=== PATIENT | male | born 1930 | race Caucasian/White ===

== ENCOUNTER 2020-04-04 12:30 | Emergency (ER) | payer OTHER ==
[2020-04-04] MEDS ORDERED: Sodium Chloride 0.9% 10 ML Syringe FLUSH PRN (12:46)
--- NOTE | 2020-04-04 13:17 | CT ---
Head CT Technique: Multiple axial sections through the brain were obtained. Intravenous contrast was not utilized. Comparison: No prior intracranial imaging is available. Findings: Ventricles along with basal cisterns and sulci over the convexities are moderately prominent. Diminished density is noted within the periventricular white matter most likely representing small vessel ischemic demyelination change. No other abnormal parenchymal densities are seen. No evidence of intracranial hemorrhage. No midline shift or mass effect is seen. Mild mucosal thickening is scattered within the ethmoid sinuses. Large portion of the left frontal sinus is opacified. Visualized mastoid sinuses show nothing acute. No acute calvarial abnormality is appreciated. Impression: 1. Paranasal sinus findings as noted above most likely representing chronic sinusitis. 2. Senescent change as noted above. 3. No acute intracranial abnormality is appreciated. Diagnostic code #3 Study was dictated in MDT
--- NOTE | 2020-04-04 14:26 | EDM.PDOC ---
ED HPI GENERAL MEDICAL PROBLEM - General Chief Complaint: Neuro Symptoms/Deficits Stated Complaint: R ARM WEAKNESS/ R BLURRED VISION Time Seen by Provider: 04/04/20 12:38 Source of Information: Reports: Patient, RN Notes Reviewed - History of Present Illness INITIAL COMMENTS - FREE TEXT/NARRATIVE: 89 yr old male referred here from [facility] for eval of possible R hand and arm weakness. He states he first noticed this about 6 month ago. He states he has stated it before to a son of his but his daughter had not heard of this problem until today. He states his R foot will occasionally catch on a rug. He has had no other difficulty walking or with daily life. He has lived alone for about the past 17 yrs after his had to go to a NH. He states vision R eye is " a little blury" but that also started "about last September, 6 months ago". Last known well 6 months ago. No hx of Htn, CAD, diabetes, CVA or TIA. He does not smoke. No recent fall or injury. 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 [No Known Home Meds] 04/04/20 [History] Past Medical History Genitourinary History: Reports: Prostate Disorder Musculoskeletal History: Reports: Other (See Below) Other Musculoskeletal History: surgery for sciatic issues - Past Surgical History GI Surgical History: Reports: Appendectomy Social & Family History - Tobacco Use Smoking Status *Q: Former Smoker Used Tobacco, but Quit: Yes Month/Year Tobacco Last Used: 50 - Caffeine Use Caffeine Use: Reports: Coffee, Soda, Tea - Recreational Drug Use Recreational Drug Use: No ED ROS GENERAL - Review of Systems Review Of Systems: See Below Constitutional: Denies: Fever, Chills, Diaphoresis HEENT: Denies: Ear Pain, Eye Discharge, Eye Pain, Sinus Problem, Throat Pain Respiratory: Denies: Shortness of Breath Cardiovascular: Denies: Chest Pain GI/Abdominal: Denies: Abdominal Pain, Nausea, Vomiting Musculoskeletal: Reports: Neck Pain (mild R chronic), Back Pain (Mild R upper back chronic). Denies: Shoulder Pain, Arm Pain Neurological: Reports: Numbness (mild numbness R forehead also present for a "long time"), Weakness (very mild weakness R hand and arm, possible weakness RLE) ED EXAM, NEURO - Physical Exam Exam: See Below General Appearance: Alert, No Apparent Distress Eye Exam: Bilateral Eye: Other (R pupil very mildly larger than L pupil, hx of prior cataract surgery) Nose: Normal Inspection Throat/Mouth: Normal Inspection Head Exam: Atraumatic. No: Facial Swelling Neck: Supple Respiratory/Chest: No Respiratory Distress, Lungs Clear, Normal Breath Sounds Cardiovascular: Regular Rate, Rhythm GI/Abdominal: Soft, Non-Tender Neurological: Alert, No Motor/Sensory Deficits, Oriented x 3, Other (normal finger to nose bilat, ambulatory without difficulty, no evidence for foot drop, or dragging of either foot) Back Exam: No: CVA Tenderness (L), CVA Tenderness (R) Extremities: Normal Inspection, Normal Range of Motion Skin Exam: Warm, Dry, Normal Color, No Rash EKG INTERPRETATION EKG Date: 04/04/20 Rhythm: Other (NSR, 1 PVC) [place]: Normal P-Wave: Present Course - Vital Signs Last Recorded V/S: Last Vital Signs Temp 97.3 F 04/04/20 12:40 Pulse 89 04/04/20 12:40 Resp 23 H 04/04/20 12:40 BP 174/81 H 04/04/20 12:40 Pulse Ox 99 04/04/20 12:40 - Orders/Labs/Meds Orders: Active Orders 24 hr Category Date Time Status EKG 12 Lead [EKG Documentation Completion] [RC] STAT Care 04/04/20 12:46 Active Peripheral IV Care [RC] . DIRECTED Care 04/04/20 12:47 Active INR,PT,PROTHROMBIN TIME [COAG] Stat Lab 04/04/20 12:48 Received Sodium Chloride 0.9% [Saline Flush] Med 04/04/20 12:46 Active 10 ml FLUSH ASDIRECTED PRN Peripheral IV Insertion Adult [OM.PC] Stat Oth 04/04/20 12:47 Ordered Medication Orders Sodium Chloride (Saline Flush) 10 ml FLUSH ASDIRECTED PRN PRN Reason: Keep Vein Open Labs: Laboratory Tests 04/04/20 04/04/20 04/04/20 Range/Units 12:42 12:48 12:48 WBC 8.12 (4.23-9.07) K/mm3 RBC 5.26 (4.63-6.08) M/mm3 Hgb 15.7 (13.7-17.5) gm/dl Hct 48.9 (40.1-51.0) % MCV 93.0 H (79.0-92.2) fl MCH 29.8 (25.7-32.2) pg MCHC 32.1 L (32.2-35.5) g/dl RDW Std Deviation 49.9 H (35.1-43.9) fL Plt Count 165 (163-337) K/mm3 MPV 10.7 (9.4-12.3) fl Neut % (Auto) 55.8 (34.0-67.9) % Lymph % (Auto) 28.9 (21.8-53.1) % [place] % (Auto) 9.7 (5.3-12.2) % Eos % (Auto) 4.6 (0.8-7.0) Baso % (Auto) 0.5 (0.1-1.2) % Neut # (Auto) 4.53 (1.78-5.38) K/mm3 Lymph # (Auto) 2.35 (1.32-3.57) K/mm3 [place] # (Auto) 0.79 (0.30-0.82) K/mm3 Eos # (Auto) 0.37 (0.04-0.54) K/mm3 Baso # (Auto) 0.04 (0.01-0.08) K/mm3 Sodium 142 (136-145) mEq/L Potassium 4.0 (3.5-5.1) mEq/L Chloride 105 (98-107) mEq/L Carbon Dioxide 27 (21-32) mEq/L Anion Gap 14.0 (5-15) BUN 15 (7-18) mg/dL Creatinine 1.8 H (0.7-1.3) mg/dL Est Cr Clr Drug Dosing TNP Estimated GFR (MDRD) 36 (>60) mL/min BUN/Creatinine Ratio 8.3 L (14-18) Glucose 155 H (83-115) mg/dL POC Glucose 125 H (83-110) mg/dL Calcium 8.9 (8.5-10.1) mg/dL Total Bilirubin 1.0 (0.2-1.0) mg/dL AST 21 (15-37) U/L ALT 25 (16-63) U/L Alkaline Phosphatase 75 (46-116) U/L Total Protein 7.2 (6.4-8.2) g/dl Albumin 3.7 (3.4-5.0) g/dl Globulin 3.5 gm/dL Albumin/Globulin Ratio 1.1 (1-2) Meds: Medications Generic Name Dose Route Start Last Admin Trade Name Manfred PRN Reason Stop Dose Admin Sodium Chloride 10 ml 04/04/20 12:46 Saline Flush FLUSH ASDIRECTED PRN Keep Vein Open - Re-Assessments/Exams Free Text/Narrative Re-Assessment/Exam: 04/04/20 14:58. Head CT no acute changes, labs are OK, creat 1.8, no prior values available for comparison. I see no indication for further workup at this time. His neuro exam is normal. He is ambulatory without difficulty. His last know well by history is last September. I am going to start him on baby a spirin 81 mg every other day. Departure - Departure Time of Disposition: 14:22 Disposition: Home, Self-Care 01 Condition: Fair Clinical Impression: Muscle weakness - Discharge Information Referrals: Frieda Hester MD [Primary Care Provider] - Forms: ED Department Discharge Additional Instructions: Continue acetaminophen up to 2 or 3 times daily if needed for discomfort. Restart aspirin 81 mg every other day or about 3 times a week. Follow up clinic as needed. Get your anual Physical at [facility] in April as planned. See your eye Dr if vision worsening in any way or if you have not had an eye exam in the past year. Return to ED as needed if symptoms worsening in any way. Sepsis Event Note (ED) - Evaluation Sepsis Screening Result: No Definite Risk - Focused Exam Vital Signs: Vital Signs Temp Pulse Resp BP Pulse Ox 04/04/20 12:40 97.3 F 89 23 H 174/81 H 99 - My Orders Last 24 Hours: My Active Orders 04/04/20 12:46 EKG 12 Lead [EKG Documentation Completion] [RC] STAT Sodium Chloride 0.9% [Saline Flush] 10 ml FLUSH ASDIRECTED PRN 04/04/20 12:47 Peripheral IV Care [RC] . DIRECTED Peripheral IV Insertion Adult [OM.PC] Stat 04/04/20 12:48 INR,PT,PROTHROMBIN TIME [COAG] Stat - Assessment/Plan Last 24 Hours: My Active Orders 04/04/20 12:46 EKG 12 Lead [EKG Documentation Completion] [RC] STAT Sodium Chloride 0.9% [Saline Flush] 10 ml FLUSH ASDIRECTED PRN 04/04/20 12:47 Peripheral IV Care [RC] . DIRECTED Peripheral IV Insertion Adult [OM.PC] Stat 04/04/20 12:48 INR,PT,PROTHROMBIN TIME [COAG] Stat
== END 2020-04-04 14:30 | disposition home or self-care (01) ==
LOC: JD.ED 12:30
DX: M62.81 Muscle weakness (generalized) (principal); Z87.891 Personal history of nicotine dependence
CPT/HCPCS: 36415; 70450; 70450-26; 80053; 82962; 85025; 85610; 93005; 93010; 99283; 99285-25

== ENCOUNTER 2021-05-10 17:04 | Inpatient (IN) | payer OTHER, MEDICARE ==
--- NOTE | 2021-05-10 17:38 | EDM.PDOC ---
ED HPI GENERAL MEDICAL PROBLEM - General Chief Complaint: Respiratory Problem Stated Complaint: [facility] Time Seen by Provider: 05/10/21 17:37 Source of Information: Reports: Patient History Limitations: Reports: No Limitations - History of Present Illness INITIAL COMMENTS - FREE TEXT/NARRATIVE: 89-year-old male presents to the ED per [facility] from his own home. He states that he has been sick for 9 days. Started with loss of voice and hoarseness. Mild sore throat. Nasal congestion. Then developed fever, chills, headache, generalized myalgia. Increasing productive cough over the last 3 days. Very weak. No appetite. Did have some diarrhea for a couple of days better today. Has not eaten today. Eaten very little in the last 3 days. States he has not been taking his medication either. He has not had COVID-19 vaccine. Patient does have a productive sounding cough. O2 sats are 96% room air. Onset: Sudden Onset Date: 05/01/21 (He estimates he has been ill for the last 9 days.) Duration: Day(s):, Getting Worse Location: Reports: Chest (Harsh paroxysmal productive cough of yellow sputum.), Generalized (Neurolysed weakness. Complete loss of appetite.), Other (Loss of appetite. Generalized severe weakness) Quality: Reports: Ache (Neurolysed body aches) Severity: Moderate Improves with: Reports: None Worsens with: Reports: Other (Very weak and dizzy upon standing.) Context: Reports: Other (Illness with fever chills x9 days). Denies: Activity, Exercise, Lifting, Sick Contact, Trauma Associated Symptoms: Reports: Cough, cough w sputum, Diaphoresis (Productive cough yellow sputum. No hemoptysis), Fever/Chills, Headaches, Loss of Appetite, Malaise, Nausea/Vomiting, Shortness of Breath, Other (Nausea with no vomiting mild diarrhea none none today). 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 [No Known Home Meds] 04/04/20 [History] Past Medical History Genitourinary History: Reports: Prostate Disorder Musculoskeletal History: Reports: Other (See Below) Other Musculoskeletal History: surgery for sciatic issues - Past Surgical History GI Surgical History: Reports: Appendectomy Social & Family History - Caffeine Use Caffeine Use: Reports: Coffee, Soda, Tea - Living Situation & Occupation Living situation: Reports: Occupation: Retired ED ROS GENERAL - Review of Systems Review Of Systems: See Below Constitutional: Reports: Fever, Chills, Malaise, Weakness, Fatigue, Decreased Appetite, Weight Loss HEENT: Reports: Glasses Respiratory: Reports: Shortness of Breath, Wheezing, Cough, Sputum. Denies: Pleuritic Chest Pain, Hemoptysis (Yellow sputum reported) Cardiovascular: Reports: Chest Pain (Central chest pain from coughing so much), Dyspnea on Exertion, Lightheadedness (With standing). Denies: Blood Pressure Problem, Claudication, Edema, Orthopnea Endocrine: Reports: Fatigue GI/Abdominal: Reports: Diarrhea (Diarrhea for 3 days. 2-3 bowel once a day none today), Nausea. Denies: Vomiting : Reports: Other (Urine is dark delvin in color. He thinks he is only gone once in the last 24 hours) Musculoskeletal: Reports: Neck Pain, Shoulder Pain (Chronic neck pain), Back Pain (Chronic low back pain), Joint Pain ( bilateral shoulder pain knees and hips at times) Skin: Reports: No Symptoms Neurological: Reports: Dizziness, Headache (Occasionally when standing.), Difficulty Walking (Severe generalized weakness. Due to weakness and shortness of breath), Weakness. Denies: Confusion, Numbness, Pre-Existing Deficit, Tingling ( With initial onset of illness not bad the last 3 days), Trouble Speaking Psychiatric: Reports: No Symptoms Hematologic/Lymphatic: Reports: No Symptoms Immunologic: Reports: No Symptoms ED EXAM, GENERAL - Physical Exam Exam: See Below Exam Limited By: Other (Mildly hard of hearing. Poor historian.) General Appearance: Moderate Distress (Appears ill.), Other ( Is very warm to palpation. Temperature is 37.2 but he feels warmer than this. Heart rate was 88 in sinus. Respiratory of 22 with O2 sats of 96 to 97% room air. BP 126/50.) Eye Exam: Bilateral Eye: Normal Inspection (No blepharal pallor or scleral icterus.), PERRL Ears: Other (Left ear was occluded with cerumen.) Throat/Mouth: Normal Inspection, Other (Tongue is moderately dry and coated) Head: Atraumatic, Normocephalic Neck: Normal Inspection, Supple, Limited Range of Motion. No: Lymphadenopathy (L), Lymphadenopathy (R) Respiratory/Chest: Respiratory Distress (Tachypnea at rest.), Decreased Breath Sounds (Creased air into the lower 25% lung griffin bilaterally), Rhonchi (Chi throughout the light right lung field particular right posterior lung.), Wheezing (Occasional expiratory wheeze both lower lobes). No: Lungs Clear, Normal Breath Sounds Cardiovascular: Regular Rate, Rhythm, No Gallop, No Murmur, No Rub. No: Normal Peripheral Pulses Peripheral Pulses: 1+: Posterior Tibial (L), Posterior Tibial (R), Dorsalis Pedis (L), Dorsalis Pedis (R), 2+: Carotid (L), Carotid (R) GI/Abdominal: Normal Bowel Sounds, Soft, Non-Tender, No Organomegaly, No Mass, Pelvis Stable Back Exam: Normal Inspection, Decreased Range of Motion (Patient has difficulty sitting up without help due to weakness and some pain in his lower back.). No: CVA Tenderness (L), CVA Tenderness (R) Extremities: Non-Tender, Pedal Edema (Trace edema at the ankles.), Other (Osteoarthritic changes both knees. Very limited internal/external rotation of either hip.). No: Normal Range of Motion Neurological: Alert, Oriented, CN II-XII Intact, Normal Cognition Psychiatric: Flat Affect, Other (He will answer me but he will not answer the nursing staff.) Skin Exam: Warm, Dry, Intact, Normal Color, No Rash #1 Interpretation EKG Date: 05/10/21 Time: 18:12 Rhythm: NSR Rate (Beats/Min): 84 Jackson: Normal P-Wave: Enlarged (Left atrial hypertrophy) QRS: Other (Q waves V1 and V2 old anteroseptal myocardial infarction. Decreased voltage limb leads) ST-T: Other (Diffuse early repolarization pattern with no signs of ischemia) QT: Normal EKG Interpretation Comments: Abnormal ECG Course - Vital Signs Last Recorded V/S: Last Vital Signs Temp 37.2 C 05/10/21 18:10 Pulse 88 05/10/21 17:10 Resp 22 H 05/10/21 17:10 BP 126/50 L 05/10/21 17:10 Pulse Ox 98 05/10/21 17:10 - Orders/Labs/Meds Orders: Active Orders 24 hr Category Date Time Status Admission Status [Patient Status] [ADT] Routine ADT 05/10/21 19:57 Ordered BLOOD CULTURE [MREF] Stat Lab 05/10/21 18:14 Received BLOOD CULTURE [MREF] Stat Lab 05/10/21 18:29 Received PROCALCITONIN [REF] Stat Lab 05/10/21 18:14 Received URINALYSIS W/MICROSCOPIC [UA W/MICROSCOPIC] [URIN] Stat Lab 05/10/21 19:35 Results Dextrose 5%-0.9% NaCl [Dextrose 5%-Normal Saline] 1,000 Med 05/10/21 19:30 Active ml IV ASDIRECTED Blood Culture x2 Reflex Set [OM.PC] Stat Oth 05/10/21 17:56 Ordered Medication Orders Dextrose/Sodium Chloride (Dextrose 5%-Normal Saline) 1,000 mls @ 150 mls/hr IV ASDIRECTED CARLOS A Labs: Laboratory Tests 05/10/21 05/10/21 05/10/21 Range/Units 17:15 18:14 18:14 WBC 3.63 L (4.23-9.07) K/mm3 RBC 4.87 (4.63-6.08) M/mm3 Hgb 14.6 (13.7-17.5) gm/dl Hct 43.5 (40.1-51.0) % MCV 89.3 D (79.0-92.2) fl MCH 30.0 (25.7-32.2) pg MCHC 33.6 (32.2-35.5) g/dl RDW Std Deviation 49.0 H (35.1-43.9) fL Plt Count 131 L (163-337) K/mm3 MPV 10.8 (9.4-12.3) fl Neutrophils % (Manual) 77 H (40-60) % Band Neutrophils % 0 (0-10) % Lymphocytes % (Manual) 17 L (20-40) % Atypical Lymphs % 0 % Monocytes % (Manual) 6 (2-10) % Eosinophils % (Manual) 0 L (0.8-7.0) % Basophils % (Manual) 0 L (0.2-1.2) Toxic Granulation Few Platelet Estimate Decreased Plt Morphology Comment See note RBC Morph Comment Normal ESR (0-15) mm/hr PT 10.8 (9.7-12.0) SECONDS INR 1.01 APTT 31.3 (21.7-31.4) SECONDS D-Dimer, Quantitative (0.19-0.50) mg/L Sodium (136-145) mEq/L Potassium (3.5-5.1) mEq/L Chloride (98-107) mEq/L Carbon Dioxide (21-32) mEq/L Anion Gap (5-15) BUN (7-18) mg/dL Creatinine (0.7-1.3) mg/dL Est Cr Clr Drug Dosing mL/min Estimated GFR (MDRD) (>60) mL/min BUN/Creatinine Ratio (14-18) Glucose (70-99) mg/dL Calcium (8.5-10.1) mg/dL Magnesium (1.8-2.4) mg/dL Total Bilirubin (0.2-1.0) mg/dL AST (15-37) U/L ALT (16-63) U/L Alkaline Phosphatase (46-116) U/L Troponin I (0.00-0.056) ng/mL C-Reactive Protein (<1.0) mg/dL NT-Pro-B Natriuret Pep (0-450) pg/mL Total Protein (6.4-8.2) g/dl Albumin (3.4-5.0) g/dl Globulin gm/dL Albumin/Globulin Ratio (1-2) Urine Color (Yellow) Urine Appearance (Clear) Urine pH (5.0-8.0) Ur Specific Sikes (1.005-1.030) Urine Protein (Negative) Urine Glucose (UA) (Negative) Urine Ketones (Negative) Urine Occult Blood (Negative) Urine Nitrite (Negative) Urine Bilirubin (Negative) Urine Urobilinogen (0.2-1.0) Ur Leukocyte Esterase (Negative) SARS-CoV-2 RNA (REMA) Positive H (NEGATIVE) 05/10/21 05/10/21 05/10/21 Range/Units 18:14 18:14 18:14 WBC (4.23-9.07) K/mm3 RBC (4.63-6.08) M/mm3 Hgb (13.7-17.5) gm/dl Hct (40.1-51.0) % MCV (79.0-92.2) fl MCH (25.7-32.2) pg MCHC (32.2-35.5) g/dl RDW Std Deviation (35.1-43.9) fL Plt Count (163-337) K/mm3 MPV (9.4-12.3) fl Neutrophils % (Manual) (40-60) % Band Neutrophils % (0-10) % Lymphocytes % (Manual) (20-40) % Atypical Lymphs % % Monocytes % (Manual) (2-10) % Eosinophils % (Manual) (0.8-7.0) % Basophils % (Manual) (0.2-1.2) Toxic Granulation Platelet Estimate Plt Morphology Comment RBC Morph Comment ESR 34 H (0-15) mm/hr PT (9.7-12.0) SECONDS INR APTT (21.7-31.4) SECONDS D-Dimer, Quantitative (0.19-0.50) mg/L Sodium 137 (136-145) mEq/L Potassium 4.3 (3.5-5.1) mEq/L Chloride 102 (98-107) mEq/L Carbon Dioxide 27 (21-32) mEq/L Anion Gap 12.3 (5-15) BUN 23 H (7-18) mg/dL Creatinine 1.6 H (0.7-1.3) mg/dL Est Cr Clr Drug Dosing 31.30 mL/min Estimated GFR (MDRD) 41 (>60) mL/min BUN/Creatinine Ratio 14.4 (14-18) Glucose 131 H (70-99) mg/dL Calcium 7.6 L (8.5-10.1) mg/dL Magnesium 2.4 (1.8-2.4) mg/dL Total Bilirubin 0.9 (0.2-1.0) mg/dL AST 96 H (15-37) U/L ALT 72 H (16-63) U/L Alkaline Phosphatase 108 (46-116) U/L Troponin I 0.028 (0.00-0.056) ng/mL C-Reactive Protein 5.5 H* (<1.0) mg/dL NT-Pro-B Natriuret Pep 408 (0-450) pg/mL Total Protein 6.7 (6.4-8.2) g/dl Albumin 2.8 L (3.4-5.0) g/dl Globulin 3.9 gm/dL Albumin/Globulin Ratio 0.7 L (1-2) Urine Color (Yellow) Urine Appearance (Clear) Urine pH (5.0-8.0) Ur Specific Sikes (1.005-1.030) Urine Protein (Negative) Urine Glucose (UA) (Negative) Urine Ketones (Negative) Urine Occult Blood (Negative) Urine Nitrite (Negative) Urine Bilirubin (Negative) Urine Urobilinogen (0.2-1.0) Ur Leukocyte Esterase (Negative) SARS-CoV-2 RNA (REMA) (NEGATIVE) 05/10/21 05/10/21 Range/Units 18:14 19:35 WBC (4.23-9.07) K/mm3 RBC (4.63-6.08) M/mm3 Hgb (13.7-17.5) gm/dl Hct (40.1-51.0) % MCV (79.0-92.2) fl MCH (25.7-32.2) pg MCHC (32.2-35.5) g/dl RDW Std Deviation (35.1-43.9) fL Plt Count (163-337) K/mm3 MPV (9.4-12.3) fl Neutrophils % (Manual) (40-60) % Band Neutrophils % (0-10) % Lymphocytes % (Manual) (20-40) % Atypical Lymphs % % Monocytes % (Manual) (2-10) % Eosinophils % (Manual) (0.8-7.0) % Basophils % (Manual) (0.2-1.2) Toxic Granulation Platelet Estimate Plt Morphology Comment RBC Morph Comment ESR (0-15) mm/hr PT (9.7-12.0) SECONDS INR APTT (21.7-31.4) SECONDS D-Dimer, Quantitative 1.62 H (0.19-0.50) mg/L Sodium (136-145) mEq/L Potassium (3.5-5.1) mEq/L Chloride (98-107) mEq/L Carbon Dioxide (21-32) mEq/L Anion Gap (5-15) BUN (7-18) mg/dL Creatinine (0.7-1.3) mg/dL Est Cr Clr Drug Dosing mL/min Estimated GFR (MDRD) (>60) mL/min BUN/Creatinine Ratio (14-18) Glucose (70-99) mg/dL Calcium (8.5-10.1) mg/dL Magnesium (1.8-2.4) mg/dL Total Bilirubin (0.2-1.0) mg/dL AST (15-37) U/L ALT (16-63) U/L Alkaline Phosphatase (46-116) U/L Troponin I (0.00-0.056) ng/mL C-Reactive Protein (<1.0) mg/dL NT-Pro-B Natriuret Pep (0-450) pg/mL Total Protein (6.4-8.2) g/dl Albumin (3.4-5.0) g/dl Globulin gm/dL Albumin/Globulin Ratio (1-2) Urine Color Yellow (Yellow) Urine Appearance Slt cloudy H (Clear) Urine pH 6.0 (5.0-8.0) Ur Specific Sikes 1.025 (1.005-1.030) Urine Protein 2+ H (Negative) Urine Glucose (UA) Trace H (Negative) Urine Ketones Negative (Negative) Urine Occult Blood 1+ H (Negative) Urine Nitrite Negative (Negative) Urine Bilirubin Negative (Negative) Urine Urobilinogen 0.2 (0.2-1.0) Ur Leukocyte Esterase Negative (Negative) SARS-CoV-2 RNA (REMA) (NEGATIVE) Meds: Medications Generic Name Dose Route Start Last Admin Trade Name Freq PRN Reason Stop Dose Admin Dextrose/Sodium Chloride 1,000 mls @ 150 mls/hr 05/10/21 19:30 Dextrose 5%-Normal Saline IV ASDIRECTED CARLOS A Discontinued Medications Generic Name Dose Route Start Last Admin Trade Name Freq PRN Reason Stop Dose Admin Acetaminophen 650 mg 05/10/21 17:57 05/10/21 18:10 Acetaminophen 325 Mg Tab PO 05/10/21 17:58 650 mg ONETIME ONE Administration Dextrose/Sodium Chloride 1,000 mls @ 500 mls/hr 05/10/21 18:00 05/10/21 18:10 Dextrose 5%-Normal Saline IV 500 mls/hr ASDIRECTED CARLOS A Administration - Radiology Interpretation Free Text/Narrative:: 89-year-old male presents to the ED from his own home where he resides alone. He is a . He presents with a 9-day history of illness. States he started with a hoarse sore throat and nasal congestion. Then it progressed to generalized fever body aches headache with decreased ability to eat and drink. Had 3 days of mild diarrhea. Better today. No appetite with inability to eat at all the last 2 days. Paroxysmal productive cough of yellow sputum. No hemoptysis. Patient is states he is so weak he can hardly walk to the bathroom today. He believes he is only voided once in the last 12 hours. Urine is dark delvin in color. Examination reveals him to be febrile. He does have a very harsh productive sounding cough. Rhonchi throughout the right lung base both anterior and posterior lung. Few crackles at base of left lung. Benign abdomen. Concern for pneumonia versus Covid pneumonia. He will have a complete septic work-up including blood cultures x2. IV will be D5 normal saline at 500 mils per hour. At present he is oxygenating satisfactorily on room air. He will be given Tylenol 650 mg p.o. for fever relief. - Re-Assessments/Exams Free Text/Narrative Re-Assessment/Exam: 05/10/21 18:20 chest x-ray done portably reveals a marked infiltrate in the right lower lobe of the lung almost consolidated pneumonia. There is faint infiltrate left lower lobe as well. Moderate cardiomegaly with tortuous thoracic aorta. Slightly widened upper mediastinum. No pneumothorax no obvious pleural effusion. 05/10/21 18:21 Lab called over and indicates the patient is COVID-19 positive. 05/10/21 19:13 White count is on the low side of normal at 3.63. Differential shows 77% neutrophils no bands cells. Hemoglobin is 14.6 with hematocrit of 43.5. Platelet count is low at 131,000. PT is 10.8 with an INR of 1.01. PTT is 31.3. Sodium 137 with potassium of 4.3. Chloride is 102 with a bicarb of 27. Anion gap is 12.3. BUN is slightly elevated at 23. Creatinine elevated 1.6. GFR is 41. I stage IIIb renal insufficiency glucose is slightly elevated 131. Calcium low at 7.6 from not being able to eat. Magnesium 2.4. Bilirubin is 0.9 AST elevated at 96 and ALT of 72. Alkaline phosphatase is 108. Troponin I 0.028. C-reactive protein 5.5 total protein 6.7. Albumin fraction is 2.8 with a globulin fraction of 3.9 COVID-19 screen is positive. Urinalysis reveals mild proteinuria but no signs of infection 05/10/21 19:40: I have spoken with on-call hospitalist and he will see the patient in the emergency department. I spoke to the patient and identified problems identified in his lab work and chest x-ray with COVID-19 pneumonia right lower lung. His O2 sats remained 96% room air. He feels improved after receiving IV fluids. Also fever relief. Patient will be admitted to the [facility] surgery floor on telemetry. He was somewhat ambivalent about whether or not he wanted for his CODE STATUS. Decision made at this time he will remain code level 1. Departure - Departure Time of Disposition: 20:45 Disposition: Admitted As Inpatient 68 Condition: Serious Clinical Impression: Pneumonia due to COVID-19 virus, Weakness, Loss of appetite Leukopenia Qualifiers: Leukopenia type: neutropenia Neutropenia type: due to infection Qualified Code(s): D70.3 - Neutropenia due to infection Benign prostatic hyperplasia Qualifiers: Lower urinary tract symptom presence: symptoms present Lower urinary tract symptom detail: incomplete bladder emptying Qualified Code(s): N40.1 - Benign prostatic hyperplasia with lower urinary tract symptoms; R39.14 - Feeling of incomplete bladder emptying - Discharge Information *PRESCRIPTION DRUG MONITORING PROGRAM REVIEWED*: Not Applicable *COPY OF PRESCRIPTION DRUG MONITORING REPORT IN PATIENT ANEL: Not Applicable Referrals: PCP,Not In Area [Primary Care Provider] - Forms: ED Department Discharge Sepsis Event Note (ED) - Evaluation Sepsis Screening Result: No Definite Risk - Focused Exam Vital Signs: Vital Signs Temp Temp Pulse Resp BP Pulse Ox 05/10/21 18:10 37.2 C 05/10/21 17:10 37.2 C 88 22 H 126/50 L 98 - My Orders Last 24 Hours: My Active Orders 05/10/21 17:56 Blood Culture x2 Reflex Set [OM.PC] Stat 05/10/21 18:14 BLOOD CULTURE [MREF] Stat PROCALCITONIN [REF] Stat 05/10/21 18:29 BLOOD CULTURE [MREF] Stat 05/10/21 19:30 Dextrose 5%-0.9% NaCl [Dextrose 5%-Normal Saline] 1,000 ml IV ASDIRECTED 05/10/21 19:35 URINALYSIS W/MICROSCOPIC [UA W/MICROSCOPIC] [URIN] Stat 05/10/21 19:57 Admission Status [Patient Status] [ADT] Routine - Assessment/Plan Last 24 Hours: My Active Orders 05/10/21 17:56 Blood Culture x2 Reflex Set [OM.PC] Stat 05/10/21 18:14 BLOOD CULTURE [MREF] Stat PROCALCITONIN [REF] Stat 05/10/21 18:29 BLOOD CULTURE [MREF] Stat 05/10/21 19:30 Dextrose 5%-0.9% NaCl [Dextrose 5%-Normal Saline] 1,000 ml IV ASDIRECTED 05/10/21 19:35 URINALYSIS W/MICROSCOPIC [UA W/MICROSCOPIC] [URIN] Stat 05/10/21 19:57 Admission Status [Patient Status] [ADT] Routine
[2021-05-10] MEDS ORDERED: Acetaminophen 325 MG Tab PO ONE (17:57)
[2021-05-10] MEDS ORDERED: Dextrose 5%-0.9% NaCl 1,000 ML IV SCH ×2 (18:00→19:30)
--- NOTE | 2021-05-10 19:12 | CR ---
Chest: Portable view of the chest was obtained. Comparison: No prior chest imaging is available. Early consolidation is seen within the right lung base as well as within the left lung base. Heart size and mediastinum are within normal limits for portable technique. Slight degenerative change is scattered within the spine. Impression: 1. Findings suspicious for multifocal pneumonia. Please rule out COVID disease. Diagnostic code #3
[2021-05-10] MEDS ORDERED: Ondansetron 4 MG/2 ML SDV IV PRN (19:57)
[2021-05-10] MEDS ORDERED: Ondansetron 4 MG Tab.DIS PO PRN (19:57)
[2021-05-10] MEDS ORDERED: Sodium Chloride 0.9% 10 ML Syringe FLUSH PRN (19:57)
[2021-05-10] MEDS ORDERED: Docusate Sodium 100 MG Cap PO PRN (19:57)
[2021-05-10] MEDS ORDERED: REMDESIVIR 200 MG in Sodium Chloride 0.9% 250 ML IV ONE (20:02)
[2021-05-10] MEDS ORDERED: Acetaminophen 325 MG Tab PO PRN (20:02)
--- NOTE | 2021-05-10 20:10 | PCM.HP.2 ---
H&P History of Present Illness - General Date of Service: 05/10/21 Admit Problem/Dx: Admission Diagnosis/Problem Admission Diagnosis/Problem Pneumonia due to infectious organism Source of Information: Patient, Provider - History of Present Illness Initial Comments - Free Text/Narative: Patient is an 89-year-old [employer] who presents to the [facility] emergency department with a chief complaint of generally not feeling well for approximately 9 days. Most notable symptoms have been generalized body and joint aches. He has had a cough for the better part of 2 weeks with sputum production that has been green in color. He has occasionally felt hot with a some chills. No rigors have been appreciated. He has not noted any chest pain, chest pressure, pleurisy or shortness of breath. Denies any nausea vomiting or diarrhea. No abdominal pain. No difficulties with voiding. No recent skin changes. No neurologic symptoms. Has retained sense of taste and smell. No headaches. Patient presents with an acute febrile temperature. He has not appeared toxic to ER staff. Rapid COVID-19 testing was positive. Chest x-ray notable for bibasilar infiltrates. Overall physical examination, general appearance and laboratory studies are relatively modest and benign. Due to the patient's advanced age and radiographic bilateral lower lobe pneumonitis with infiltrate, the patient was referred to the internal medicine service. Of note, the patient has not been vaccinated. The patient has likely not been hypoxic up to this point. A 14 point review of systems was reviewed with the patient entirely and only pertinent for the above information. CODE STATUS: Reviewed with the patient and he wishes to be DNR/DNI. - Related Data Allergies/Adverse Reactions: Allergies Allergy/AdvReac Type Severity Reaction Status Date / Time No Known Allergies Allergy Verified 05/10/21 17:27 Home Medications: Home Meds . [No Known Home Meds] 04/04/20 [History] Past Medical History Genitourinary History: Reports: Prostate Disorder Musculoskeletal History: Reports: Other (See Below) Other Musculoskeletal History: surgery for sciatic issues - Past Surgical History GI Surgical History: Reports: Appendectomy Social & Family History - Tobacco Use Tobacco Use Status *Q: Never Tobacco User Second Hand Smoke Exposure: No - Caffeine Use Caffeine Use: Reports: None - Recreational Drug Use Recreational Drug Use: No - Living Situation & Occupation Living situation: Reports: Occupation: Retired H&P Review of Systems - Review of Systems: Review Of Systems: Comprehensive ROS is negative, except as noted in HPI. Exam - Exam Exam: See Below - Vital Signs Vital Signs: Last Vital Signs Temp 99.0 F 05/10/21 18:10 Pulse 88 05/10/21 17:10 Resp 22 H 05/10/21 17:10 BP 126/50 L 05/10/21 17:10 Pulse Ox 98 05/10/21 17:10 Weight: 240 lb - Exam Quality Assessment: No: Supplemental Oxygen Physical Exam Comments:: General: Awake and alert, in no apparent distress. Nontoxic-appearing. Warm to the touch. HEENT: Normocephalic, atraumatic. Extra ocular muscles intact. Pupils equal and reactive to light. Nares are patent. Oropharynx clear without erythema or exudate. Tongue is midline. Neck: Supple without lymphadenopathy. No goiter. Trachea midline. Heart: Regular rate and rhythm. S1 and S2 heard without murmur or extrasystoles. Lungs: Coughing during exam without sputum production. Clear to auscultation bilaterally in the upper griffin. Bibasilar Rales. No wheezing or rhonchi. Abdomen: Soft, nontender, nondistended. Positive bowel sounds. No CVA tenderness. No suprapubic tenderness. Extremities: Warm and perfused. No clubbing, cyanosis, or edema. Integument: No obvious rash or jaundice. No lymphadenopathy. Neurologic: Cranial nerves II through XII grossly intact. No obvious gross motor or sensory deficits. Musculoskeletal: No obvious range of motion deficits, joint deformities or effusions. Psychiatric: Normal mood and affect. - Patient Data Lab Results Last 24 hrs: Laboratory Results - last 24 hr 05/10/21 05/10/21 05/10/21 Range/Units 17:15 18:14 18:14 WBC 3.63 L (4.23-9.07) K/mm3 RBC 4.87 (4.63-6.08) M/mm3 Hgb 14.6 (13.7-17.5) gm/dl Hct 43.5 (40.1-51.0) % MCV 89.3 D (79.0-92.2) fl MCH 30.0 (25.7-32.2) pg MCHC 33.6 (32.2-35.5) g/dl RDW Std Deviation 49.0 H (35.1-43.9) fL Plt Count 131 L (163-337) K/mm3 MPV 10.8 (9.4-12.3) fl Neutrophils % (Manual) 77 H (40-60) % Band Neutrophils % 0 (0-10) % Lymphocytes % (Manual) 17 L (20-40) % Atypical Lymphs % 0 % Monocytes % (Manual) 6 (2-10) % Eosinophils % (Manual) 0 L (0.8-7.0) % Basophils % (Manual) 0 L (0.2-1.2) Toxic Granulation Few Platelet Estimate Decreased Plt Morphology Comment See note RBC Morph Comment Normal ESR (0-15) mm/hr PT 10.8 (9.7-12.0) SECONDS INR 1.01 APTT 31.3 (21.7-31.4) SECONDS D-Dimer, Quantitative (0.19-0.50) mg/L Sodium (136-145) mEq/L Potassium (3.5-5.1) mEq/L Chloride (98-107) mEq/L Carbon Dioxide (21-32) mEq/L Anion Gap (5-15) BUN (7-18) mg/dL Creatinine (0.7-1.3) mg/dL Est Cr Clr Drug Dosing mL/min Estimated GFR (MDRD) (>60) mL/min BUN/Creatinine Ratio (14-18) Glucose (70-99) mg/dL Calcium (8.5-10.1) mg/dL Magnesium (1.8-2.4) mg/dL Total Bilirubin (0.2-1.0) mg/dL AST (15-37) U/L ALT (16-63) U/L Alkaline Phosphatase (46-116) U/L Troponin I (0.00-0.056) ng/mL C-Reactive Protein (<1.0) mg/dL NT-Pro-B Natriuret Pep (0-450) pg/mL Total Protein (6.4-8.2) g/dl Albumin (3.4-5.0) g/dl Globulin gm/dL Albumin/Globulin Ratio (1-2) Urine Color (Yellow) Urine Appearance (Clear) Urine pH (5.0-8.0) Ur Specific [place] (1.005-1.030) Urine Protein (Negative) Urine Glucose (UA) (Negative) Urine Ketones (Negative) Urine Occult Blood (Negative) Urine Nitrite (Negative) Urine Bilirubin (Negative) Urine Urobilinogen (0.2-1.0) Ur Leukocyte Esterase (Negative) SARS-CoV-2 RNA (REMA) Positive H (NEGATIVE) 05/10/21 05/10/21 05/10/21 Range/Units 18:14 18:14 18:14 WBC (4.23-9.07) K/mm3 RBC (4.63-6.08) M/mm3 Hgb (13.7-17.5) gm/dl Hct (40.1-51.0) % MCV (79.0-92.2) fl MCH (25.7-32.2) pg MCHC (32.2-35.5) g/dl RDW Std Deviation (35.1-43.9) fL Plt Count (163-337) K/mm3 MPV (9.4-12.3) fl Neutrophils % (Manual) (40-60) % Band Neutrophils % (0-10) % Lymphocytes % (Manual) (20-40) % Atypical Lymphs % % Monocytes % (Manual) (2-10) % Eosinophils % (Manual) (0.8-7.0) % Basophils % (Manual) (0.2-1.2) Toxic Granulation Platelet Estimate Plt Morphology Comment RBC Morph Comment ESR 34 H (0-15) mm/hr PT (9.7-12.0) SECONDS INR APTT (21.7-31.4) SECONDS D-Dimer, Quantitative (0.19-0.50) mg/L Sodium 137 (136-145) mEq/L Potassium 4.3 (3.5-5.1) mEq/L Chloride 102 (98-107) mEq/L Carbon Dioxide 27 (21-32) mEq/L Anion Gap 12.3 (5-15) BUN 23 H (7-18) mg/dL Creatinine 1.6 H (0.7-1.3) mg/dL Est Cr Clr Drug Dosing 31.30 mL/min Estimated GFR (MDRD) 41 (>60) mL/min BUN/Creatinine Ratio 14.4 (14-18) Glucose 131 H (70-99) mg/dL Calcium 7.6 L (8.5-10.1) mg/dL Magnesium 2.4 (1.8-2.4) mg/dL Total Bilirubin 0.9 (0.2-1.0) mg/dL AST 96 H (15-37) U/L ALT 72 H (16-63) U/L Alkaline Phosphatase 108 (46-116) U/L Troponin I 0.028 (0.00-0.056) ng/mL C-Reactive Protein 5.5 H* (<1.0) mg/dL NT-Pro-B Natriuret Pep 408 (0-450) pg/mL Total Protein 6.7 (6.4-8.2) g/dl Albumin 2.8 L (3.4-5.0) g/dl Globulin 3.9 gm/dL Albumin/Globulin Ratio 0.7 L (1-2) Urine Color (Yellow) Urine Appearance (Clear) Urine pH (5.0-8.0) Ur Specific [place] (1.005-1.030) Urine Protein (Negative) Urine Glucose (UA) (Negative) Urine Ketones (Negative) Urine Occult Blood (Negative) Urine Nitrite (Negative) Urine Bilirubin (Negative) Urine Urobilinogen (0.2-1.0) Ur Leukocyte Esterase (Negative) SARS-CoV-2 RNA (REMA) (NEGATIVE) 05/10/21 05/10/21 Range/Units 18:14 19:35 WBC (4.23-9.07) K/mm3 RBC (4.63-6.08) M/mm3 Hgb (13.7-17.5) gm/dl Hct (40.1-51.0) % MCV (79.0-92.2) fl MCH (25.7-32.2) pg MCHC (32.2-35.5) g/dl RDW Std Deviation (35.1-43.9) fL Plt Count (163-337) K/mm3 MPV (9.4-12.3) fl Neutrophils % (Manual) (40-60) % Band Neutrophils % (0-10) % Lymphocytes % (Manual) (20-40) % Atypical Lymphs % % Monocytes % (Manual) (2-10) % Eosinophils % (Manual) (0.8-7.0) % Basophils % (Manual) (0.2-1.2) Toxic Granulation Platelet Estimate Plt Morphology Comment RBC Morph Comment ESR (0-15) mm/hr PT (9.7-12.0) SECONDS INR APTT (21.7-31.4) SECONDS D-Dimer, Quantitative 1.62 H (0.19-0.50) mg/L Sodium (136-145) mEq/L Potassium (3.5-5.1) mEq/L Chloride (98-107) mEq/L Carbon Dioxide (21-32) mEq/L Anion Gap (5-15) BUN (7-18) mg/dL Creatinine (0.7-1.3) mg/dL Est Cr Clr Drug Dosing mL/min Estimated GFR (MDRD) (>60) mL/min BUN/Creatinine Ratio (14-18) Glucose (70-99) mg/dL Calcium (8.5-10.1) mg/dL Magnesium (1.8-2.4) mg/dL Total Bilirubin (0.2-1.0) mg/dL AST (15-37) U/L ALT (16-63) U/L Alkaline Phosphatase (46-116) U/L Troponin I (0.00-0.056) ng/mL C-Reactive Protein (<1.0) mg/dL NT-Pro-B Natriuret Pep (0-450) pg/mL Total Protein (6.4-8.2) g/dl Albumin (3.4-5.0) g/dl Globulin gm/dL Albumin/Globulin Ratio (1-2) Urine Color Yellow (Yellow) Urine Appearance Slt cloudy H (Clear) Urine pH 6.0 (5.0-8.0) Ur Specific [place] 1.025 (1.005-1.030) Urine Protein 2+ H (Negative) Urine Glucose (UA) Trace H (Negative) Urine Ketones Negative (Negative) Urine Occult Blood 1+ H (Negative) Urine Nitrite Negative (Negative) Urine Bilirubin Negative (Negative) Urine Urobilinogen 0.2 (0.2-1.0) Ur Leukocyte Esterase Negative (Negative) SARS-CoV-2 RNA (REMA) (NEGATIVE) Result Diagrams: 05/10/21 18:14 05/10/21 18:14 Imaging Impressions Last 24 hrs: Chest x-ray personally reviewed. Bibasilar infiltrates. Sepsis Event Note - Evaluation Sepsis Screening Result: No Definite Risk - Focused Exam Vital Signs: Vital Signs Temp Temp Pulse Resp BP Pulse Ox 05/10/21 18:10 99.0 F 05/10/21 17:10 99.0 F 88 22 H 126/50 L 98 Problem List Initiated/Reviewed/Updated: Yes Orders Last 24hrs: Active Orders 24 hr Category Date Time Status Admission Status [Patient Status] [ADT] Routine ADT 05/10/21 19:57 Active Patient Status [ADT] Routine ADT 05/10/21 19:57 Ordered Nurse Communication: Isolation [RC] ASDIRECTED Care 05/10/21 20:02 Ordered Oxygen Therapy [RC] PRN Care 05/10/21 19:57 Ordered Positioning, Patient [RC] ASDIRECTED Care 05/10/21 20:02 Ordered Pulse Oximetry [RC] CONTINUOUS Care 05/10/21 19:59 Ordered RT Incentive Spirometry [RC] ASDIRECTED Care 05/10/21 20:02 Ordered Up With Assistance [RC] ASDIRECTED Care 05/10/21 19:57 Ordered VTE/DVT Education [RC] PER UNIT ROUTINE Care 05/10/21 19:57 Ordered Vital Signs [RC] Q4H Care 05/10/21 19:57 Ordered Respiratory Care Assess and Treatment [CONS] Routine Cons 05/10/21 19:57 Ordered Regular Diet [DIET] Diet 05/10/21 Breakfast Ordered BLOOD CULTURE [MREF] Stat Lab 05/10/21 18:14 Received BLOOD CULTURE [MREF] Stat Lab 05/10/21 18:29 Received C-REACTIVE PROTEIN [CHEM] Routine Lab 05/11/21 06:00 Ordered CBC WITH AUTO DIFF [HEME] Routine Lab 05/10/21 19:57 Ordered COMPREHENSIVE METABOLIC PN,CMP [CHEM] Routine Lab 05/11/21 06:00 Ordered LACTATE DEHYDROGENASE,LDH [CHEM] Routine Lab 05/10/21 20:02 Ordered PROCALCITONIN [REF] Stat Lab 05/10/21 18:14 Received URINALYSIS W/MICROSCOPIC [UA W/MICROSCOPIC] [URIN] Stat Lab 05/10/21 19:35 Results Acetaminophen [TylenoL] Med 05/10/21 20:02 Ordered 650 mg PO Q4H PRN Ascorbic Acid [Vitamin C] Med 05/10/21 21:00 Ordered 500 mg PO BID Dextrose 5%-0.9% NaCl [Dextrose 5%-Normal Saline] 1,000 Med 05/10/21 19:30 Active ml IV ASDIRECTED Docusate Sodium [Colace] Med 05/10/21 19:57 Ordered 100 mg PO BID PRN Heparin Sodium Med 05/10/21 20:00 Ordered 5,000 units SUBCUT Q8H Ondansetron [Zofran ODT] Med 05/10/21 19:57 Ordered 4 mg PO Q4H PRN Ondansetron [Zofran] Med 05/10/21 19:57 Ordered 4 mg IV Q4H PRN Remdesivir 100 mg Med 05/11/21 20:15 Ordered Sodium Chloride 0.9% [Normal Saline] 100 ml IV Q24H Sodium Chloride 0.9% [Saline Flush] Med 05/10/21 19:57 Ordered 10 ml FLUSH ASDIRECTED PRN Zinc Sulfate [Zincate] Med 05/10/21 20:15 Ordered 220 mg PO DAILY dexAMETHasone Med 05/10/21 20:15 Ordered 6 mg PO DAILY Blood Culture x2 Reflex Set [OM.PC] Stat Ot 05/10/21 17:56 Ordered Isolation [COMM] Stat Ot 05/10/21 20:02 Ordered RT Acapella [RESPCARE] Routine Oth 05/10/21 20:02 Ordered Saline Lock Insert [OM.PC] Routine Oth 05/10/21 19:57 Ordered Resuscitation Status Routine Resus Stat 05/10/21 19:57 Ordered Medication Orders Acetaminophen (Acetaminophen 325 Mg Tab) 650 mg PO Q4H PRN PRN Reason: Fever Greater Than 101 Ascorbic Acid (Ascorbic Acid 500 Mg Tab) 500 mg PO BID CARLOS A Dexamethasone (Dexamethasone 4 Mg Tab) 6 mg PO DAILY [facility] Stop: 05/19/21 09:01 Docusate Sodium (Docusate Sodium 100 Mg Cap) 100 mg PO BID PRN PRN Reason: Constipation Heparin Sodium (Porcine) (Heparin Sodium 5,000 Units/Ml Vial) 5,000 units SUBCUT Q8H CARLOS A Dextrose/Sodium Chloride (Dextrose 5%-Normal Saline) 1,000 mls @ 150 mls/hr IV ASDIRECTED CARLOS A Remdesivir 100 mg/ Sodium (Chloride) 100 mls @ 100 mls/hr IV Q24H CARLOS A Stop: 05/14/21 21:14 Ondansetron HCl (Ondansetron 4 Mg Tab.Dis) 4 mg PO Q4H PRN PRN Reason: nausea, able to take PO Ondansetron HCl (Ondansetron 4 Mg/2 Ml Sdv) 4 mg IV Q4H PRN PRN Reason: Nausea/Vomiting Sodium Chloride (Sodium Chloride 0.9% 10 Ml Syringe) 10 ml FLUSH ASDIRECTED PRN PRN Reason: Keep Vein Open Zinc Sulfate (Zinc Sulfate 220 Mg Cap) 220 mg PO DAILY CARLOS A Assessment/Plan Comment:: 89-year-old male who presents to the [facility] emergency department with generalized flulike symptoms and found to be coronavirus 19+ with bibasilar infiltrates. 1. Acute COVID-19 with bilateral pneumonitis/infiltrates. Admit to the hospitalist service. Continue steroids with dexamethasone for now. Does not require high-dose. Initiate remdesivir protocol. Patient does not appear toxic and is not hypoxic. Initiate supplemental oxygen if needed. Continue Acapella and incentive spirometry. Proning position has been encouraged. Trending inflammatory markers. Holding off on convalescent plasma and Tocilizumab considering patient's current status. Respiratory therapy consult. Duo nebs as needed. Supplemental zinc and vitamin C. Further symptomatic control with antiemetics and antipyretics as necessary. CODE STATUS: DNR/DNI. Hypercoagulable prophylaxis with heparin.
[2021-05-10] MEDS ORDERED: Dexamethasone 4 MG Tab PO SCH (20:15)
[2021-05-10] MEDS: Heparin Sodium 5,000 Units/ML Vial SUBCUT SCH (21:07)
[2021-05-10] MEDS: Ascorbic Acid 500 MG Tab PO SCH (21:08)
[2021-05-10] MEDS: Zinc Sulfate 220 MG Cap PO SCH (21:09)
[2021-05-11] MEDS: Heparin Sodium 5,000 Units/ML Vial SUBCUT SCH ×3 (03:32→19:52)
[2021-05-11] MEDS: Zinc Sulfate 220 MG Cap PO SCH (08:00)
[2021-05-11] MEDS: Ascorbic Acid 500 MG Tab PO SCH ×3 (08:00→22:26)
--- NOTE | 2021-05-11 08:30 | PCM.PN ---
<Kendall Duckworth - Last Filed: 05/11/21 11:06> - General Info Date of Service: 05/11/21 Admission Dx/Problem (Free Text): Admission Diagnosis/Problem Admission Diagnosis/Problem Pneumonia due to infectious organism Functional Status: Reports: Pain Controlled, Tolerating Diet, Ambulating, Urinating, Incentive Spirometry, Other (Acapella). Denies: New Symptoms - Review of Systems General: Reports: No Symptoms, Weakness, Fatigue, Malaise. Denies: Fever, Chills HEENT: Reports: No Symptoms. Denies: Headaches, Sore Throat Pulmonary: Reports: Cough, Sputum, Wheezing. Denies: Shortness of Breath, Pleuritic Chest Pain Cardiovascular: Reports: No Symptoms. Denies: Chest Pain, Palpitations, Dyspnea on Exertion, Edema, Lightheadedness Gastrointestinal: Reports: No Symptoms. Denies: Abdominal Pain, Constipation, Diarrhea, Nausea, Vomiting Genitourinary: Reports: No Symptoms. Denies: Pain Musculoskeletal: Reports: No Symptoms Skin: Reports: No Symptoms. Denies: Cyanosis Neurological: Reports: Weakness. Denies: Confusion, Pre-Existing Deficit, Difficulty Walking, Gait Disturbance Psychiatric: Reports: No Symptoms - Patient Data Vitals - Most Recent: Last Vital Signs Temp 98.1 F 05/11/21 07:22 Pulse 75 05/11/21 07:22 Resp 16 05/11/21 07:22 BP 139/47 L 05/11/21 07:22 Pulse Ox 97 05/11/21 07:22 Weight - Most Recent: 221 lb 8 oz I&O - Last 24 Hours: Intake & Output 05/10/21 05/11/21 05/11/21 22:59 06:59 14:59 Intake Total 844 Balance 844 Lab Results Last 24 Hours: Laboratory Results - last 24 hr 05/10/21 05/10/21 05/10/21 Range/Units 17:15 18:14 18:14 WBC 3.63 L (4.23-9.07) K/mm3 RBC 4.87 (4.63-6.08) M/mm3 Hgb 14.6 (13.7-17.5) gm/dl Hct 43.5 (40.1-51.0) % MCV 89.3 D (79.0-92.2) fl MCH 30.0 (25.7-32.2) pg MCHC 33.6 (32.2-35.5) g/dl RDW Std Deviation 49.0 H (35.1-43.9) fL Plt Count 131 L (163-337) K/mm3 MPV 10.8 (9.4-12.3) fl Neut % (Auto) (34.0-67.9) % Lymph % (Auto) (21.8-53.1) % [place] % (Auto) (5.3-12.2) % Eos % (Auto) (0.8-7.0) Baso % (Auto) (0.1-1.2) % Neut # (Auto) (1.78-5.38) K/mm3 Lymph # (Auto) (1.32-3.57) K/mm3 [place] # (Auto) (0.30-0.82) K/mm3 Eos # (Auto) (0.04-0.54) K/mm3 Baso # (Auto) (0.01-0.08) K/mm3 Neutrophils % (Manual) 77 H (40-60) % Band Neutrophils % 0 (0-10) % Lymphocytes % (Manual) 17 L (20-40) % Atypical Lymphs % 0 % Monocytes % (Manual) 6 (2-10) % Eosinophils % (Manual) 0 L (0.8-7.0) % Basophils % (Manual) 0 L (0.2-1.2) Toxic Granulation Few Platelet Estimate Decreased Plt Morphology Comment See note RBC Morph Comment Normal ESR (0-15) mm/hr PT 10.8 (9.7-12.0) SECONDS INR 1.01 APTT 31.3 (21.7-31.4) SECONDS D-Dimer, Quantitative (0.19-0.50) mg/L Sodium (136-145) mEq/L Potassium (3.5-5.1) mEq/L Chloride (98-107) mEq/L Carbon Dioxide (21-32) mEq/L Anion Gap (5-15) BUN (7-18) mg/dL Creatinine (0.7-1.3) mg/dL Est Cr Clr Drug Dosing mL/min Estimated GFR (MDRD) (>60) mL/min BUN/Creatinine Ratio (14-18) Glucose (70-99) mg/dL Calcium (8.5-10.1) mg/dL Magnesium (1.8-2.4) mg/dL Total Bilirubin (0.2-1.0) mg/dL AST (15-37) U/L ALT (16-63) U/L Alkaline Phosphatase (46-116) U/L Lactate Dehydrogenase (85-227) U/L Troponin I (0.00-0.056) ng/mL C-Reactive Protein (<1.0) mg/dL NT-Pro-B Natriuret Pep (0-450) pg/mL Total Protein (6.4-8.2) g/dl Albumin (3.4-5.0) g/dl Globulin gm/dL Albumin/Globulin Ratio (1-2) Urine Color (Yellow) Urine Appearance (Clear) Urine pH (5.0-8.0) Ur Specific [place] (1.005-1.030) Urine Protein (Negative) Urine Glucose (UA) (Negative) Urine Ketones (Negative) Urine Occult Blood (Negative) Urine Nitrite (Negative) Urine Bilirubin (Negative) Urine Urobilinogen (0.2-1.0) Ur Leukocyte Esterase (Negative) Urine RBC (0-5) /hpf Urine WBC (0-5) /hpf Ur Epithelial Cells (0-5) /hpf Urine Bacteria (FEW) /hpf Urine Mucus (FEW) /hpf SARS-CoV-2 RNA (REMA) Positive H (NEGATIVE) 05/10/21 05/10/21 05/10/21 Range/Units 18:14 18:14 18:14 WBC (4.23-9.07) K/mm3 RBC (4.63-6.08) M/mm3 Hgb (13.7-17.5) gm/dl Hct (40.1-51.0) % MCV (79.0-92.2) fl MCH (25.7-32.2) pg MCHC (32.2-35.5) g/dl RDW Std Deviation (35.1-43.9) fL Plt Count (163-337) K/mm3 MPV (9.4-12.3) fl Neut % (Auto) (34.0-67.9) % Lymph % (Auto) (21.8-53.1) % [place] % (Auto) (5.3-12.2) % Eos % (Auto) (0.8-7.0) Baso % (Auto) (0.1-1.2) % Neut # (Auto) (1.78-5.38) K/mm3 Lymph # (Auto) (1.32-3.57) K/mm3 [place] # (Auto) (0.30-0.82) K/mm3 Eos # (Auto) (0.04-0.54) K/mm3 Baso # (Auto) (0.01-0.08) K/mm3 Neutrophils % (Manual) (40-60) % Band Neutrophils % (0-10) % Lymphocytes % (Manual) (20-40) % Atypical Lymphs % % Monocytes % (Manual) (2-10) % Eosinophils % (Manual) (0.8-7.0) % Basophils % (Manual) (0.2-1.2) Toxic Granulation Platelet Estimate Plt Morphology Comment RBC Morph Comment ESR 34 H (0-15) mm/hr PT (9.7-12.0) SECONDS INR APTT (21.7-31.4) SECONDS D-Dimer, Quantitative (0.19-0.50) mg/L Sodium 137 (136-145) mEq/L Potassium 4.3 (3.5-5.1) mEq/L Chloride 102 (98-107) mEq/L Carbon Dioxide 27 (21-32) mEq/L Anion Gap 12.3 (5-15) BUN 23 H (7-18) mg/dL Creatinine 1.6 H (0.7-1.3) mg/dL Est Cr Clr Drug Dosing 31.30 mL/min Estimated GFR (MDRD) 41 (>60) mL/min BUN/Creatinine Ratio 14.4 (14-18) Glucose 131 H (70-99) mg/dL Calcium 7.6 L (8.5-10.1) mg/dL Magnesium 2.4 (1.8-2.4) mg/dL Total Bilirubin 0.9 (0.2-1.0) mg/dL AST 96 H (15-37) U/L ALT 72 H (16-63) U/L Alkaline Phosphatase 108 (46-116) U/L Lactate Dehydrogenase (85-227) U/L Troponin I 0.028 (0.00-0.056) ng/mL C-Reactive Protein 5.5 H* (<1.0) mg/dL NT-Pro-B Natriuret Pep 408 (0-450) pg/mL Total Protein 6.7 (6.4-8.2) g/dl Albumin 2.8 L (3.4-5.0) g/dl Globulin 3.9 gm/dL Albumin/Globulin Ratio 0.7 L (1-2) Urine Color (Yellow) Urine Appearance (Clear) Urine pH (5.0-8.0) Ur Specific [place] (1.005-1.030) Urine Protein (Negative) Urine Glucose (UA) (Negative) Urine Ketones (Negative) Urine Occult Blood (Negative) Urine Nitrite (Negative) Urine Bilirubin (Negative) Urine Urobilinogen (0.2-1.0) Ur Leukocyte Esterase (Negative) Urine RBC (0-5) /hpf Urine WBC (0-5) /hpf Ur Epithelial Cells (0-5) /hpf Urine Bacteria (FEW) /hpf Urine Mucus (FEW) /hpf SARS-CoV-2 RNA (REMA) (NEGATIVE) 05/10/21 05/10/21 05/10/21 Range/Units 18:14 18:14 19:35 WBC (4.23-9.07) K/mm3 RBC (4.63-6.08) M/mm3 Hgb (13.7-17.5) gm/dl Hct (40.1-51.0) % MCV (79.0-92.2) fl MCH (25.7-32.2) pg MCHC (32.2-35.5) g/dl RDW Std Deviation (35.1-43.9) fL Plt Count (163-337) K/mm3 MPV (9.4-12.3) fl Neut % (Auto) (34.0-67.9) % Lymph % (Auto) (21.8-53.1) % [place] % (Auto) (5.3-12.2) % Eos % (Auto) (0.8-7.0) Baso % (Auto) (0.1-1.2) % Neut # (Auto) (1.78-5.38) K/mm3 Lymph # (Auto) (1.32-3.57) K/mm3 [place] # (Auto) (0.30-0.82) K/mm3 Eos # (Auto) (0.04-0.54) K/mm3 Baso # (Auto) (0.01-0.08) K/mm3 Neutrophils % (Manual) (40-60) % Band Neutrophils % (0-10) % Lymphocytes % (Manual) (20-40) % Atypical Lymphs % % Monocytes % (Manual) (2-10) % Eosinophils % (Manual) (0.8-7.0) % Basophils % (Manual) (0.2-1.2) Toxic Granulation Platelet Estimate Plt Morphology Comment RBC Morph Comment ESR (0-15) mm/hr PT (9.7-12.0) SECONDS INR APTT (21.7-31.4) SECONDS D-Dimer, Quantitative 1.62 H (0.19-0.50) mg/L Sodium (136-145) mEq/L Potassium (3.5-5.1) mEq/L Chloride (98-107) mEq/L Carbon Dioxide (21-32) mEq/L Anion Gap (5-15) BUN (7-18) mg/dL Creatinine (0.7-1.3) mg/dL Est Cr Clr Drug Dosing mL/min Estimated GFR (MDRD) (>60) mL/min BUN/Creatinine Ratio (14-18) Glucose (70-99) mg/dL Calcium (8.5-10.1) mg/dL Magnesium (1.8-2.4) mg/dL Total Bilirubin (0.2-1.0) mg/dL AST (15-37) U/L ALT (16-63) U/L Alkaline Phosphatase (46-116) U/L Lactate Dehydrogenase 475 H (85-227) U/L Troponin I (0.00-0.056) ng/mL C-Reactive Protein (<1.0) mg/dL NT-Pro-B Natriuret Pep (0-450) pg/mL Total Protein (6.4-8.2) g/dl Albumin (3.4-5.0) g/dl Globulin gm/dL Albumin/Globulin Ratio (1-2) Urine Color Yellow (Yellow) Urine Appearance Slt cloudy H (Clear) Urine pH 6.0 (5.0-8.0) Ur Specific [place] 1.025 (1.005-1.030) Urine Protein 2+ H (Negative) Urine Glucose (UA) Trace H (Negative) Urine Ketones Negative (Negative) Urine Occult Blood 1+ H (Negative) Urine Nitrite Negative (Negative) Urine Bilirubin Negative (Negative) Urine Urobilinogen 0.2 (0.2-1.0) Ur Leukocyte Esterase Negative (Negative) Urine RBC Not seen (0-5) /hpf Urine WBC 0-5 (0-5) /hpf Ur Epithelial Cells 0-5 (0-5) /hpf Urine Bacteria Moderate H (FEW) /hpf Urine Mucus Not seen (FEW) /hpf SARS-CoV-2 RNA (REMA) (NEGATIVE) 05/10/21 05/11/21 Range/Units 20:53 06:17 WBC 3.33 L (4.23-9.07) K/mm3 RBC 4.53 L (4.63-6.08) M/mm3 Hgb 13.6 L (13.7-17.5) gm/dl Hct 40.6 (40.1-51.0) % MCV 89.6 (79.0-92.2) fl MCH 30.0 (25.7-32.2) pg MCHC 33.5 (32.2-35.5) g/dl RDW Std Deviation 48.5 H (35.1-43.9) fL Plt Count 116 L (163-337) K/mm3 MPV 10.7 (9.4-12.3) fl Neut % (Auto) 70.9 H (34.0-67.9) % Lymph % (Auto) 21.0 L (21.8-53.1) % [place] % (Auto) 6.6 (5.3-12.2) % Eos % (Auto) 0 L (0.8-7.0) Baso % (Auto) 0.3 (0.1-1.2) % Neut # (Auto) 2.36 (1.78-5.38) K/mm3 Lymph # (Auto) 0.70 L (1.32-3.57) K/mm3 [place] # (Auto) 0.22 L (0.30-0.82) K/mm3 Eos # (Auto) 0.00 L (0.04-0.54) K/mm3 Baso # (Auto) 0.01 (0.01-0.08) K/mm3 Neutrophils % (Manual) (40-60) % Band Neutrophils % (0-10) % Lymphocytes % (Manual) (20-40) % Atypical Lymphs % % Monocytes % (Manual) (2-10) % Eosinophils % (Manual) (0.8-7.0) % Basophils % (Manual) (0.2-1.2) Toxic Granulation Platelet Estimate Plt Morphology Comment RBC Morph Comment ESR (0-15) mm/hr PT (9.7-12.0) SECONDS INR APTT (21.7-31.4) SECONDS D-Dimer, Quantitative (0.19-0.50) mg/L Sodium 139 (136-145) mEq/L Potassium 4.9 (3.5-5.1) mEq/L Chloride 105 (98-107) mEq/L Carbon Dioxide 24 (21-32) mEq/L Anion Gap 14.9 (5-15) BUN 18 (7-18) mg/dL Creatinine 1.4 H (0.7-1.3) mg/dL Est Cr Clr Drug Dosing 35.77 mL/min Estimated GFR (MDRD) 48 (>60) mL/min BUN/Creatinine Ratio 12.9 L (14-18) Glucose 273 H (70-99) mg/dL Calcium 7.3 L (8.5-10.1) mg/dL Magnesium (1.8-2.4) mg/dL Total Bilirubin 0.8 (0.2-1.0) mg/dL AST 95 H (15-37) U/L ALT 74 H (16-63) U/L Alkaline Phosphatase 116 (46-116) U/L Lactate Dehydrogenase (85-227) U/L Troponin I (0.00-0.056) ng/mL C-Reactive Protein 6.3 H* (<1.0) mg/dL NT-Pro-B Natriuret Pep (0-450) pg/mL Total Protein 6.1 L (6.4-8.2) g/dl Albumin 2.4 L (3.4-5.0) g/dl Globulin 3.7 gm/dL Albumin/Globulin Ratio 0.7 L (1-2) Urine Color (Yellow) Urine Appearance (Clear) Urine pH (5.0-8.0) Ur Specific [place] (1.005-1.030) Urine Protein (Negative) Urine Glucose (UA) (Negative) Urine Ketones (Negative) Urine Occult Blood (Negative) Urine Nitrite (Negative) Urine Bilirubin (Negative) Urine Urobilinogen (0.2-1.0) Ur Leukocyte Esterase (Negative) Urine RBC (0-5) /hpf Urine WBC (0-5) /hpf Ur Epithelial Cells (0-5) /hpf Urine Bacteria (FEW) /hpf Urine Mucus (FEW) /hpf SARS-CoV-2 RNA (REMA) (NEGATIVE) Med Orders - Current: Current Medications Acetaminophen (Acetaminophen 325 Mg Tab) 650 mg PO Q4H PRN PRN Reason: Fever Greater Than 101 Ascorbic Acid (Ascorbic Acid 500 Mg Tab) 500 mg PO BID ON LICENSE OF [facility] Last Admin: 05/11/21 08:00 Dose: 500 mg Documented by: Dexamethasone (Dexamethasone 4 Mg Tab) 6 mg PO DAILY@1999 ON LICENSE OF [facility] Stop: 05/19/21 20:01 Docusate Sodium (Docusate Sodium 100 Mg Cap) 100 mg PO BID PRN PRN Reason: Constipation Last Admin: 05/10/21 21:08 Dose: 100 mg Documented by: Heparin Sodium (Porcine) (Heparin Sodium 5,000 Units/Ml Vial) 5,000 units SUBCUT Q8H ON LICENSE OF [facility] Last Admin: 05/11/21 03:32 Dose: 5,000 units Documented by: Remdesivir 100 mg/ Sodium (Chloride) 100 mls @ 100 mls/hr IV Q24H ON LICENSE OF [facility] Stop: 05/14/21 20:59 Ondansetron HCl (Ondansetron 4 Mg Tab.Dis) 4 mg PO Q4H PRN PRN Reason: nausea, able to take PO Ondansetron HCl (Ondansetron 4 Mg/2 Ml Sdv) 4 mg IV Q4H PRN PRN Reason: Nausea/Vomiting Sodium Chloride (Sodium Chloride 0.9% 10 Ml Syringe) 10 ml FLUSH ASDIRECTED PRN PRN Reason: Keep Vein Open Zinc Sulfate (Zinc Sulfate 220 Mg Cap) 220 mg PO DAILY ON LICENSE OF [facility] Last Admin: 05/11/21 08:00 Dose: 220 mg Documented by: Discontinued Medications Acetaminophen (Acetaminophen 325 Mg Tab) 650 mg PO ONETIME ONE Stop: 05/10/21 17:58 Last Admin: 05/10/21 18:10 Dose: 650 mg Documented by: Dexamethasone (Dexamethasone 4 Mg Tab) 6 mg PO DAILY ON LICENSE OF [facility] Stop: 05/19/21 09:01 Last Admin: 05/10/21 21:10 Dose: 6 mg Documented by: Dextrose/Sodium Chloride (Dextrose 5%-Normal Saline) 1,000 mls @ 500 mls/hr IV ASDIRECTED CARLOS A Last Admin: 05/10/21 18:10 Dose: 500 mls/hr Documented by: Dextrose/Sodium Chloride (Dextrose 5%-Normal Saline) 1,000 mls @ 150 mls/hr IV ASDIRECTED CARLOS A Last Infusion: 05/11/21 05:40 Dose: 0 mls/hr Documented by: Remdesivir 200 mg/ Sodium (Chloride) 250 mls @ 250 mls/hr IV ONETIME ONE Stop: 05/10/21 20:03 Last Admin: 05/10/21 22:18 Dose: 250 mls/hr Documented by: - Exam Quality Assessment: DVT Prophylaxis. No: Supplemental Oxygen, Urine Catheter General: Alert, Oriented, Cooperative, No Acute Distress HEENT: Pupils Equal, Pupils Reactive, Mucous Membr. Moist/Junction Neck: Supple, Trachea Midline Lungs: Normal Respiratory Effort, Decreased Breath Sounds, Rales, Wheezing. No: Crackles, Rhonchi Cardiovascular: Regular Rate, Regular Rhythm GI/Abdominal Exam: Normal Bowel Sounds, Soft, Non-Tender, No Distention (Male) Exam: Deferred Back Exam: Normal Inspection, Full Range of Motion Extremities: Normal Inspection, Normal Range of Motion, Non-Tender, No Pedal Edema, Normal Capillary Refill Peripheral Pulses: 2+: Radial (L), Radial (R), Dorsalis Pedis (L), Dorsalis Pedis (R) Skin: Warm, Dry, Intact Neurological: No New Focal Deficit Psy/Mental Status: Alert, Normal Affect, Normal Mood - Patient Data Lab Results Last 24 hrs: Laboratory Results - last 24 hr 05/10/21 05/10/21 05/10/21 Range/Units 17:15 18:14 18:14 WBC 3.63 L (4.23-9.07) K/mm3 RBC 4.87 (4.63-6.08) M/mm3 Hgb 14.6 (13.7-17.5) gm/dl Hct 43.5 (40.1-51.0) % MCV 89.3 D (79.0-92.2) fl MCH 30.0 (25.7-32.2) pg MCHC 33.6 (32.2-35.5) g/dl RDW Std Deviation 49.0 H (35.1-43.9) fL Plt Count 131 L (163-337) K/mm3 MPV 10.8 (9.4-12.3) fl Neut % (Auto) (34.0-67.9) % Lymph % (Auto) (21.8-53.1) % [place] % (Auto) (5.3-12.2) % Eos % (Auto) (0.8-7.0) Baso % (Auto) (0.1-1.2) % Neut # (Auto) (1.78-5.38) K/mm3 Lymph # (Auto) (1.32-3.57) K/mm3 [place] # (Auto) (0.30-0.82) K/mm3 Eos # (Auto) (0.04-0.54) K/mm3 Baso # (Auto) (0.01-0.08) K/mm3 Neutrophils % (Manual) 77 H (40-60) % Band Neutrophils % 0 (0-10) % Lymphocytes % (Manual) 17 L (20-40) % Atypical Lymphs % 0 % Monocytes % (Manual) 6 (2-10) % Eosinophils % (Manual) 0 L (0.8-7.0) % Basophils % (Manual) 0 L (0.2-1.2) Toxic Granulation Few Platelet Estimate Decreased Plt Morphology Comment See note RBC Morph Comment Normal ESR (0-15) mm/hr PT 10.8 (9.7-12.0) SECONDS INR 1.01 APTT 31.3 (21.7-31.4) SECONDS D-Dimer, Quantitative (0.19-0.50) mg/L Sodium (136-145) mEq/L Potassium (3.5-5.1) mEq/L Chloride (98-107) mEq/L Carbon Dioxide (21-32) mEq/L Anion Gap (5-15) BUN (7-18) mg/dL Creatinine (0.7-1.3) mg/dL Est Cr Clr Drug Dosing mL/min Estimated GFR (MDRD) (>60) mL/min BUN/Creatinine Ratio (14-18) Glucose (70-99) mg/dL Calcium (8.5-10.1) mg/dL Magnesium (1.8-2.4) mg/dL Total Bilirubin (0.2-1.0) mg/dL AST (15-37) U/L ALT (16-63) U/L Alkaline Phosphatase (46-116) U/L Lactate Dehydrogenase (85-227) U/L Troponin I (0.00-0.056) ng/mL C-Reactive Protein (<1.0) mg/dL NT-Pro-B Natriuret Pep (0-450) pg/mL Total Protein (6.4-8.2) g/dl Albumin (3.4-5.0) g/dl Globulin gm/dL Albumin/Globulin Ratio (1-2) Urine Color (Yellow) Urine Appearance (Clear) Urine pH (5.0-8.0) Ur Specific [place] (1.005-1.030) Urine Protein (Negative) Urine Glucose (UA) (Negative) Urine Ketones (Negative) Urine Occult Blood (Negative) Urine Nitrite (Negative) Urine Bilirubin (Negative) Urine Urobilinogen (0.2-1.0) Ur Leukocyte Esterase (Negative) Urine RBC (0-5) /hpf Urine WBC (0-5) /hpf Ur Epithelial Cells (0-5) /hpf Urine Bacteria (FEW) /hpf Urine Mucus (FEW) /hpf SARS-CoV-2 RNA (REMA) Positive H (NEGATIVE) 05/10/21 05/10/21 05/10/21 Range/Units 18:14 18:14 18:14 WBC (4.23-9.07) K/mm3 RBC (4.63-6.08) M/mm3 Hgb (13.7-17.5) gm/dl Hct (40.1-51.0) % MCV (79.0-92.2) fl MCH (25.7-32.2) pg MCHC (32.2-35.5) g/dl RDW Std Deviation (35.1-43.9) fL Plt Count (163-337) K/mm3 MPV (9.4-12.3) fl Neut % (Auto) (34.0-67.9) % Lymph % (Auto) (21.8-53.1) % [place] % (Auto) (5.3-12.2) % Eos % (Auto) (0.8-7.0) Baso % (Auto) (0.1-1.2) % Neut # (Auto) (1.78-5.38) K/mm3 Lymph # (Auto) (1.32-3.57) K/mm3 [place] # (Auto) (0.30-0.82) K/mm3 Eos # (Auto) (0.04-0.54) K/mm3 Baso # (Auto) (0.01-0.08) K/mm3 Neutrophils % (Manual) (40-60) % Band Neutrophils % (0-10) % Lymphocytes % (Manual) (20-40) % Atypical Lymphs % % Monocytes % (Manual) (2-10) % Eosinophils % (Manual) (0.8-7.0) % Basophils % (Manual) (0.2-1.2) Toxic Granulation Platelet Estimate Plt Morphology Comment RBC Morph Comment ESR 34 H (0-15) mm/hr PT (9.7-12.0) SECONDS INR APTT (21.7-31.4) SECONDS D-Dimer, Quantitative (0.19-0.50) mg/L Sodium 137 (136-145) mEq/L Potassium 4.3 (3.5-5.1) mEq/L Chloride 102 (98-107) mEq/L Carbon Dioxide 27 (21-32) mEq/L Anion Gap 12.3 (5-15) BUN 23 H (7-18) mg/dL Creatinine 1.6 H (0.7-1.3) mg/dL Est Cr Clr Drug Dosing 31.30 mL/min Estimated GFR (MDRD) 41 (>60) mL/min BUN/Creatinine Ratio 14.4 (14-18) Glucose 131 H (70-99) mg/dL Calcium 7.6 L (8.5-10.1) mg/dL Magnesium 2.4 (1.8-2.4) mg/dL Total Bilirubin 0.9 (0.2-1.0) mg/dL AST 96 H (15-37) U/L ALT 72 H (16-63) U/L Alkaline Phosphatase 108 (46-116) U/L Lactate Dehydrogenase (85-227) U/L Troponin I 0.028 (0.00-0.056) ng/mL C-Reactive Protein 5.5 H* (<1.0) mg/dL NT-Pro-B Natriuret Pep 408 (0-450) pg/mL Total Protein 6.7 (6.4-8.2) g/dl Albumin 2.8 L (3.4-5.0) g/dl Globulin 3.9 gm/dL Albumin/Globulin Ratio 0.7 L (1-2) Urine Color (Yellow) Urine Appearance (Clear) Urine pH (5.0-8.0) Ur Specific [place] (1.005-1.030) Urine Protein (Negative) Urine Glucose (UA) (Negative) Urine Ketones (Negative) Urine Occult Blood (Negative) Urine Nitrite (Negative) Urine Bilirubin (Negative) Urine Urobilinogen (0.2-1.0) Ur Leukocyte Esterase (Negative) Urine RBC (0-5) /hpf Urine WBC (0-5) /hpf Ur Epithelial Cells (0-5) /hpf Urine Bacteria (FEW) /hpf Urine Mucus (FEW) /hpf SARS-CoV-2 RNA (REMA) (NEGATIVE) 05/10/21 05/10/21 05/10/21 Range/Units 18:14 18:14 19:35 WBC (4.23-9.07) K/mm3 RBC (4.63-6.08) M/mm3 Hgb (13.7-17.5) gm/dl Hct (40.1-51.0) % MCV (79.0-92.2) fl MCH (25.7-32.2) pg MCHC (32.2-35.5) g/dl RDW Std Deviation (35.1-43.9) fL Plt Count (163-337) K/mm3 MPV (9.4-12.3) fl Neut % (Auto) (34.0-67.9) % Lymph % (Auto) (21.8-53.1) % [place] % (Auto) (5.3-12.2) % Eos % (Auto) (0.8-7.0) Baso % (Auto) (0.1-1.2) % Neut # (Auto) (1.78-5.38) K/mm3 Lymph # (Auto) (1.32-3.57) K/mm3 [place] # (Auto) (0.30-0.82) K/mm3 Eos # (Auto) (0.04-0.54) K/mm3 Baso # (Auto) (0.01-0.08) K/mm3 Neutrophils % (Manual) (40-60) % Band Neutrophils % (0-10) % Lymphocytes % (Manual) (20-40) % Atypical Lymphs % % Monocytes % (Manual) (2-10) % Eosinophils % (Manual) (0.8-7.0) % Basophils % (Manual) (0.2-1.2) Toxic Granulation Platelet Estimate Plt Morphology Comment RBC Morph Comment ESR (0-15) mm/hr PT (9.7-12.0) SECONDS INR APTT (21.7-31.4) SECONDS D-Dimer, Quantitative 1.62 H (0.19-0.50) mg/L Sodium (136-145) mEq/L Potassium (3.5-5.1) mEq/L Chloride (98-107) mEq/L Carbon Dioxide (21-32) mEq/L Anion Gap (5-15) BUN (7-18) mg/dL Creatinine (0.7-1.3) mg/dL Est Cr Clr Drug Dosing mL/min Estimated GFR (MDRD) (>60) mL/min BUN/Creatinine Ratio (14-18) Glucose (70-99) mg/dL Calcium (8.5-10.1) mg/dL Magnesium (1.8-2.4) mg/dL Total Bilirubin (0.2-1.0) mg/dL AST (15-37) U/L ALT (16-63) U/L Alkaline Phosphatase (46-116) U/L Lactate Dehydrogenase 475 H (85-227) U/L Troponin I (0.00-0.056) ng/mL C-Reactive Protein (<1.0) mg/dL NT-Pro-B Natriuret Pep (0-450) pg/mL Total Protein (6.4-8.2) g/dl Albumin (3.4-5.0) g/dl Globulin gm/dL Albumin/Globulin Ratio (1-2) Urine Color Yellow (Yellow) Urine Appearance Slt cloudy H (Clear) Urine pH 6.0 (5.0-8.0) Ur Specific [place] 1.025 (1.005-1.030) Urine Protein 2+ H (Negative) Urine Glucose (UA) Trace H (Negative) Urine Ketones Negative (Negative) Urine Occult Blood 1+ H (Negative) Urine Nitrite Negative (Negative) Urine Bilirubin Negative (Negative) Urine Urobilinogen 0.2 (0.2-1.0) Ur Leukocyte Esterase Negative (Negative) Urine RBC Not seen (0-5) /hpf Urine WBC 0-5 (0-5) /hpf Ur Epithelial Cells 0-5 (0-5) /hpf Urine Bacteria Moderate H (FEW) /hpf Urine Mucus Not seen (FEW) /hpf SARS-CoV-2 RNA (REMA) (NEGATIVE) 05/10/21 05/11/21 Range/Units 20:53 06:17 WBC 3.33 L (4.23-9.07) K/mm3 RBC 4.53 L (4.63-6.08) M/mm3 Hgb 13.6 L (13.7-17.5) gm/dl Hct 40.6 (40.1-51.0) % MCV 89.6 (79.0-92.2) fl MCH 30.0 (25.7-32.2) pg MCHC 33.5 (32.2-35.5) g/dl RDW Std Deviation 48.5 H (35.1-43.9) fL Plt Count 116 L (163-337) K/mm3 MPV 10.7 (9.4-12.3) fl Neut % (Auto) 70.9 H (34.0-67.9) % Lymph % (Auto) 21.0 L (21.8-53.1) % [place] % (Auto) 6.6 (5.3-12.2) % Eos % (Auto) 0 L (0.8-7.0) Baso % (Auto) 0.3 (0.1-1.2) % Neut # (Auto) 2.36 (1.78-5.38) K/mm3 Lymph # (Auto) 0.70 L (1.32-3.57) K/mm3 [place] # (Auto) 0.22 L (0.30-0.82) K/mm3 Eos # (Auto) 0.00 L (0.04-0.54) K/mm3 Baso # (Auto) 0.01 (0.01-0.08) K/mm3 Neutrophils % (Manual) (40-60) % Band Neutrophils % (0-10) % Lymphocytes % (Manual) (20-40) % Atypical Lymphs % % Monocytes % (Manual) (2-10) % Eosinophils % (Manual) (0.8-7.0) % Basophils % (Manual) (0.2-1.2) Toxic Granulation Platelet Estimate Plt Morphology Comment RBC Morph Comment ESR (0-15) mm/hr PT (9.7-12.0) SECONDS INR APTT (21.7-31.4) SECONDS D-Dimer, Quantitative (0.19-0.50) mg/L Sodium 139 (136-145) mEq/L Potassium 4.9 (3.5-5.1) mEq/L Chloride 105 (98-107) mEq/L Carbon Dioxide 24 (21-32) mEq/L Anion Gap 14.9 (5-15) BUN 18 (7-18) mg/dL Creatinine 1.4 H (0.7-1.3) mg/dL Est Cr Clr Drug Dosing 35.77 mL/min Estimated GFR (MDRD) 48 (>60) mL/min BUN/Creatinine Ratio 12.9 L (14-18) Glucose 273 H (70-99) mg/dL Calcium 7.3 L (8.5-10.1) mg/dL Magnesium (1.8-2.4) mg/dL Total Bilirubin 0.8 (0.2-1.0) mg/dL AST 95 H (15-37) U/L ALT 74 H (16-63) U/L Alkaline Phosphatase 116 (46-116) U/L Lactate Dehydrogenase (85-227) U/L Troponin I (0.00-0.056) ng/mL C-Reactive Protein 6.3 H* (<1.0) mg/dL NT-Pro-B Natriuret Pep (0-450) pg/mL Total Protein 6.1 L (6.4-8.2) g/dl Albumin 2.4 L (3.4-5.0) g/dl Globulin 3.7 gm/dL Albumin/Globulin Ratio 0.7 L (1-2) Urine Color (Yellow) Urine Appearance (Clear) Urine pH (5.0-8.0) Ur Specific [place] (1.005-1.030) Urine Protein (Negative) Urine Glucose (UA) (Negative) Urine Ketones (Negative) Urine Occult Blood (Negative) Urine Nitrite (Negative) Urine Bilirubin (Negative) Urine Urobilinogen (0.2-1.0) Ur Leukocyte Esterase (Negative) Urine RBC (0-5) /hpf Urine WBC (0-5) /hpf Ur Epithelial Cells (0-5) /hpf Urine Bacteria (FEW) /hpf Urine Mucus (FEW) /hpf SARS-CoV-2 RNA (REMA) (NEGATIVE) Result Diagrams: 05/10/21 20:53 05/11/21 06:17 Sepsis Event Note - Evaluation Sepsis Screening Result: Possible Sepsis Risk - Focused Exam Vital Signs: Vital Signs Temp Pulse Pulse Resp BP Pulse Ox Pulse Ox 05/11/21 07:22 98.1 F 75 16 139/47 L 97 05/11/21 03:59 75 95 05/11/21 03:47 98.2 F 22 H 137/48 L 05/11/21 01:28 98.4 F 82 20 119/44 L 05/10/21 21:32 96 05/10/21 21:18 98 05/10/21 20:44 99.0 F 76 24 H 141/109 H 96 - Problem List & Annotations (1) Pneumonia due to COVID-19 virus SNOMED Code(s): 821534554338348956 Code(s): U07.1 - COVID-19; J12.82 - PNEUMONIA DUE TO CORONAVIRUS DISEASE 2019 Status: Acute Priority: High Current Visit: Yes (2) Weakness SNOMED Code(s): 60471963 Code(s): R53.1 - WEAKNESS Status: Acute Priority: High Current Visit: Yes (3) Benign prostatic hyperplasia SNOMED Code(s): 161443948 Code(s): N40.0 - BENIGN PROSTATIC HYPERPLASIA WITHOUT LOWER URINRY TRACT SYMP Status: Chronic Priority: Low Current Visit: No Qualifiers: Lower urinary tract symptom presence: symptoms absent Qualified Code(s): N40.0 - Benign prostatic hyperplasia without lower urinary tract symptoms (4) Leukopenia SNOMED Code(s): 69490694, 906834420 Code(s): D72.819 - DECREASED WHITE BLOOD CELL COUNT, UNSPECIFIED Status: Acute Priority: Medium Current Visit: Yes Qualifiers: Leukopenia type: neutropenia Neutropenia type: due to infection Qualified Code(s): D70.3 - Neutropenia due to infection (5) Loss of appetite SNOMED Code(s): 93782015 Code(s): R63.0 - ANOREXIA Status: Acute Priority: High Current Visit: Yes (6) Elevated d-dimer SNOMED Code(s): 328422628 Code(s): R79.89 - OTHER SPECIFIED ABNORMAL FINDINGS OF BLOOD CHEMISTRY St at[facility]: Acute Priority: Medium Current Visit: Yes (7) Hyperglycemia SNOMED Code(s): 97583039 Code(s): R73.9 - HYPERGLYCEMIA, UNSPECIFIED Status: Acute Priority: Medium Current Visit: Yes - Problem List Review Problem List Initiated/Reviewed/Updated: Yes - Assessment Assessment:: 05/11/2021 This is an 89-year-old male admitted to our hospital with COVID-19 pneumonia, weakness, and loss of appetite. He does have a history of BPH. He lives alone in [place]. He has not been hypoxic but is complaining of a productive cough. He does have I-S and Acapella. He was started on remdesivir and dexamethasone. He is also receiving zinc and vitamin C supplementation. Nursing reports the patient has been somewhat weak so we will order PT and OT. There are concerns with his appetite and if he has been able to receive appropriate meals a dietitian is consulted. RT is also consulted. Labs today show a sodium of 139. Potassium 4.9. Chloride 105. Carbon dioxide 24. Anion gap 14.9. BUN is 18. Creatinine 1.6. GFR 48. In reviewing prior labs does appear to be around his baseline. Glucose has been elevated at 273. Calcium 7.3. Total bilirubin 0.8. AST is 95, ALT 74, alkaline phosphatase 116. CRP is 6.3. Protein 6.1. Albumin 2.4. Given his elevated sugars, which were noted on prior visits, will check an A1c. We will recheck a D-dimer tomorrow along with CBC, CMP, CRP, and magnesium. He is on heparin for DVT prophylaxis. Continue current treatment plan. Unknown length of stay due to treatment for Covid pneumonia. - Plan Plan:: Pneumonia due to COVID-19 virus Weakness Leukopenia Loss of appetite Elevated d-dimer * Dexamethasone day 11/01 * Remdesivier day 11/01 * O2 as needed to keep saturations 88-95% * PRN Albuterol inhaler * PRN duonebs * IS/Acapella * Prone whenever able * RT consultation * CM/SW consultation * PT/OT * Delivery Coordinator consultation * Consider CTA if patient becomes hypoxic or D-Dimer changes * Daily labs * Supplement Vitamin C and Zinc * PRN antipyretics * PRN antiemetics * Airborne/Contact isolation * Blood cultures pending * Procalcitonin pending * PRN Robitussin DM for cough Hyperglycemia * Monitor blood sugars * Check A1C * Initiate insulin therapy if indicated Benign prostatic hyperplasia * No acute concerns * Monitor CODE STATUS: DNR/DNI PCP: None DVT prophylaxis: Heparin Social: Resides alone at his home in [place] Disposition: Patient admitted inpatient for management of his COVID-19 pneumonia. Length of stay likely 4 to 5 days pending improvement. <Wan Marquez Jr - Last Filed: 05/11/21 14:44> - Patient Data Vitals - Most Recent: Last Vital Signs Temp 97.9 F 05/11/21 11:14 Pulse 87 05/11/21 11:14 Resp 20 05/11/21 11:14 BP 142/60 H 05/11/21 11:14 Pulse Ox 95 05/11/21 11:14 I&O - Last 24 Hours: Intake & Output 05/10/21 05/11/21 05/11/21 22:59 06:59 14:59 Intake Total 844 90 Balance 844 90 Lab Results Last 24 Hours: Laboratory Results - last 24 hr 05/10/21 05/10/21 05/10/21 Range/Units 17:15 18:14 18:14 WBC 3.63 L (4.23-9.07) K/mm3 RBC 4.87 (4.63-6.08) M/mm3 Hgb 14.6 (13.7-17.5) gm/dl Hct 43.5 (40.1-51.0) % MCV 89.3 D (79.0-92.2) fl MCH 30.0 (25.7-32.2) pg MCHC 33.6 (32.2-35.5) g/dl RDW Std Deviation 49.0 H (35.1-43.9) fL Plt Count 131 L (163-337) K/mm3 MPV 10.8 (9.4-12.3) fl Neut % (Auto) (34.0-67.9) % Lymph % (Auto) (21.8-53.1) % [place] % (Auto) (5.3-12.2) % Eos % (Auto) (0.8-7.0) Baso % (Auto) (0.1-1.2) % Neut # (Auto) (1.78-5.38) K/mm3 Lymph # (Auto) (1.32-3.57) K/mm3 [place] # (Auto) (0.30-0.82) K/mm3 Eos # (Auto) (0.04-0.54) K/mm3 Baso # (Auto) (0.01-0.08) K/mm3 Neutrophils % (Manual) 77 H (40-60) % Band Neutrophils % 0 (0-10) % Lymphocytes % (Manual) 17 L (20-40) % Atypical Lymphs % 0 % Monocytes % (Manual) 6 (2-10) % Eosinophils % (Manual) 0 L (0.8-7.0) % Basophils % (Manual) 0 L (0.2-1.2) Toxic Granulation Few Platelet Estimate Decreased Plt Morphology Comment See note RBC Morph Comment Normal ESR (0-15) mm/hr PT 10.8 (9.7-12.0) SECONDS INR 1.01 APTT 31.3 (21.7-31.4) SECONDS D-Dimer, Quantitative (0.19-0.50) mg/L Sodium (136-145) mEq/L Potassium (3.5-5.1) mEq/L Chloride (98-107) mEq/L Carbon Dioxide (21-32) mEq/L Anion Gap (5-15) BUN (7-18) mg/dL Creatinine (0.7-1.3) mg/dL Est Cr Clr Drug Dosing mL/min Estimated GFR (MDRD) (>60) mL/min BUN/Creatinine Ratio (14-18) Glucose (70-99) mg/dL Hemoglobin A1c ( - 5.6) % Calcium (8.5-10.1) mg/dL Magnesium (1.8-2.4) mg/dL Total Bilirubin (0.2-1.0) mg/dL AST (15-37) U/L ALT (16-63) U/L Alkaline Phosphatase (46-116) U/L Lactate Dehydrogenase (85-227) U/L Troponin I (0.00-0.056) ng/mL C-Reactive Protein (<1.0) mg/dL NT-Pro-B Natriuret Pep (0-450) pg/mL Total Protein (6.4-8.2) g/dl Albumin (3.4-5.0) g/dl Globulin gm/dL Albumin/Globulin Ratio (1-2) Procalcitonin ng/mL Urine Color (Yellow) Urine Appearance (Clear) Urine pH (5.0-8.0) Ur Specific [place] (1.005-1.030) Urine Protein (Negative) Urine Glucose (UA) (Negative) Urine Ketones (Negative) Urine Occult Blood (Negative) Urine Nitrite (Negative) Urine Bilirubin (Negative) Urine Urobilinogen (0.2-1.0) Ur Leukocyte Esterase (Negative) Urine RBC (0-5) /hpf Urine WBC (0-5) /hpf Ur Epithelial Cells (0-5) /hpf Urine Bacteria (FEW) /hpf Urine Mucus (FEW) /hpf SARS-CoV-2 RNA (REMA) Positive H (NEGATIVE) 05/10/21 05/10/21 05/10/21 Range/Units 18:14 18:14 18:14 WBC (4.23-9.07) K/mm3 RBC (4.63-6.08) M/mm3 Hgb (13.7-17.5) gm/dl Hct (40.1-51.0) % MCV (79.0-92.2) fl MCH (25.7-32.2) pg MCHC (32.2-35.5) g/dl RDW Std Deviation (35.1-43.9) fL Plt Count (163-337) K/mm3 MPV (9.4-12.3) fl Neut % (Auto) (34.0-67.9) % Lymph % (Auto) (21.8-53.1) % [place] % (Auto) (5.3-12.2) % Eos % (Auto) (0.8-7.0) Baso % (Auto) (0.1-1.2) % Neut # (Auto) (1.78-5.38) K/mm3 Lymph # (Auto) (1.32-3.57) K/mm3 [place] # (Auto) (0.30-0.82) K/mm3 Eos # (Auto) (0.04-0.54) K/mm3 Baso # (Auto) (0.01-0.08) K/mm3 Neutrophils % (Manual) (40-60) % Band Neutrophils % (0-10) % Lymphocytes % (Manual) (20-40) % Atypical Lymphs % % Monocytes % (Manual) (2-10) % Eosinophils % (Manual) (0.8-7.0) % Basophils % (Manual) (0.2-1.2) Toxic Granulation Platelet Estimate Plt Morphology Comment RBC Morph Comment ESR 34 H (0-15) mm/hr PT (9.7-12.0) SECONDS INR APTT (21.7-31.4) SECONDS D-Dimer, Quantitative (0.19-0.50) mg/L Sodium 137 (136-145) mEq/L Potassium 4.3 (3.5-5.1) mEq/L Chloride 102 (98-107) mEq/L Carbon Dioxide 27 (21-32) mEq/L Anion Gap 12.3 (5-15) BUN 23 H (7-18) mg/dL Creatinine 1.6 H (0.7-1.3) mg/dL Est Cr Clr Drug Dosing 31.30 mL/min Estimated GFR (MDRD) 41 (>60) mL/min BUN/Creatinine Ratio 14.4 (14-18) Glucose 131 H (70-99) mg/dL Hemoglobin A1c ( - 5.6) % Calcium 7.6 L (8.5-10.1) mg/dL Magnesium 2.4 (1.8-2.4) mg/dL Total Bilirubin 0.9 (0.2-1.0) mg/dL AST 96 H (15-37) U/L ALT 72 H (16-63) U/L Alkaline Phosphatase 108 (46-116) U/L Lactate Dehydrogenase (85-227) U/L Troponin I 0.028 (0.00-0.056) ng/mL C-Reactive Protein 5.5 H* (<1.0) mg/dL NT-Pro-B Natriuret Pep 408 (0-450) pg/mL Total Protein 6.7 (6.4-8.2) g/dl Albumin 2.8 L (3.4-5.0) g/dl Globulin 3.9 gm/dL Albumin/Globulin Ratio 0.7 L (1-2) Procalcitonin ng/mL Urine Color (Yellow) Urine Appearance (Clear) Urine pH (5.0-8.0) Ur Specific [place] (1.005-1.030) Urine Protein (Negative) Urine Glucose (UA) (Negative) Urine Ketones (Negative) Urine Occult Blood (Negative) Urine Nitrite (Negative) Urine Bilirubin (Negative) Urine Urobilinogen (0.2-1.0) Ur Leukocyte Esterase (Negative) Urine RBC (0-5) /hpf Urine WBC (0-5) /hpf Ur Epithelial Cells (0-5) /hpf Urine Bacteria (FEW) /hpf Urine Mucus (FEW) /hpf SARS-CoV-2 RNA (REMA) (NEGATIVE) 05/10/21 05/10/21 05/10/21 Range/Units 18:14 18:14 18:14 WBC (4.23-9.07) K/mm3 RBC (4.63-6.08) M/mm3 Hgb (13.7-17.5) gm/dl Hct (40.1-51.0) % MCV (79.0-92.2) fl MCH (25.7-32.2) pg MCHC (32.2-35.5) g/dl RDW Std Deviation (35.1-43.9) fL Plt Count (163-337) K/mm3 MPV (9.4-12.3) fl Neut % (Auto) (34.0-67.9) % Lymph % (Auto) (21.8-53.1) % [place] % (Auto) (5.3-12.2) % Eos % (Auto) (0.8-7.0) Baso % (Auto) (0.1-1.2) % Neut # (Auto) (1.78-5.38) K/mm3 Lymph # (Auto) (1.32-3.57) K/mm3 [place] # (Auto) (0.30-0.82) K/mm3 Eos # (Auto) (0.04-0.54) K/mm3 Baso # (Auto) (0.01-0.08) K/mm3 Neutrophils % (Manual) (40-60) % Band Neutrophils % (0-10) % Lymphocytes % (Manual) (20-40) % Atypical Lymphs % % Monocytes % (Manual) (2-10) % Eosinophils % (Manual) (0.8-7.0) % Basophils % (Manual) (0.2-1.2) Toxic Granulation Platelet Estimate Plt Morphology Comment RBC Morph Comment ESR (0-15) mm/hr PT (9.7-12.0) SECONDS INR APTT (21.7-31.4) SECONDS D-Dimer, Quantitative 1.62 H (0.19-0.50) mg/L Sodium (136-145) mEq/L Potassium (3.5-5.1) mEq/L Chloride (98-107) mEq/L Carbon Dioxide (21-32) mEq/L Anion Gap (5-15) BUN (7-18) mg/dL Creatinine (0.7-1.3) mg/dL Est Cr Clr Drug Dosing mL/min Estimated GFR (MDRD) (>60) mL/min BUN/Creatinine Ratio (14-18) Glucose (70-99) mg/dL Hemoglobin A1c ( - 5.6) % Calcium (8.5-10.1) mg/dL Magnesium (1.8-2.4) mg/dL Total Bilirubin (0.2-1.0) mg/dL AST (15-37) U/L ALT (16-63) U/L Alkaline Phosphatase (46-116) U/L Lactate Dehydrogenase 475 H (85-227) U/L Troponin I (0.00-0.056) ng/mL C-Reactive Protein (<1.0) mg/dL NT-Pro-B Natriuret Pep (0-450) pg/mL Total Protein (6.4-8.2) g/dl Albumin (3.4-5.0) g/dl Globulin gm/dL Albumin/Globulin Ratio (1-2) Procalcitonin 0.22 H ng/mL Urine Color (Yellow) Urine Appearance (Clear) Urine pH (5.0-8.0) Ur Specific [place] (1.005-1.030) Urine Protein (Negative) Urine Glucose (UA) (Negative) Urine Ketones (Negative) Urine Occult Blood (Negative) Urine Nitrite (Negative) Urine Bilirubin (Negative) Urine Urobilinogen (0.2-1.0) Ur Leukocyte Esterase (Negative) Urine RBC (0-5) /hpf Urine WBC (0-5) /hpf Ur Epithelial Cells (0-5) /hpf Urine Bacteria (FEW) /hpf Urine Mucus (FEW) /hpf SARS-CoV-2 RNA (REMA) (NEGATIVE) 05/10/21 05/10/21 05/11/21 Range/Units 19:35 20:53 06:17 WBC 3.33 L (4.23-9.07) K/mm3 RBC 4.53 L (4.63-6.08) M/mm3 Hgb 13.6 L (13.7-17.5) gm/dl Hct 40.6 (40.1-51.0) % MCV 89.6 (79.0-92.2) fl MCH 30.0 (25.7-32.2) pg MCHC 33.5 (32.2-35.5) g/dl RDW Std Deviation 48.5 H (35.1-43.9) fL Plt Count 116 L (163-337) K/mm3 MPV 10.7 (9.4-12.3) fl Neut % (Auto) 70.9 H (34.0-67.9) % Lymph % (Auto) 21.0 L (21.8-53.1) % [place] % (Auto) 6.6 (5.3-12.2) % Eos % (Auto) 0 L (0.8-7.0) Baso % (Auto) 0.3 (0.1-1.2) % Neut # (Auto) 2.36 (1.78-5.38) K/mm3 Lymph # (Auto) 0.70 L (1.32-3.57) K/mm3 [place] # (Auto) 0.22 L (0.30-0.82) K/mm3 Eos # (Auto) 0.00 L (0.04-0.54) K/mm3 Baso # (Auto) 0.01 (0.01-0.08) K/mm3 Neutrophils % (Manual) (40-60) % Band Neutrophils % (0-10) % Lymphocytes % (Manual) (20-40) % Atypical Lymphs % % Monocytes % (Manual) (2-10) % Eosinophils % (Manual) (0.8-7.0) % Basophils % (Manual) (0.2-1.2) Toxic Granulation Platelet Estimate Plt Morphology Comment RBC Morph Comment ESR (0-15) mm/hr PT (9.7-12.0) SECONDS INR APTT (21.7-31.4) SECONDS D-Dimer, Quantitative (0.19-0.50) mg/L Sodium 139 (136-145) mEq/L Potassium 4.9 (3.5-5.1) mEq/L Chloride 105 (98-107) mEq/L Carbon Dioxide 24 (21-32) mEq/L Anion Gap 14.9 (5-15) BUN 18 (7-18) mg/dL Creatinine 1.4 H (0.7-1.3) mg/dL Est Cr Clr Drug Dosing 35.77 mL/min Estimated GFR (MDRD) 48 (>60) mL/min BUN/Creatinine Ratio 12.9 L (14-18) Glucose 273 H (70-99) mg/dL Hemoglobin A1c ( - 5.6) % Calcium 7.3 L (8.5-10.1) mg/dL Magnesium (1.8-2.4) mg/dL Total Bilirubin 0.8 (0.2-1.0) mg/dL AST 95 H (15-37) U/L ALT 74 H (16-63) U/L Alkaline Phosphatase 116 (46-116) U/L Lactate Dehydrogenase (85-227) U/L Troponin I (0.00-0.056) ng/mL C-Reactive Protein 6.3 H* (<1.0) mg/dL NT-Pro-B Natriuret Pep (0-450) pg/mL Total Protein 6.1 L (6.4-8.2) g/dl Albumin 2.4 L (3.4-5.0) g/dl Globulin 3.7 gm/dL Albumin/Globulin Ratio 0.7 L (1-2) Procalcitonin ng/mL Urine Color Yellow (Yellow) Urine Appearance Slt cloudy H (Clear) Urine pH 6.0 (5.0-8.0) Ur Specific [place] 1.025 (1.005-1.030) Urine Protein 2+ H (Negative) Urine Glucose (UA) Trace H (Negative) Urine Ketones Negative (Negative) Urine Occult Blood 1+ H (Negative) Urine Nitrite Negative (Negative) Urine Bilirubin Negative (Negative) Urine Urobilinogen 0.2 (0.2-1.0) Ur Leukocyte Esterase Negative (Negative) Urine RBC Not seen (0-5) /hpf Urine WBC 0-5 (0-5) /hpf Ur Epithelial Cells 0-5 (0-5) /hpf Urine Bacteria Moderate H (FEW) /hpf Urine Mucus Not seen (FEW) /hpf SARS-CoV-2 RNA (REMA) (NEGATIVE) 05/11/21 Range/Units 06:17 WBC (4.23-9.07) K/mm3 RBC (4.63-6.08) M/mm3 Hgb (13.7-17.5) gm/dl Hct (40.1-51.0) % MCV (79.0-92.2) fl MCH (25.7-32.2) pg MCHC (32.2-35.5) g/dl RDW Std Deviation (35.1-43.9) fL Plt Count (163-337) K/mm3 MPV (9.4-12.3) fl Neut % (Auto) (34.0-67.9) % Lymph % (Auto) (21.8-53.1) % [place] % (Auto) (5.3-12.2) % Eos % (Auto) (0.8-7.0) Baso % (Auto) (0.1-1.2) % Neut # (Auto) (1.78-5.38) K/mm3 Lymph # (Auto) (1.32-3.57) K/mm3 [place] # (Auto) (0.30-0.82) K/mm3 Eos # (Auto) (0.04-0.54) K/mm3 Baso # (Auto) (0.01-0.08) K/mm3 Neutrophils % (Manual) (40-60) % Band Neutrophils % (0-10) % Lymphocytes % (Manual) (20-40) % Atypical Lymphs % % Monocytes % (Manual) (2-10) % Eosinophils % (Manual) (0.8-7.0) % Basophils % (Manual) (0.2-1.2) Toxic Granulation Platelet Estimate Plt Morphology Comment RBC Morph Comment ESR (0-15) mm/hr PT (9.7-12.0) SECONDS INR APTT (21.7-31.4) SECONDS D-Dimer, Quantitative (0.19-0.50) mg/L Sodium (136-145) mEq/L Potassium (3.5-5.1) mEq/L Chloride (98-107) mEq/L Carbon Dioxide (21-32) mEq/L Anion Gap (5-15) BUN (7-18) mg/dL Creatinine (0.7-1.3) mg/dL Est Cr Clr Drug Dosing mL/min Estimated GFR (MDRD) (>60) mL/min BUN/Creatinine Ratio (14-18) Glucose (70-99) mg/dL Hemoglobin A1c 6.8 H ( - 5.6) % Calcium (8.5-10.1) mg/dL Magnesium (1.8-2.4) mg/dL Total Bilirubin (0.2-1.0) mg/dL AST (15-37) U/L ALT (16-63) U/L Alkaline Phosphatase (46-116) U/L Lactate Dehydrogenase (85-227) U/L Troponin I (0.00-0.056) ng/mL C-Reactive Protein (<1.0) mg/dL NT-Pro-B Natriuret Pep (0-450) pg/mL Total Protein (6.4-8.2) g/dl Albumin (3.4-5.0) g/dl Globulin gm/dL Albumin/Globulin Ratio (1-2) Procalcitonin ng/mL Urine Color (Yellow) Urine Appearance (Clear) Urine pH (5.0-8.0) Ur Specific [place] (1.005-1.030) Urine Protein (Negative) Urine Glucose (UA) (Negative) Urine Ketones (Negative) Urine Occult Blood (Negative) Urine Nitrite (Negative) Urine Bilirubin (Negative) Urine Urobilinogen (0.2-1.0) Ur Leukocyte Esterase (Negative) Urine RBC (0-5) /hpf Urine WBC (0-5) /hpf Ur Epithelial Cells (0-5) /hpf Urine Bacteria (FEW) /hpf Urine Mucus (FEW) /hpf SARS-CoV-2 RNA (REMA) (NEGATIVE) Med Orders - Current: Current Medications Acetaminophen (Acetaminophen 325 Mg Tab) 650 mg PO Q4H PRN PRN Reason: Fever Greater Than 101 Albuterol (Albuterol 6.7 Gm Inhaler) 0 gm INH Q2H PRN PRN Reason: SOB/Wheezing Albuterol/Ipratropium (Albuterol/Ipratropium 3.0-0.5 Mg/3 Ml Neb Soln) 3 ml NEB QIDRT PRN PRN Reason: wheezing/SOB/cough Ascorbic Acid (Ascorbic Acid 500 Mg Tab) 500 mg PO BID ON LICENSE OF [facility] Last Admin: 05/11/21 08:00 Dose: 500 mg Documented by: Dexamethasone (Dexamethasone 4 Mg Tab) 6 mg PO DAILY@1999 ON LICENSE OF [facility] Stop: 05/19/21 20:01 Docusate Sodium (Docusate Sodium 100 Mg Cap) 100 mg PO BID PRN PRN Reason: Constipation Last Admin: 05/10/21 21:08 Dose: 100 mg Documented by: Guaifenesin/Phenylephrine HCl (Guaifenesin/Dextromethorphan 100-10 Mg/5 Ml Soln 5 Ml Cup) 10 ml PO Q4H PRN PRN Reason: Cough Last Admin: 05/11/21 12:13 Dose: 10 ml Documented by: Heparin Sodium (Porcine) (Heparin Sodium 5,000 Units/Ml Vial) 5,000 units SUBCUT Q8H ON LICENSE OF [facility] Last Admin: 05/11/21 11:44 Dose: 5,000 units Documented by: Remdesivir 100 mg/ Sodium (Chloride) 100 mls @ 100 mls/hr IV Q24H ON LICENSE OF [facility] Stop: 05/14/21 20:59 Insulin Human Lispro (Insulin Lispro 100 Unit/Ml 10 Ml Vial) 0 unit SUBCUT QIDACANDBED ON LICENSE OF [facility]; Protocol Ondansetron HCl (Ondansetron 4 Mg Tab.Dis) 4 mg PO Q4H PRN PRN Reason: nausea, able to take PO Ondansetron HCl (Ondansetron 4 Mg/2 Ml Sdv) 4 mg IV Q4H PRN PRN Reason: Nausea/Vomiting Sodium Chloride (Sodium Chloride 0.9% 10 Ml Syringe) 10 ml FLUSH ASDIRECTED PRN PRN Reason: Keep Vein Open Zinc Sulfate (Zinc Sulfate 220 Mg Cap) 220 mg PO DAILY ON LICENSE OF [facility] Last Admin: 05/11/21 08:00 Dose: 220 mg Documented by: Discontinued Medications Acetaminophen (Acetaminophen 325 Mg Tab) 650 mg PO ONETIME ONE Stop: 05/10/21 17:58 Last Admin: 05/10/21 18:10 Dose: 650 mg Documented by: Dexamethasone (Dexamethasone 4 Mg Tab) 6 mg PO DAILY CARLOS A Stop: 05/19/21 09:01 Last Admin: 05/10/21 21:10 Dose: 6 mg Documented by: Dextrose/Sodium Chloride (Dextrose 5%-Normal Saline) 1,000 mls @ 500 mls/hr IV ASDIRECTED CARLOS A Last Admin: 05/10/21 18:10 Dose: 500 mls/hr Documented by: Dextrose/Sodium Chloride (Dextrose 5%-Normal Saline) 1,000 mls @ 150 mls/hr IV ASDIRECTED CARLOS A Last Infusion: 05/11/21 05:40 Dose: 0 mls/hr Documented by: Remdesivir 200 mg/ Sodium (Chloride) 250 mls @ 250 mls/hr IV ONETIME ONE Stop: 05/10/21 20:03 Last Admin: 05/10/21 22:18 Dose: 250 mls/hr Documented by: - Patient Data Lab Results Last 24 hrs: Laboratory Results - last 24 hr 05/10/21 05/10/21 05/10/21 Range/Units 17:15 18:14 18:14 WBC 3.63 L (4.23-9.07) K/mm3 RBC 4.87 (4.63-6.08) M/mm3 Hgb 14.6 (13.7-17.5) gm/dl Hct 43.5 (40.1-51.0) % MCV 89.3 D (79.0-92.2) fl MCH 30.0 (25.7-32.2) pg MCHC 33.6 (32.2-35.5) g/dl RDW Std Deviation 49.0 H (35.1-43.9) fL Plt Count 131 L (163-337) K/mm3 MPV 10.8 (9.4-12.3) fl Neut % (Auto) (34.0-67.9) % Lymph % (Auto) (21.8-53.1) % [place] % (Auto) (5.3-12.2) % Eos % (Auto) (0.8-7.0) Baso % (Auto) (0.1-1.2) % Neut # (Auto) (1.78-5.38) K/mm3 Lymph # (Auto) (1.32-3.57) K/mm3 [place] # (Auto) (0.30-0.82) K/mm3 Eos # (Auto) (0.04-0.54) K/mm3 Baso # (Auto) (0.01-0.08) K/mm3 Neutrophils % (Manual) 77 H (40-60) % Band Neutrophils % 0 (0-10) % Lymphocytes % (Manual) 17 L (20-40) % Atypical Lymphs % 0 % Monocytes % (Manual) 6 (2-10) % Eosinophils % (Manual) 0 L (0.8-7.0) % Basophils % (Manual) 0 L (0.2-1.2) Toxic Granulation Few Platelet Estimate Decreased Plt Morphology Comment See note RBC Morph Comment Normal ESR (0-15) mm/hr PT 10.8 (9.7-12.0) SECONDS INR 1.01 APTT 31.3 (21.7-31.4) SECONDS D-Dimer, Quantitative (0.19-0.50) mg/L Sodium (136-145) mEq/L Potassium (3.5-5.1) mEq/L Chloride (98-107) mEq/L Carbon Dioxide (21-32) mEq/L Anion Gap (5-15) BUN (7-18) mg/dL Creatinine (0.7-1.3) mg/dL Est Cr Clr Drug Dosing mL/min Estimated GFR (MDRD) (>60) mL/min BUN/Creatinine Ratio (14-18) Glucose (70-99) mg/dL Hemoglobin A1c ( - 5.6) % Calcium (8.5-10.1) mg/dL Magnesium (1.8-2.4) mg/dL Total Bilirubin (0.2-1.0) mg/dL AST (15-37) U/L ALT (16-63) U/L Alkaline Phosphatase (46-116) U/L Lactate Dehydrogenase (85-227) U/L Troponin I (0.00-0.056) ng/mL C-Reactive Protein (<1.0) mg/dL NT-Pro-B Natriuret Pep (0-450) pg/mL Total Protein (6.4-8.2) g/dl Albumin (3.4-5.0) g/dl Globulin gm/dL Albumin/Globulin Ratio (1-2) Procalcitonin ng/mL Urine Color (Yellow) Urine Appearance (Clear) Urine pH (5.0-8.0) Ur Specific [place] (1.005-1.030) Urine Protein (Negative) Urine Glucose (UA) (Negative) Urine Ketones (Negative) Urine Occult Blood (Negative) Urine Nitrite (Negative) Urine Bilirubin (Negative) Urine Urobilinogen (0.2-1.0) Ur Leukocyte Esterase (Negative) Urine RBC (0-5) /hpf Urine WBC (0-5) /hpf Ur Epithelial Cells (0-5) /hpf Urine Bacteria (FEW) /hpf Urine Mucus (FEW) /hpf SARS-CoV-2 RNA (REMA) Positive H (NEGATIVE) 05/10/21 05/10/21 05/10/21 Range/Units 18:14 18:14 18:14 WBC (4.23-9.07) K/mm3 RBC (4.63-6.08) M/mm3 Hgb (13.7-17.5) gm/dl Hct (40.1-51.0) % MCV (79.0-92.2) fl MCH (25.7-32.2) pg MCHC (32.2-35.5) g/dl RDW Std Deviation (35.1-43.9) fL Plt Count (163-337) K/mm3 MPV (9.4-12.3) fl Neut % (Auto) (34.0-67.9) % Lymph % (Auto) (21.8-53.1) % [place] % (Auto) (5.3-12.2) % Eos % (Auto) (0.8-7.0) Baso % (Auto) (0.1-1.2) % Neut # (Auto) (1.78-5.38) K/mm3 Lymph # (Auto) (1.32-3.57) K/mm3 [place] # (Auto) (0.30-0.82) K/mm3 Eos # (Auto) (0.04-0.54) K/mm3 Baso # (Auto) (0.01-0.08) K/mm3 Neutrophils % (Manual) (40-60) % Band Neutrophils % (0-10) % Lymphocytes % (Manual) (20-40) % Atypical Lymphs % % Monocytes % (Manual) (2-10) % Eosinophils % (Manual) (0.8-7.0) % Basophils % (Manual) (0.2-1.2) Toxic Granulation Platelet Estimate Plt Morphology Comment RBC Morph Comment ESR 34 H (0-15) mm/hr PT (9.7-12.0) SECONDS INR APTT (21.7-31.4) SECONDS D-Dimer, Quantitative (0.19-0.50) mg/L Sodium 137 (136-145) mEq/L Potassium 4.3 (3.5-5.1) mEq/L Chloride 102 (98-107) mEq/L Carbon Dioxide 27 (21-32) mEq/L Anion Gap 12.3 (5-15) BUN 23 H (7-18) mg/dL Creatinine 1.6 H (0.7-1.3) mg/dL Est Cr Clr Drug Dosing 31.30 mL/min Estimated GFR (MDRD) 41 (>60) mL/min BUN/Creatinine Ratio 14.4 (14-18) Glucose 131 H (70-99) mg/dL Hemoglobin A1c ( - 5.6) % Calcium 7.6 L (8.5-10.1) mg/dL Magnesium 2.4 (1.8-2.4) mg/dL Total Bilirubin 0.9 (0.2-1.0) mg/dL AST 96 H (15-37) U/L ALT 72 H (16-63) U/L Alkaline Phosphatase 108 (46-116) U/L Lactate Dehydrogenase (85-227) U/L Troponin I 0.028 (0.00-0.056) ng/mL C-Reactive Protein 5.5 H* (<1.0) mg/dL NT-Pro-B Natriuret Pep 408 (0-450) pg/mL Total Protein 6.7 (6.4-8.2) g/dl Albumin 2.8 L (3.4-5.0) g/dl Globulin 3.9 gm/dL Albumin/Globulin Ratio 0.7 L (1-2) Procalcitonin ng/mL Urine Color (Yellow) Urine Appearance (Clear) Urine pH (5.0-8.0) Ur Specific [place] (1.005-1.030) Urine Protein (Negative) Urine Glucose (UA) (Negative) Urine Ketones (Negative) Urine Occult Blood (Negative) Urine Nitrite (Negative) Urine Bilirubin (Negative) Urine Urobilinogen (0.2-1.0) Ur Leukocyte Esterase (Negative) Urine RBC (0-5) /hpf Urine WBC (0-5) /hpf Ur Epithelial Cells (0-5) /hpf Urine Bacteria (FEW) /hpf Urine Mucus (FEW) /hpf SARS-CoV-2 RNA (REMA) (NEGATIVE) 05/10/21 05/10/21 05/10/21 Range/Units 18:14 18:14 18:14 WBC (4.23-9.07) K/mm3 RBC (4.63-6.08) M/mm3 Hgb (13.7-17.5) gm/dl Hct (40.1-51.0) % MCV (79.0-92.2) fl MCH (25.7-32.2) pg MCHC (32.2-35.5) g/dl RDW Std Deviation (35.1-43.9) fL Plt Count (163-337) K/mm3 MPV (9.4-12.3) fl Neut % (Auto) (34.0-67.9) % Lymph % (Auto) (21.8-53.1) % [place] % (Auto) (5.3-12.2) % Eos % (Auto) (0.8-7.0) Baso % (Auto) (0.1-1.2) % Neut # (Auto) (1.78-5.38) K/mm3 Lymph # (Auto) (1.32-3.57) K/mm3 [place] # (Auto) (0.30-0.82) K/mm3 Eos # (Auto) (0.04-0.54) K/mm3 Baso # (Auto) (0.01-0.08) K/mm3 Neutrophils % (Manual) (40-60) % Band Neutrophils % (0-10) % Lymphocytes % (Manual) (20-40) % Atypical Lymphs % % Monocytes % (Manual) (2-10) % Eosinophils % (Manual) (0.8-7.0) % Basophils % (Manual) (0.2-1.2) Toxic Granulation Platelet Estimate Plt Morphology Comment RBC Morph Comment ESR (0-15) mm/hr PT (9.7-12.0) SECONDS INR APTT (21.7-31.4) SECONDS D-Dimer, Quantitative 1.62 H (0.19-0.50) mg/L Sodium (136-145) mEq/L Potassium (3.5-5.1) mEq/L Chloride (98-107) mEq/L Carbon Dioxide (21-32) mEq/L Anion Gap (5-15) BUN (7-18) mg/dL Creatinine (0.7-1.3) mg/dL Est Cr Clr Drug Dosing mL/min Estimated GFR (MDRD) (>60) mL/min BUN/Creatinine Ratio (14-18) Glucose (70-99) mg/dL Hemoglobin A1c ( - 5.6) % Calcium (8.5-10.1) mg/dL Magnesium (1.8-2.4) mg/dL Total Bilirubin (0.2-1.0) mg/dL AST (15-37) U/L ALT (16-63) U/L Alkaline Phosphatase (46-116) U/L Lactate Dehydrogenase 475 H (85-227) U/L Troponin I (0.00-0.056) ng/mL C-Reactive Protein (<1.0) mg/dL NT-Pro-B Natriuret Pep (0-450) pg/mL Total Protein (6.4-8.2) g/dl Albumin (3.4-5.0) g/dl Globulin gm/dL Albumin/Globulin Ratio (1-2) Procalcitonin 0.22 H ng/mL Urine Color (Yellow) Urine Appearance (Clear) Urine pH (5.0-8.0) Ur Specific [place] (1.005-1.030) Urine Protein (Negative) Urine Glucose (UA) (Negative) Urine Ketones (Negative) Urine Occult Blood (Negative) Urine Nitrite (Negative) Urine Bilirubin (Negative) Urine Urobilinogen (0.2-1.0) Ur Leukocyte Esterase (Negative) Urine RBC (0-5) /hpf Urine WBC (0-5) /hpf Ur Epithelial Cells (0-5) /hpf Urine Bacteria (FEW) /hpf Urine Mucus (FEW) /hpf SARS-CoV-2 RNA (REMA) (NEGATIVE) 05/10/21 05/10/21 05/11/21 Range/Units 19:35 20:53 06:17 WBC 3.33 L (4.23-9.07) K/mm3 RBC 4.53 L (4.63-6.08) M/mm3 Hgb 13.6 L (13.7-17.5) gm/dl Hct 40.6 (40.1-51.0) % MCV 89.6 (79.0-92.2) fl MCH 30.0 (25.7-32.2) pg MCHC 33.5 (32.2-35.5) g/dl RDW Std Deviation 48.5 H (35.1-43.9) fL Plt Count 116 L (163-337) K/mm3 MPV 10.7 (9.4-12.3) fl Neut % (Auto) 70.9 H (34.0-67.9) % Lymph % (Auto) 21.0 L (21.8-53.1) % [place] % (Auto) 6.6 (5.3-12.2) % Eos % (Auto) 0 L (0.8-7.0) Baso % (Auto) 0.3 (0.1-1.2) % Neut # (Auto) 2.36 (1.78-5.38) K/mm3 Lymph # (Auto) 0.70 L (1.32-3.57) K/mm3 [place] # (Auto) 0.22 L (0.30-0.82) K/mm3 Eos # (Auto) 0.00 L (0.04-0.54) K/mm3 Baso # (Auto) 0.01 (0.01-0.08) K/mm3 Neutrophils % (Manual) (40-60) % Band Neutrophils % (0-10) % Lymphocytes % (Manual) (20-40) % Atypical Lymphs % % Monocytes % (Manual) (2-10) % Eosinophils % (Manual) (0.8-7.0) % Basophils % (Manual) (0.2-1.2) Toxic Granulation Platelet Estimate Plt Morphology Comment RBC Morph Comment ESR (0-15) mm/hr PT (9.7-12.0) SECONDS INR APTT (21.7-31.4) SECONDS D-Dimer, Quantitative (0.19-0.50) mg/L Sodium 139 (136-145) mEq/L Potassium 4.9 (3.5-5.1) mEq/L Chloride 105 (98-107) mEq/L Carbon Dioxide 24 (21-32) mEq/L Anion Gap 14.9 (5-15) BUN 18 (7-18) mg/dL Creatinine 1.4 H (0.7-1.3) mg/dL Est Cr Clr Drug Dosing 35.77 mL/min Estimated GFR (MDRD) 48 (>60) mL/min BUN/Creatinine Ratio 12.9 L (14-18) Glucose 273 H (70-99) mg/dL Hemoglobin A1c ( - 5.6) % Calcium 7.3 L (8.5-10.1) mg/dL Magnesium (1.8-2.4) mg/dL Total Bilirubin 0.8 (0.2-1.0) mg/dL AST 95 H (15-37) U/L ALT 74 H (16-63) U/L Alkaline Phosphatase 116 (46-116) U/L Lactate Dehydrogenase (85-227) U/L Troponin I (0.00-0.056) ng/mL C-Reactive Protein 6.3 H* (<1.0) mg/dL NT-Pro-B Natriuret Pep (0-450) pg/mL Total Protein 6.1 L (6.4-8.2) g/dl Albumin 2.4 L (3.4-5.0) g/dl Globulin 3.7 gm/dL Albumin/Globulin Ratio 0.7 L (1-2) Procalcitonin ng/mL Urine Color Yellow (Yellow) Urine Appearance Slt cloudy H (Clear) Urine pH 6.0 (5.0-8.0) Ur Specific [place] 1.025 (1.005-1.030) Urine Protein 2+ H (Negative) Urine Glucose (UA) Trace H (Negative) Urine Ketones Negative (Negative) Urine Occult Blood 1+ H (Negative) Urine Nitrite Negative (Negative) Urine Bilirubin Negative (Negative) Urine Urobilinogen 0.2 (0.2-1.0) Ur Leukocyte Esterase Negative (Negative) Urine RBC Not seen (0-5) /hpf Urine WBC 0-5 (0-5) /hpf Ur Epithelial Cells 0-5 (0-5) /hpf Urine Bacteria Moderate H (FEW) /hpf Urine Mucus Not seen (FEW) /hpf SARS-CoV-2 RNA (REMA) (NEGATIVE) 05/11/21 Range/Units 06:17 WBC (4.23-9.07) K/mm3 RBC (4.63-6.08) M/mm3 Hgb (13.7-17.5) gm/dl Hct (40.1-51.0) % MCV (79.0-92.2) fl MCH (25.7-32.2) pg MCHC (32.2-35.5) g/dl RDW Std Deviation (35.1-43.9) fL Plt Count (163-337) K/mm3 MPV (9.4-12.3) fl Neut % (Auto) (34.0-67.9) % Lymph % (Auto) (21.8-53.1) % [place] % (Auto) (5.3-12.2) % Eos % (Auto) (0.8-7.0) Baso % (Auto) (0.1-1.2) % Neut # (Auto) (1.78-5.38) K/mm3 Lymph # (Auto) (1.32-3.57) K/mm3 [place] # (Auto) (0.30-0.82) K/mm3 Eos # (Auto) (0.04-0.54) K/mm3 Baso # (Auto) (0.01-0.08) K/mm3 Neutrophils % (Manual) (40-60) % Band Neutrophils % (0-10) % Lymphocytes % (Manual) (20-40) % Atypical Lymphs % % Monocytes % (Manual) (2-10) % Eosinophils % (Manual) (0.8-7.0) % Basophils % (Manual) (0.2-1.2) Toxic Granulation Platelet Estimate Plt Morphology Comment RBC Morph Comment ESR (0-15) mm/hr PT (9.7-12.0) SECONDS INR APTT (21.7-31.4) SECONDS D-Dimer, Quantitative (0.19-0.50) mg/L Sodium (136-145) mEq/L Potassium (3.5-5.1) mEq/L Chloride (98-107) mEq/L Carbon Dioxide (21-32) mEq/L Anion Gap (5-15) BUN (7-18) mg/dL Creatinine (0.7-1.3) mg/dL Est Cr Clr Drug Dosing mL/min Estimated GFR (MDRD) (>60) mL/min BUN/Creatinine Ratio (14-18) Glucose (70-99) mg/dL Hemoglobin A1c 6.8 H ( - 5.6) % Calcium (8.5-10.1) mg/dL Magnesium (1.8-2.4) mg/dL Total Bilirubin (0.2-1.0) mg/dL AST (15-37) U/L ALT (16-63) U/L Alkaline Phosphatase (46-116) U/L Lactate Dehydrogenase (85-227) U/L Troponin I (0.00-0.056) ng/mL C-Reactive Protein (<1.0) mg/dL NT-Pro-B Natriuret Pep (0-450) pg/mL Total Protein (6.4-8.2) g/dl Albumin (3.4-5.0) g/dl Globulin gm/dL Albumin/Globulin Ratio (1-2) Procalcitonin ng/mL Urine Color (Yellow) Urine Appearance (Clear) Urine pH (5.0-8.0) Ur Specific [place] (1.005-1.030) Urine Protein (Negative) Urine Glucose (UA) (Negative) Urine Ketones (Negative) Urine Occult Blood (Negative) Urine Nitrite (Negative) Urine Bilirubin (Negative) Urine Urobilinogen (0.2-1.0) Ur Leukocyte Esterase (Negative) Urine RBC (0-5) /hpf Urine WBC (0-5) /hpf Ur Epithelial Cells (0-5) /hpf Urine Bacteria (FEW) /hpf Urine Mucus (FEW) /hpf SARS-CoV-2 RNA (REMA) (NEGATIVE) Result Diagrams: 05/10/21 20:53 05/11/21 06:17 Sepsis Event Note - Focused Exam Vital Signs: Vital Signs Temp Pulse Pulse Resp BP Pulse Ox 05/11/21 11:14 97.9 F 87 20 142/60 H 95 05/11/21 07:22 98.1 F 75 16 139/47 L 97 05/11/21 03:59 75 95 05/11/21 03:47 98.2 F 22 H 137/48 L - My Orders Last 24 Hours: My Active Orders 05/10/21 19:57 Oxygen Therapy [RC] PRN Up With Assistance [RC] ASDIRECTED VTE/DVT Education [RC] DAILY Vital Signs [RC] Q4HR Respiratory Care Assess and Treatment [CONS] Routine Docusate Sodium [Colace] 100 mg PO BID PRN Ondansetron [Zofran ODT] 4 mg PO Q4H PRN Ondansetron [Zofran] 4 mg IV Q4H PRN Sodium Chloride 0.9% [Saline Flush] 10 ml FLUSH ASDIRECTED PRN Saline Lock Insert [OM.PC] Routine Resuscitation Status Routine 05/10/21 19:59 Pulse Oximetry [RC] CONTINUOUS 05/10/21 20:00 Heparin Sodium 5,000 units SUBCUT Q8H 05/10/21 20:02 Positioning, Patient [RC] ASDIRECTED RT Incentive Spirometry [RC] ASDIRECTED Acetaminophen [TylenoL] 650 mg PO Q4H PRN Isolation [COMM] Stat RT Acapella [RESPCARE] Routine 05/10/21 20:15 Zinc Sulfate [Zincate] 220 mg PO DAILY 05/10/21 21:00 Ascorbic Acid [Vitamin C] 500 mg PO BID 05/11/21 Lunch Regular Diet [DIET] 05/11/21 20:00 Remdesivir 100 mg Sodium Chloride 0.9% [Normal Saline] 100 ml IV Q24H dexAMETHasone 6 mg PO DAILY@1999 - Plan Plan:: Case discussed in full. Agree with evaluation, assessment and plan.
[2021-05-11] MEDS ORDERED: Albuterol 6.7 GM Inhaler INH PRN (10:24)
[2021-05-11] MEDS ORDERED: Albuterol/Ipratropium 3.0-0.5 MG/3 ML Neb Soln NEB PRN (10:58)
[2021-05-11 11:54] LABS: HEMOGLOBIN A1C 6.8 %
[2021-05-11] MEDS: guaiFENesin/Dextromethorphan 100-10 MG/5 ML Soln 5 ML Cup PO PRN ×2 (12:13→19:52)
[2021-05-11] MEDS: Insulin Lispro 100 UNIT/ML 10 ML Vial SUBCUT SCH ×2 (17:46→22:25)
[2021-05-11] MEDS: Dexamethasone 4 MG Tab PO SCH (19:52)
[2021-05-11] MEDS: REMDESIVIR 100 MG in Sodium Chloride 0.9% 100 ML IV SCH (19:52)
[2021-05-12] MEDS: Heparin Sodium 5,000 Units/ML Vial SUBCUT SCH ×3 (04:25→20:37)
[2021-05-12] MEDS: guaiFENesin/Dextromethorphan 100-10 MG/5 ML Soln 5 ML Cup PO PRN (04:45)
--- NOTE | 2021-05-12 07:04 | PCM.PN ---
- General Info Date of Service: 05/12/21 Admission Dx/Problem (Free Text): Admission Diagnosis/Problem Admission Diagnosis/Problem Pneumonia due to infectious organism Subjective Update: The patient is an 89-year-old gentleman who had been admitted to [facility] for COVID-19 pneumonia on May 10, 2021. The patient has been tolerating his diet but he says that it tastes poor. The patient also has pain that has been controlled. The patient has been on room air. He has no other complaints today. Functional Status: Reports: Pain Controlled, Tolerating Diet - Review of Systems General: Reports: No Symptoms HEENT: Reports: No Symptoms Pulmonary: Reports: No Symptoms Cardiovascular: Reports: No Symptoms Gastrointestinal: Reports: No Symptoms Genitourinary: Reports: No Symptoms Musculoskeletal: Reports: No Symptoms Skin: Reports: No Symptoms Neurological: Reports: No Symptoms Psychiatric: Reports: No Symptoms - Patient Data Vitals - Most Recent: Last Vital Signs Temp 36.8 C 05/12/21 02:57 Pulse 89 05/12/21 03:00 Resp 14 05/12/21 02:57 BP 141/68 H 05/12/21 02:57 Pulse Ox 94 L 05/12/21 06:50 Weight - Most Recent: 101.831 kg I&O - Last 24 Hours: Intake & Output 05/11/21 05/12/21 05/12/21 22:59 06:59 14:59 Intake Total 1040 400 Output Total 450 Balance 1040 -50 Lab Results Last 24 Hours: Laboratory Results - last 24 hr 05/10/21 05/11/21 05/11/21 Range/Units 18:14 06:17 06:17 WBC (4.23-9.07) K/mm3 RBC (4.63-6.08) M/mm3 Hgb (13.7-17.5) gm/dl Hct (40.1-51.0) % MCV (79.0-92.2) fl MCH (25.7-32.2) pg MCHC (32.2-35.5) g/dl RDW Std Deviation (35.1-43.9) fL Plt Count (163-337) K/mm3 MPV (9.4-12.3) fl Neut % (Auto) (34.0-67.9) % Lymph % (Auto) (21.8-53.1) % [place] % (Auto) (5.3-12.2) % Eos % (Auto) (0.8-7.0) Baso % (Auto) (0.1-1.2) % Neut # (Auto) (1.78-5.38) K/mm3 Lymph # (Auto) (1.32-3.57) K/mm3 [place] # (Auto) (0.30-0.82) K/mm3 Eos # (Auto) (0.04-0.54) K/mm3 Baso # (Auto) (0.01-0.08) K/mm3 Manual Slide Review D-Dimer, Quantitative (0.19-0.50) mg/L Sodium 139 (136-145) mEq/L Potassium 4.9 (3.5-5.1) mEq/L Chloride 105 (98-107) mEq/L Carbon Dioxide 24 (21-32) mEq/L Anion Gap 14.9 (5-15) BUN 18 (7-18) mg/dL Creatinine 1.4 H (0.7-1.3) mg/dL Est Cr Clr Drug Dosing 35.77 mL/min Estimated GFR (MDRD) 48 (>60) mL/min BUN/Creatinine Ratio 12.9 L (14-18) Glucose 273 H (70-99) mg/dL POC Glucose (70-99) mg/dL Hemoglobin A1c 6.8 H ( - 5.6) % Calcium 7.3 L (8.5-10.1) mg/dL Magnesium (1.8-2.4) mg/dL Total Bilirubin 0.8 (0.2-1.0) mg/dL AST 95 H (15-37) U/L ALT 74 H (16-63) U/L Alkaline Phosphatase 116 (46-116) U/L C-Reactive Protein 6.3 H* (<1.0) mg/dL Total Protein 6.1 L (6.4-8.2) g/dl Albumin 2.4 L (3.4-5.0) g/dl Globulin 3.7 gm/dL Albumin/Globulin Ratio 0.7 L (1-2) Procalcitonin 0.22 H ng/mL 05/11/21 05/11/21 05/12/21 Range/Units 16:37 21:41 05:15 WBC 4.81 (4.23-9.07) K/mm3 RBC 4.95 (4.63-6.08) M/mm3 Hgb 14.6 (13.7-17.5) gm/dl Hct 43.7 (40.1-51.0) % MCV 88.3 (79.0-92.2) fl MCH 29.5 (25.7-32.2) pg MCHC 33.4 (32.2-35.5) g/dl RDW Std Deviation 47.9 H (35.1-43.9) fL Plt Count 163 (163-337) K/mm3 MPV 11.2 (9.4-12.3) fl Neut % (Auto) 78.9 H (34.0-67.9) % Lymph % (Auto) 11.6 L (21.8-53.1) % [place] % (Auto) 7.7 (5.3-12.2) % Eos % (Auto) 0 L (0.8-7.0) Baso % (Auto) 0.6 (0.1-1.2) % Neut # (Auto) 3.79 (1.78-5.38) K/mm3 Lymph # (Auto) 0.56 L (1.32-3.57) K/mm3 [place] # (Auto) 0.37 (0.30-0.82) K/mm3 Eos # (Auto) 0.00 L (0.04-0.54) K/mm3 Baso # (Auto) 0.03 (0.01-0.08) K/mm3 Manual Slide Review Normal smear D-Dimer, Quantitative (0.19-0.50) mg/L Sodium (136-145) mEq/L Potassium (3.5-5.1) mEq/L Chloride (98-107) mEq/L Carbon Dioxide (21-32) mEq/L Anion Gap (5-15) BUN (7-18) mg/dL Creatinine (0.7-1.3) mg/dL Est Cr Clr Drug Dosing mL/min Estimated GFR (MDRD) (>60) mL/min BUN/Creatinine Ratio (14-18) Glucose (70-99) mg/dL POC Glucose 241 H 171 H (70-99) mg/dL Hemoglobin A1c ( - 5.6) % Calcium (8.5-10.1) mg/dL Magnesium (1.8-2.4) mg/dL Total Bilirubin (0.2-1.0) mg/dL AST (15-37) U/L ALT (16-63) U/L Alkaline Phosphatase (46-116) U/L C-Reactive Protein (<1.0) mg/dL Total Protein (6.4-8.2) g/dl Albumin (3.4-5.0) g/dl Globulin gm/dL Albumin/Globulin Ratio (1-2) Procalcitonin ng/mL 05/12/21 05/12/21 05/12/21 Range/Units 05:15 05:15 05:15 WBC (4.23-9.07) K/mm3 RBC (4.63-6.08) M/mm3 Hgb (13.7-17.5) gm/dl Hct (40.1-51.0) % MCV (79.0-92.2) fl MCH (25.7-32.2) pg MCHC (32.2-35.5) g/dl RDW Std Deviation (35.1-43.9) fL Plt Count (163-337) K/mm3 MPV (9.4-12.3) fl Neut % (Auto) (34.0-67.9) % Lymph % (Auto) (21.8-53.1) % [place] % (Auto) (5.3-12.2) % Eos % (Auto) (0.8-7.0) Baso % (Auto) (0.1-1.2) % Neut # (Auto) (1.78-5.38) K/mm3 Lymph # (Auto) (1.32-3.57) K/mm3 [place] # (Auto) (0.30-0.82) K/mm3 Eos # (Auto) (0.04-0.54) K/mm3 Baso # (Auto) (0.01-0.08) K/mm3 Manual Slide Review D-Dimer, Quantitative 1.21 H (0.19-0.50) mg/L Sodium 138 (136-145) mEq/L Potassium 4.5 (3.5-5.1) mEq/L Chloride 103 (98-107) mEq/L Carbon Dioxide 23 (21-32) mEq/L Anion Gap 16.5 H (5-15) BUN 22 H (7-18) mg/dL Creatinine 1.3 (0.7-1.3) mg/dL Est Cr Clr Drug Dosing 38.52 mL/min Estimated GFR (MDRD) 52 (>60) mL/min BUN/Creatinine Ratio 16.9 (14-18) Glucose 230 H (70-99) mg/dL POC Glucose 214 H (70-99) mg/dL Hemoglobin A1c ( - 5.6) % Calcium 7.7 L (8.5-10.1) mg/dL Magnesium 2.2 (1.8-2.4) mg/dL Total Bilirubin 0.7 (0.2-1.0) mg/dL AST 76 H (15-37) U/L ALT 73 H (16-63) U/L Alkaline Phosphatase 112 (46-116) U/L C-Reactive Protein 4.6 H* (<1.0) mg/dL Total Protein 6.2 L (6.4-8.2) g/dl Albumin 2.6 L (3.4-5.0) g/dl Globulin 3.6 gm/dL Albumin/Globulin Ratio 0.7 L (1-2) Procalcitonin ng/mL Med Orders - Current: Current Medications Acetaminophen (Acetaminophen 325 Mg Tab) 650 mg PO Q4H PRN PRN Reason: Fever Greater Than 101 Albuterol (Albuterol 6.7 Gm Inhaler) 0 gm INH Q2H PRN PRN Reason: SOB/Wheezing Albuterol/Ipratropium (Albuterol/Ipratropium 3.0-0.5 Mg/3 Ml Neb Soln) 3 ml NEB QIDRT PRN PRN Reason: wheezing/SOB/cough Ascorbic Acid (Ascorbic Acid 500 Mg Tab) 500 mg PO BID [facility] Last Admin: 05/11/21 22:26 Dose: 500 mg Documented by: Dexamethasone (Dexamethasone 4 Mg Tab) 6 mg PO DAILY@1999 [facility] Stop: 05/19/21 20:01 Last Admin: 05/11/21 19:52 Dose: 6 mg Documented by: Docusate Sodium (Docusate Sodium 100 Mg Cap) 100 mg PO BID PRN PRN Reason: Constipation Last Admin: 05/10/21 21:08 Dose: 100 mg Documented by: Guaifenesin/Phenylephrine HCl (Guaifenesin/Dextromethorphan 100-10 Mg/5 Ml Soln 5 Ml Cup) 10 ml PO Q4H PRN PRN Reason: Cough Last Admin: 05/12/21 04:45 Dose: 10 ml Documented by: Heparin Sodium (Porcine) (Heparin Sodium 5,000 Units/Ml Vial) 5,000 units SUBCUT Q8H [facility] Last Admin: 05/12/21 04:25 Dose: 5,000 units Documented by: Remdesivir 100 mg/ Sodium (Chloride) 100 mls @ 100 mls/hr IV Q24H [facility] Stop: 05/14/21 20:59 Last Admin: 05/11/21 19:52 Dose: 100 mls/hr Documented by: Insulin Human Lispro (Insulin Lispro 100 Unit/Ml 10 Ml Vial) 0 unit SUBCUT QIDACANDBED [facility]; Protocol Last Admin: 05/11/21 22:25 Dose: 1 units Documented by: Ondansetron HCl (Ondansetron 4 Mg Tab.Dis) 4 mg PO Q4H PRN PRN Reason: nausea, able to take PO Ondansetron HCl (Ondansetron 4 Mg/2 Ml Sdv) 4 mg IV Q4H PRN PRN Reason: Nausea/Vomiting Sodium Chloride (Sodium Chloride 0.9% 10 Ml Syringe) 10 ml FLUSH ASDIRECTED PRN PRN Reason: Keep Vein Open Zinc Sulfate (Zinc Sulfate 220 Mg Cap) 220 mg PO DAILY [facility] Last Admin: 05/11/21 08:00 Dose: 220 mg Documented by: Discontinued Medications Acetaminophen (Acetaminophen 325 Mg Tab) 650 mg PO ONETIME ONE Stop: 05/10/21 17:58 Last Admin: 05/10/21 18:10 Dose: 650 mg Documented by: Dexamethasone (Dexamethasone 4 Mg Tab) 6 mg PO DAILY [facility] Stop: 05/19/21 09:01 Last Admin: 05/10/21 21:10 Dose: 6 mg Documented by: Dextrose/Sodium Chloride (Dextrose 5%-Normal Saline) 1,000 mls @ 500 mls/hr IV ASDIRECTED [facility] Last Admin: 05/10/21 18:10 Dose: 500 mls/hr Documented by: Dextrose/Sodium Chloride (Dextrose 5%-Normal Saline) 1,000 mls @ 150 mls/hr IV ASDIRECTED CARLOS A Last Infusion: 05/11/21 05:40 Dose: 0 mls/hr Documented by: Remdesivir 200 mg/ Sodium (Chloride) 250 mls @ 250 mls/hr IV ONETIME ONE Stop: 05/10/21 20:03 Last Admin: 05/10/21 22:18 Dose: 250 mls/hr Documented by: - Exam Quality Assessment: DVT Prophylaxis. No: Supplemental Oxygen General: Alert, Oriented, Cooperative HEENT: Pupils Equal, Pupils Reactive, EOMI. No: Mucous Membr. Moist/[place] (Dry) Neck: Supple, Trachea Midline Lungs: Decreased Breath Sounds, Crackles Cardiovascular: Regular Rate, Regular Rhythm GI/Abdominal Exam: Normal Bowel Sounds, Soft, No Distention (Male) Exam: Deferred Back Exam: Normal Inspection, Full Range of Motion Extremities: Normal Inspection, Normal Range of Motion, No Pedal Edema Skin: Warm, Dry, Intact Neurological: No New Focal Deficit Psy/Mental Status: Alert, Normal Affect, Normal Mood - Patient Data Lab Results Last 24 hrs: Laboratory Results - last 24 hr 05/10/21 05/11/21 05/11/21 Range/Units 18:14 06:17 06:17 WBC (4.23-9.07) K/mm3 RBC (4.63-6.08) M/mm3 Hgb (13.7-17.5) gm/dl Hct (40.1-51.0) % MCV (79.0-92.2) fl MCH (25.7-32.2) pg MCHC (32.2-35.5) g/dl RDW Std Deviation (35.1-43.9) fL Plt Count (163-337) K/mm3 MPV (9.4-12.3) fl Neut % (Auto) (34.0-67.9) % Lymph % (Auto) (21.8-53.1) % [place] % (Auto) (5.3-12.2) % Eos % (Auto) (0.8-7.0) Baso % (Auto) (0.1-1.2) % Neut # (Auto) (1.78-5.38) K/mm3 Lymph # (Auto) (1.32-3.57) K/mm3 [place] # (Auto) (0.30-0.82) K/mm3 Eos # (Auto) (0.04-0.54) K/mm3 Baso # (Auto) (0.01-0.08) K/mm3 Manual Slide Review D-Dimer, Quantitative (0.19-0.50) mg/L Sodium 139 (136-145) mEq/L Potassium 4.9 (3.5-5.1) mEq/L Chloride 105 (98-107) mEq/L Carbon Dioxide 24 (21-32) mEq/L Anion Gap 14.9 (5-15) BUN 18 (7-18) mg/dL Creatinine 1.4 H (0.7-1.3) mg/dL Est Cr Clr Drug Dosing 35.77 mL/min Estimated GFR (MDRD) 48 (>60) mL/min BUN/Creatinine Ratio 12.9 L (14-18) Glucose 273 H (70-99) mg/dL POC Glucose (70-99) mg/dL Hemoglobin A1c 6.8 H ( - 5.6) % Calcium 7.3 L (8.5-10.1) mg/dL Magnesium (1.8-2.4) mg/dL Total Bilirubin 0.8 (0.2-1.0) mg/dL AST 95 H (15-37) U/L ALT 74 H (16-63) U/L Alkaline Phosphatase 116 (46-116) U/L C-Reactive Protein 6.3 H* (<1.0) mg/dL Total Protein 6.1 L (6.4-8.2) g/dl Albumin 2.4 L (3.4-5.0) g/dl Globulin 3.7 gm/dL Albumin/Globulin Ratio 0.7 L (1-2) Procalcitonin 0.22 H ng/mL 05/11/21 05/11/21 05/12/21 Range/Units 16:37 21:41 05:15 WBC 4.81 (4.23-9.07) K/mm3 RBC 4.95 (4.63-6.08) M/mm3 Hgb 14.6 (13.7-17.5) gm/dl Hct 43.7 (40.1-51.0) % MCV 88.3 (79.0-92.2) fl MCH 29.5 (25.7-32.2) pg MCHC 33.4 (32.2-35.5) g/dl RDW Std Deviation 47.9 H (35.1-43.9) fL Plt Count 163 (163-337) K/mm3 MPV 11.2 (9.4-12.3) fl Neut % (Auto) 78.9 H (34.0-67.9) % Lymph % (Auto) 11.6 L (21.8-53.1) % [place] % (Auto) 7.7 (5.3-12.2) % Eos % (Auto) 0 L (0.8-7.0) Baso % (Auto) 0.6 (0.1-1.2) % Neut # (Auto) 3.79 (1.78-5.38) K/mm3 Lymph # (Auto) 0.56 L (1.32-3.57) K/mm3 [place] # (Auto) 0.37 (0.30-0.82) K/mm3 Eos # (Auto) 0.00 L (0.04-0.54) K/mm3 Baso # (Auto) 0.03 (0.01-0.08) K/mm3 Manual Slide Review Normal smear D-Dimer, Quantitative (0.19-0.50) mg/L Sodium (136-145) mEq/L Potassium (3.5-5.1) mEq/L Chloride (98-107) mEq/L Carbon Dioxide (21-32) mEq/L Anion Gap (5-15) BUN (7-18) mg/dL Creatinine (0.7-1.3) mg/dL Est Cr Clr Drug Dosing mL/min Estimated GFR (MDRD) (>60) mL/min BUN/Creatinine Ratio (14-18) Glucose (70-99) mg/dL POC Glucose 241 H 171 H (70-99) mg/dL Hemoglobin A1c ( - 5.6) % Calcium (8.5-10.1) mg/dL Magnesium (1.8-2.4) mg/dL Total Bilirubin (0.2-1.0) mg/dL AST (15-37) U/L ALT (16-63) U/L Alkaline Phosphatase (46-116) U/L C-Reactive Protein (<1.0) mg/dL Total Protein (6.4-8.2) g/dl Albumin (3.4-5.0) g/dl Globulin gm/dL Albumin/Globulin Ratio (1-2) Procalcitonin ng/mL 05/12/21 05/12/21 05/12/21 Range/Units 05:15 05:15 05:15 WBC (4.23-9.07) K/mm3 RBC (4.63-6.08) M/mm3 Hgb (13.7-17.5) gm/dl Hct (40.1-51.0) % MCV (79.0-92.2) fl MCH (25.7-32.2) pg MCHC (32.2-35.5) g/dl RDW Std Deviation (35.1-43.9) fL Plt Count (163-337) K/mm3 MPV (9.4-12.3) fl Neut % (Auto) (34.0-67.9) % Lymph % (Auto) (21.8-53.1) % [place] % (Auto) (5.3-12.2) % Eos % (Auto) (0.8-7.0) Baso % (Auto) (0.1-1.2) % Neut # (Auto) (1.78-5.38) K/mm3 Lymph # (Auto) (1.32-3.57) K/mm3 Pickett # (Auto) (0.30-0.82) K/mm3 Eos # (Auto) (0.04-0.54) K/mm3 Baso # (Auto) (0.01-0.08) K/mm3 Manual Slide Review D-Dimer, Quantitative 1.21 H (0.19-0.50) mg/L Sodium 138 (136-145) mEq/L Potassium 4.5 (3.5-5.1) mEq/L Chloride 103 (98-107) mEq/L Carbon Dioxide 23 (21-32) mEq/L Anion Gap 16.5 H (5-15) BUN 22 H (7-18) mg/dL Creatinine 1.3 (0.7-1.3) mg/dL Est Cr Clr Drug Dosing 38.52 mL/min Estimated GFR (MDRD) 52 (>60) mL/min BUN/Creatinine Ratio 16.9 (14-18) Glucose 230 H (70-99) mg/dL POC Glucose 214 H (70-99) mg/dL Hemoglobin A1c ( - 5.6) % Calcium 7.7 L (8.5-10.1) mg/dL Magnesium 2.2 (1.8-2.4) mg/dL Total Bilirubin 0.7 (0.2-1.0) mg/dL AST 76 H (15-37) U/L ALT 73 H (16-63) U/L Alkaline Phosphatase 112 (46-116) U/L C-Reactive Protein 4.6 H* (<1.0) mg/dL Total Protein 6.2 L (6.4-8.2) g/dl Albumin 2.6 L (3.4-5.0) g/dl Globulin 3.6 gm/dL Albumin/Globulin Ratio 0.7 L (1-2) Procalcitonin ng/mL Result Diagrams: 05/12/21 05:15 05/12/21 05:15 Sepsis Event Note - Evaluation Sepsis Screening Result: No Definite Risk - Focused Exam Vital Signs: Vital Signs Temp Pulse Pulse Resp BP Pulse Ox Pulse Ox 05/12/21 06:50 94 L 05/12/21 03:00 89 94 L 05/12/21 02:57 36.8 C 14 141/68 H 05/11/21 19:51 36.7 C 84 14 120/90 97 05/11/21 19:31 96 - Problem List & Annotations (1) Pneumonia due to COVID-19 virus SNOMED Code(s): 664483008286101654 Code(s): U07.1 - COVID-19; J12.82 - PNEUMONIA DUE TO CORONAVIRUS DISEASE 2019 Status: Acute Priority: High Current Visit: Yes (2) Hyperglycemia SNOMED Code(s): 92189706 Code(s): R73.9 - HYPERGLYCEMIA, UNSPECIFIED Status: Acute Priority: Medium Current Visit: Yes (3) Elevated d-dimer SNOMED Code(s): 879233446 Code(s): R79.89 - OTHER SPECIFIED ABNORMAL FINDINGS OF BLOOD CHEMISTRY Status: Acute Priority: Medium Current Visit: Yes - Problem List Review Problem List Initiated/Reviewed/Updated: Yes - Assessment Assessment:: 05/11/2021 This is an 89-year-old male admitted to our hospital with COVID-19 pneumonia, weakness, and loss of appetite. He does have a history of BPH. He lives alone in [place]. He has not been hypoxic but is complaining of a productive cough. He does have I-S and Acapella. He was started on remdesivir and dexamethasone. He is also receiving zinc and vitamin C supplementation. Nursing reports the patient has been somewhat weak so we will order PT and OT. There are concerns with his appetite and if he has been able to receive appropriate meals a dietitian is consulted. RT is also consulted. Labs today show a sodium of 139. Potassium 4.9. Chloride 105. Carbon dioxide 24. Anion gap 14.9. BUN is 18. Creatinine 1.6. GFR 48. In reviewing prior labs does appear to be around his baseline. Glucose has been elevated at 273. Calcium 7.3. Total bilirubin 0.8. AST is 95, ALT 74, alkaline phosphatase 116. CRP is 6.3. Protein 6.1. Albumin 2.4. Given his elevated sugars, which were noted on prior visits, will check an A1c. We will recheck a D-dimer tomorrow along with CBC, CMP, CRP, and magnesium. He is on heparin for DVT prophylaxis. Continue current treatment plan. Unknown length of stay due to treatment for Covid pneumonia. 05/12/2021 The patient is an 89-year-old gentleman who has been admitted secondary to COVID-19 pneumonia. The patient says that he feels may be able to go home however patient has been weak and he currently lives by himself here in [facility]. He has been complaining of a cough as well as some nasal congestion. The patient has been offered medication for this but he says that it does not help him. Repeat laboratory studies have been ordered for the morning. He did have an elevated D-dimer and this will be repeated. I have also ordered chest x-ray for the morning. He will continue on his current diet as tolerated. The patient also has elevations of his glucose and he will be kept on high-dose sliding scale insulin. This is likely secondary to his steroid use. The patient should be appropriate for discharge in 1 to 2 days depending upon PT OT recommendations. - Plan Plan:: Case discussed in full. Agree with evaluation, assessment and plan.
[2021-05-12] MEDS: Insulin Lispro 100 UNIT/ML 10 ML Vial SUBCUT SCH ×4 (07:58→22:32)
[2021-05-12] MEDS: Ascorbic Acid 500 MG Tab PO SCH ×2 (07:59→20:31)
[2021-05-12] MEDS: Zinc Sulfate 220 MG Cap PO SCH (07:59)
[2021-05-12] MEDS ORDERED: Albuterol/Ipratropium 3.0-0.5 MG/3 ML Neb Soln NEB PRN (08:40)
[2021-05-12] MEDS ORDERED: Benzonatate 100 MG Cap PO PRN (08:42)
[2021-05-12] MEDS: Dexamethasone 4 MG Tab PO SCH (20:31)
[2021-05-12] MEDS: REMDESIVIR 100 MG in Sodium Chloride 0.9% 100 ML IV SCH (20:37)
[2021-05-13] MEDS: Heparin Sodium 5,000 Units/ML Vial SUBCUT SCH ×3 (04:03→20:19)
--- NOTE | 2021-05-13 08:39 | PCM.PN ---
- General Info Date of Service: 05/13/21 Admission Dx/Problem (Free Text): Admission Diagnosis/Problem Admission Diagnosis/Problem Pneumonia due to COVID-19 Subjective Update: The patient is an 89-year-old who was admitted on May 10, 2021 due to respiratory distress secondary to COVID-19. The patient today says that he is feeling a little better. His breathing is improved. He has been tolerating his diet. The patient also says the food has been tasting better. The patient also says that he coughed up a rather large mucus ball from his throat and he is b reathing better. Functional Status: Reports: Pain Controlled - Review of Systems General: Reports: Weakness, Fatigue HEENT: Reports: No Symptoms Pulmonary: Reports: Sputum Cardiovascular: Reports: No Symptoms Gastrointestinal: Reports: No Symptoms Genitourinary: Reports: No Symptoms Musculoskeletal: Reports: No Symptoms Skin: Reports: No Symptoms Neurological: Reports: No Symptoms Psychiatric: Reports: No Symptoms - Patient Data Vitals - Most Recent: Last Vital Signs Temp 36.6 C 05/13/21 08:12 Pulse 72 05/13/21 08:12 Resp 20 05/13/21 08:12 BP 122/86 05/13/21 08:12 Pulse Ox 96 05/13/21 06:50 Weight - Most Recent: 97.795 kg I&O - Last 24 Hours: Intake & Output 05/12/21 05/13/21 05/13/21 22:59 06:59 14:59 Intake Total 1380 800 Output Total 350 Balance 1030 800 Lab Results Last 24 Hours: Laboratory Results - last 24 hr 05/12/21 05/12/21 05/12/21 Range/Units 11:23 16:01 21:54 WBC (4.23-9.07) K/mm3 RBC (4.63-6.08) M/mm3 Hgb (13.7-17.5) gm/dl Hct (40.1-51.0) % MCV (79.0-92.2) fl MCH (25.7-32.2) pg MCHC (32.2-35.5) g/dl RDW Std Deviation (35.1-43.9) fL Plt Count (163-337) K/mm3 MPV (9.4-12.3) fl Neut % (Auto) (34.0-67.9) % Lymph % (Auto) (21.8-53.1) % [place] % (Auto) (5.3-12.2) % Eos % (Auto) (0.8-7.0) Baso % (Auto) (0.1-1.2) % Neut # (Auto) (1.78-5.38) K/mm3 Lymph # (Auto) (1.32-3.57) K/mm3 [place] # (Auto) (0.30-0.82) K/mm3 Eos # (Auto) (0.04-0.54) K/mm3 Baso # (Auto) (0.01-0.08) K/mm3 Manual Slide Review Sodium (136-145) mEq/L Potassium (3.5-5.1) mEq/L Chloride (98-107) mEq/L Carbon Dioxide (21-32) mEq/L Anion Gap (5-15) BUN (7-18) mg/dL Creatinine (0.7-1.3) mg/dL Est Cr Clr Drug Dosing mL/min Estimated GFR (MDRD) (>60) mL/min BUN/Creatinine Ratio (14-18) Glucose (70-99) mg/dL POC Glucose 278 H 205 H 260 H (70-99) mg/dL Calcium (8.5-10.1) mg/dL Magnesium (1.8-2.4) mg/dL Total Bilirubin (0.2-1.0) mg/dL AST (15-37) U/L ALT (16-63) U/L Alkaline Phosphatase (46-116) U/L C-Reactive Protein (<1.0) mg/dL Total Protein (6.4-8.2) g/dl Albumin (3.4-5.0) g/dl Globulin gm/dL Albumin/Globulin Ratio (1-2) 05/13/21 05/13/21 05/13/21 Range/Units 06:39 07:10 07:10 WBC 7.51 (4.23-9.07) K/mm3 RBC 4.99 (4.63-6.08) M/mm3 Hgb 15.0 (13.7-17.5) gm/dl Hct 44.1 (40.1-51.0) % MCV 88.4 (79.0-92.2) fl MCH 30.1 (25.7-32.2) pg MCHC 34.0 (32.2-35.5) g/dl RDW Std Deviation 47.8 H (35.1-43.9) fL Plt Count 211 (163-337) K/mm3 MPV 11.0 (9.4-12.3) fl Neut % (Auto) 84.2 H (34.0-67.9) % Lymph % (Auto) 8.7 L (21.8-53.1) % [place] % (Auto) 6.0 (5.3-12.2) % Eos % (Auto) 0 L (0.8-7.0) Baso % (Auto) 0.4 (0.1-1.2) % Neut # (Auto) 6.33 H (1.78-5.38) K/mm3 Lymph # (Auto) 0.65 L (1.32-3.57) K/mm3 [place] # (Auto) 0.45 (0.30-0.82) K/mm3 Eos # (Auto) 0.00 L (0.04-0.54) K/mm3 Baso # (Auto) 0.03 (0.01-0.08) K/mm3 Manual Slide Review Normal smear Sodium 137 (136-145) mEq/L Potassium 4.8 (3.5-5.1) mEq/L Chloride 106 (98-107) mEq/L Carbon Dioxide 22 (21-32) mEq/L Anion Gap 13.8 (5-15) BUN 26 H (7-18) mg/dL Creatinine 1.2 (0.7-1.3) mg/dL Est Cr Clr Drug Dosing 41.73 mL/min Estimated GFR (MDRD) 57 (>60) mL/min BUN/Creatinine Ratio 21.7 H (14-18) Glucose 238 H (70-99) mg/dL POC Glucose 232 H (70-99) mg/dL Calcium 7.8 L (8.5-10.1) mg/dL Magnesium 2.2 (1.8-2.4) mg/dL Total Bilirubin 0.6 (0.2-1.0) mg/dL AST 55 H (15-37) U/L ALT 70 H (16-63) U/L Alkaline Phosphatase 106 (46-116) U/L C-Reactive Protein 2.5 H* (<1.0) mg/dL Total Protein 6.3 L (6.4-8.2) g/dl Albumin 2.6 L (3.4-5.0) g/dl Globulin 3.7 gm/dL Albumin/Globulin Ratio 0.7 L (1-2) [place] Results Last 24 Hours: Microbiology 05/10/21 18:29 Blood Culture - Preliminary Blood - Venous - Lab Draw 05/10/21 18:14 Blood Culture - Preliminary Blood - Venous Med Orders - Current: Current Medications Acetaminophen (Acetaminophen 325 Mg Tab) 650 mg PO Q4H PRN PRN Reason: Fever Greater Than 101 Albuterol (Albuterol 6.7 Gm Inhaler) 0 gm INH Q2H PRN PRN Reason: SOB/Wheezing Albuterol/Ipratropium (Albuterol/Ipratropium 3.0-0.5 Mg/3 Ml Neb Soln) 3 ml NEB Q4HRRT PRN PRN Reason: Shortness of Breath Ascorbic Acid (Ascorbic Acid 500 Mg Tab) 500 mg PO BID [facility] Last Admin: 05/12/21 20:31 Dose: 500 mg Documented by: Benzonatate (Benzonatate 100 Mg Cap) 100 mg PO Q8H PRN PRN Reason: Cough Last Admin: 05/12/21 20:31 Dose: 100 mg Documented by: Dexamethasone (Dexamethasone 4 Mg Tab) 6 mg PO DAILY@1999 [facility] Stop: 05/19/21 20:01 Last Admin: 05/12/21 20:31 Dose: 6 mg Documented by: Docusate Sodium (Docusate Sodium 100 Mg Cap) 100 mg PO BID PRN PRN Reason: Constipation Last Admin: 05/10/21 21:08 Dose: 100 mg Documented by: Guaifenesin/Phenylephrine HCl (Guaifenesin/Dextromethorphan 100-10 Mg/5 Ml Soln 5 Ml Cup) 10 ml PO Q4H PRN PRN Reason: Cough Last Admin: 05/12/21 04:45 Dose: 10 ml Documented by: Heparin Sodium (Porcine) (Heparin Sodium 5,000 Units/Ml Vial) 5,000 units SUBCUT Q8H [facility] Last Admin: 05/13/21 04:03 Dose: 5,000 units Documented by: Remdesivir 100 mg/ Sodium (Chloride) 100 mls @ 100 mls/hr IV Q24H [facility] Stop: 05/14/21 20:59 Last Admin: 05/12/21 20:37 Dose: 100 mls/hr Documented by: Insulin Human Lispro (Insulin Lispro 100 Unit/Ml 10 Ml Vial) 0 unit SUBCUT QIDACANDBED [facility]; Protocol Last Admin: 05/12/21 22:32 Dose: 3 units Documented by: Ondansetron HCl (Ondansetron 4 Mg Tab.Dis) 4 mg PO Q4H PRN PRN Reason: nausea, able to take PO Ondansetron HCl (Ondansetron 4 Mg/2 Ml Sdv) 4 mg IV Q4H PRN PRN Reason: Nausea/Vomiting Sodium Chloride (Sodium Chloride 0.9% 10 Ml Syringe) 10 ml FLUSH ASDIRECTED PRN PRN Reason: Keep Vein Open Zinc Sulfate (Zinc Sulfate 220 Mg Cap) 220 mg PO DAILY [facility] Last Admin: 05/12/21 07:59 Dose: 220 mg Documented by: Discontinued Medications Acetaminophen (Acetaminophen 325 Mg Tab) 650 mg PO ONETIME ONE Stop: 05/10/21 17:58 Last Admin: 05/10/21 18:10 Dose: 650 mg Documented by: Albuterol/Ipratropium (Albuterol/Ipratropium 3.0-0.5 Mg/3 Ml Neb Soln) 3 ml NEB QIDRT PRN PRN Reason: wheezing/SOB/cough Last Admin: 05/12/21 09:21 Dose: 3 ml Documented by: Dexamethasone (Dexamethasone 4 Mg Tab) 6 mg PO DAILY [facility] Stop: 05/19/21 09:01 Last Admin: 05/10/21 21:10 Dose: 6 mg Documented by: Dextrose/Sodium Chloride (Dextrose 5%-Normal Saline) 1,000 mls @ 500 mls/hr IV ASDIRECTED [facility] Last Admin: 05/10/21 18:10 Dose: 500 mls/hr Documented by: Dextrose/Sodium Chloride (Dextrose 5%-Normal Saline) 1,000 mls @ 150 mls/hr IV ASDIRECTED [facility] Last Infusion: 05/11/21 05:40 Dose: 0 mls/hr Documented by: Remdesivir 200 mg/ Sodium (Chloride) 250 mls @ 250 mls/hr IV ONETIME ONE Stop: 05/10/21 20:03 Last Admin: 05/10/21 22:18 Dose: 250 mls/hr Documented by: - Exam Quality Assessment: DVT Prophylaxis. No: Supplemental Oxygen General: Alert, Oriented, Cooperative HEENT: Pupils Equal, Pupils Reactive, EOMI Neck: Supple, Trachea Midline Lungs: Clear to Auscultation, Normal Respiratory Effort Cardiovascular: Regular Rate, Regular Rhythm GI/Abdominal Exam: Normal Bowel Sounds, Soft, Non-Tender, No Distention (Male) Exam: Deferred Back Exam: Normal Inspection, Full Range of Motion Extremities: Normal Inspection, No Pedal Edema Skin: Warm, Dry, Intact Neurological: No New Focal Deficit. No: Normal Gait (Shuffling gait) Psy/Mental Status: Alert, Normal Affect, Normal Mood - Patient Data Lab Results Last 24 hrs: Laboratory Results - last 24 hr 05/12/21 05/12/21 05/12/21 Range/Units 11:23 16:01 21:54 WBC (4.23-9.07) K/mm3 RBC (4.63-6.08) M/mm3 Hgb (13.7-17.5) gm/dl Hct (40.1-51.0) % MCV (79.0-92.2) fl MCH (25.7-32.2) pg MCHC (32.2-35.5) g/dl RDW Std Deviation (35.1-43.9) fL Plt Count (163-337) K/mm3 MPV (9.4-12.3) fl Neut % (Auto) (34.0-67.9) % Lymph % (Auto) (21.8-53.1) % [place] % (Auto) (5.3-12.2) % Eos % (Auto) (0.8-7.0) Baso % (Auto) (0.1-1.2) % Neut # (Auto) (1.78-5.38) K/mm3 Lymph # (Auto) (1.32-3.57) K/mm3 [place] # (Auto) (0.30-0.82) K/mm3 Eos # (Auto) (0.04-0.54) K/mm3 Baso # (Auto) (0.01-0.08) K/mm3 Manual Slide Review Sodium (136-145) mEq/L Potassium (3.5-5.1) mEq/L Chloride (98-107) mEq/L Carbon Dioxide (21-32) mEq/L Anion Gap (5-15) BUN (7-18) mg/dL Creatinine (0.7-1.3) mg/dL Est Cr Clr Drug Dosing mL/min Estimated GFR (MDRD) (>60) mL/min BUN/Creatinine Ratio (14-18) Glucose (70-99) mg/dL POC Glucose 278 H 205 H 260 H (70-99) mg/dL Calcium (8.5-10.1) mg/dL Magnesium (1.8-2.4) mg/dL Total Bilirubin (0.2-1.0) mg/dL AST (15-37) U/L ALT (16-63) U/L Alkaline Phosphatase (46-116) U/L C-Reactive Protein (<1.0) mg/dL Total Protein (6.4-8.2) g/dl Albumin (3.4-5.0) g/dl Globulin gm/dL Albumin/Globulin Ratio (1-2) 05/13/21 05/13/21 05/13/21 Range/Units 06:39 07:10 07:10 WBC 7.51 (4.23-9.07) K/mm3 RBC 4.99 (4.63-6.08) M/mm3 Hgb 15.0 (13.7-17.5) gm/dl Hct 44.1 (40.1-51.0) % MCV 88.4 (79.0-92.2) fl MCH 30.1 (25.7-32.2) pg MCHC 34.0 (32.2-35.5) g/dl RDW Std Deviation 47.8 H (35.1-43.9) fL Plt Count 211 (163-337) K/mm3 MPV 11.0 (9.4-12.3) fl Neut % (Auto) 84.2 H (34.0-67.9) % Lymph % (Auto) 8.7 L (21.8-53.1) % [place] % (Auto) 6.0 (5.3-12.2) % Eos % (Auto) 0 L (0.8-7.0) Baso % (Auto) 0.4 (0.1-1.2) % Neut # (Auto) 6.33 H (1.78-5.38) K/mm3 Lymph # (Auto) 0.65 L (1.32-3.57) K/mm3 [place] # (Auto) 0.45 (0.30-0.82) K/mm3 Eos # (Auto) 0.00 L (0.04-0.54) K/mm3 Baso # (Auto) 0.03 (0.01-0.08) K/mm3 Manual Slide Review Normal smear Sodium 137 (136-145) mEq/L Potassium 4.8 (3.5-5.1) mEq/L Chloride 106 (98-107) mEq/L Carbon Dioxide 22 (21-32) mEq/L Anion Gap 13.8 (5-15) BUN 26 H (7-18) mg/dL Creatinine 1.2 (0.7-1.3) mg/dL Est Cr Clr Drug Dosing 41.73 mL/min Estimated GFR (MDRD) 57 (>60) mL/min BUN/Creatinine Ratio 21.7 H (14-18) Glucose 238 H (70-99) mg/dL POC Glucose 232 H (70-99) mg/dL Calcium 7.8 L (8.5-10.1) mg/dL Magnesium 2.2 (1.8-2.4) mg/dL Total Bilirubin 0.6 (0.2-1.0) mg/dL AST 55 H (15-37) U/L ALT 70 H (16-63) U/L Alkaline Phosphatase 106 (46-116) U/L C-Reactive Protein 2.5 H* (<1.0) mg/dL Total Protein 6.3 L (6.4-8.2) g/dl Albumin 2.6 L (3.4-5.0) g/dl Globulin 3.7 gm/dL Albumin/Globulin Ratio 0.7 L (1-2) Result Diagrams: 05/13/21 07:10 05/13/21 07:10 [place] Results Last 24 hrs: Microbiology 05/10/21 18:29 Blood Culture - Preliminary Blood - Venous - Lab Draw 05/10/21 18:14 Blood Culture - Preliminary Blood - Venous Sepsis Event Note - Evaluation Sepsis Screening Result: No Definite Risk - Focused Exam Vital Signs: Vital Signs Temp Pulse Resp BP Pulse Ox Pulse Ox 05/13/21 08:12 36.6 C 72 20 122/86 05/13/21 06:50 96 05/13/21 04:00 36.4 C 73 16 130/65 96 05/13/21 01:20 36.6 C 72 20 131/82 97 05/12/21 20:44 36.4 C 78 22 H 102/53 L 96 - Problem List & Annotations (1) Pneumonia due to COVID-19 virus SNOMED Code(s): 578364514974740073 Code(s): U07.1 - COVID-19; J12.82 - PNEUMONIA DUE TO CORONAVIRUS DISEASE 2019 Status: Acute Priority: High Current Visit: Yes (2) Hyperglycemia SNOMED Code(s): 80540600 Code(s): R73.9 - HYPERGLYCEMIA, UNSPECIFIED Status: Acute Priority: Medium Current Visit: Yes (3) Elevated d-dimer SNOMED Code(s): 657843318 Code(s): R79.89 - OTHER SPECIFIED ABNORMAL FINDINGS OF BLOOD CHEMISTRY Status: Acute Priority: Medium Current Visit: Yes - Problem List Review Problem List Initiated/Reviewed/Updated: Yes - My Orders Last 24 Hours: My Active Orders 05/12/21 08:40 Albuterol/Ipratropium [DuoNeb 3.0-0.5 MG/3 ML] 3 ml NEB Q4HRRT PRN 05/12/21 08:41 RT Aerosol Therapy [RC] ASDIRECTED 05/12/21 08:42 Benzonatate [Tessalon Perles] 100 mg PO Q8H PRN 05/13/21 05:11 CXR [Chest 1V Frontal] [CR] Routine - Assessment Assessment:: 05/11/2021 This is an 89-year-old male admitted to our hospital with COVID-19 pneumonia, weakness, and loss of appetite. He does have a history of BPH. He lives alone in [place]. He has not been hypoxic but is complaining of a productive cough. He does have I-S and Acapella. He was started on remdesivir and dexamethasone. He is also receiving zinc and vitamin C supplementation. Nursing reports the patient has been somewhat weak so we will order PT and OT. There are concerns with his appetite and if he has been able to receive appropriate meals a dietitian is consulted. RT is also consulted. Labs today show a sodium of 139. Potassium 4.9. Chloride 105. Carbon dioxide 24. Anion gap 14.9. BUN is 18. Creatinine 1.6. GFR 48. In reviewing prior labs does appear to be around his baseline. Glucose has been elevated at 273. Calcium 7.3. Total bilirubin 0.8. AST is 95, ALT 74, alkaline phosphatase 116. CRP is 6.3. Protein 6.1. Albumin 2.4. Given his elevated sugars, which were noted on prior visits, will check an A1c. We will recheck a D-dimer tomorrow along with CBC, CMP, CRP, and magnesium. He is on heparin for DVT prophylaxis. Continue current treatment plan. Unknown length of stay due to treatment for Covid pneumonia. 05/12/2021 The patient is an 89-year-old gentleman who has been admitted secondary to COVID-19 pneumonia. The patient says that he feels may be able to go home however patient has been weak and he currently lives by himself here in [place]. He has been complaining of a cough as well as some nasal congestion. The patient has been offered medication for this but he says that it does not help him. Repeat laboratory studies have been ordered for the morning. He did have an elevated D-dimer and this will be repeated. I have also ordered chest x- ray for the morning. He will continue on his current diet as tolerated. The patient also has elevations of his glucose and he will be kept on high-dose sliding scale insulin. This is likely secondary to his steroid use. The patient should be appropriate for discharge in 1 to 2 days depending upon PT OT recommendations. 05/13/2021 The patient is an 89-year-old gentleman who is doing better today. There has been some improvement in the radiographic appearance from his previous chest x- ray. For now the patient will have at least 1 more dose of remdesivir and likely appropriate for discharge tomorrow. The patient is not on oxygen but his oxygen will be monitored and if it dips below 90% will consider oxygen support to keep his saturations around 92%. Repeat laboratory studies have been ordered. He has been instructed on how to use incentive spirometer and Acapella. The patient has been encouraged to ambulate. We will continue DVT prophylaxis with use of heparin 5000 units subcu every 8 hours. The patient's diet will be continued as before. He is also on steroids and this will also be continued with the plan to taper. He should be appropriate for discharge in 2 days. - Plan Plan:: Case discussed in full. Agree with evaluation, assessment and plan.
--- NOTE | 2021-05-13 09:11 | CR ---
Chest: Frontal view of the chest was obtained. Comparison: Prior chest x-ray of 05/10/21. Slightly improved density within the right lung base is seen from prior chest x-ray. Continuing density within the left lung base which is without change. Lungs otherwise are clear. Heart size and mediastinum are normal. Bony structures show nothing acute. Impression: 1. Slightly improved density within the right lung base with no change seen within the left lung base. 2. No other acute abnormality is seen. Diagnostic code #3
[2021-05-13] MEDS: Insulin Lispro 100 UNIT/ML 10 ML Vial SUBCUT SCH ×4 (09:15→21:43)
[2021-05-13] MEDS: Zinc Sulfate 220 MG Cap PO SCH (09:17)
[2021-05-13] MEDS: Ascorbic Acid 500 MG Tab PO SCH ×2 (09:17→20:20)
[2021-05-13] MEDS: Dexamethasone 4 MG Tab PO SCH (20:20)
[2021-05-13] MEDS: REMDESIVIR 100 MG in Sodium Chloride 0.9% 100 ML IV SCH (20:20)
[2021-05-14] MEDS ORDERED: Magnesium Hydroxide 400 MG/5 ML Susp 30 ML Cup PO PRN (01:14)
[2021-05-14] MEDS: Heparin Sodium 5,000 Units/ML Vial SUBCUT SCH ×2 (03:13→12:23)
[2021-05-14] MEDS: Insulin Lispro 100 UNIT/ML 10 ML Vial SUBCUT SCH ×3 (09:17→17:25)
[2021-05-14] MEDS: Ascorbic Acid 500 MG Tab PO SCH (09:18)
[2021-05-14] MEDS: Zinc Sulfate 220 MG Cap PO SCH (09:18)
--- NOTE | 2021-05-14 10:24 | PCM.DCSUM1 ---
<Kendall Duckworth - Last Filed: 05/14/21 11:24> Discharge Summary - Hospital Course HPI Initial Comments: Patient is an 89-year-old [employer] who presents to the [facility] emergency department with a chief complaint of generally not feeling well for approximately 9 days. Most notable symptoms have been generalized body and joint aches. He has had a cough for the better part of 2 weeks with sputum production that has been green in color. He has occasionally felt hot with a some chills. No rigors have been appreciated. He has not noted any chest pain, chest pressure, pleurisy or shortness of breath. Denies any nausea vomiting or diarrhea. No abdominal pain. No difficulties with voiding. No recent skin changes. No neurologic symptoms. Has retained sense of taste and smell. No headaches. Patient presents with an acute febrile temperature. He has not appeared toxic to ER staff. Rapid COVID-19 testing was positive. Chest x-ray notable for bibasilar infiltrates. Overall physical examination, general appearance and laboratory studies are relatively modest and benign. Due to the patient's advanced age and radiographic bilateral lower lobe pneumonitis with infiltrate, the patient was referred to the internal medicine service. Of note, the patient has not been vaccinated. The patient has likely not been hypoxic up to this point. A 14 point review of systems was reviewed with the patient entirely and only pertinent for the above information. CODE STATUS: Reviewed with the patient and he wishes to be DNR/DNI. Diagnosis: Stroke: No - Discharge Data Discharge Date: 05/14/21 (Admit date: 05/10/2021) Discharge Disposition: Home, Self-Care 01 Condition: Good - Referral to Home Health Primary Care Physician: PCP Not In Area - Discharge Diagnosis/Problem(s) (1) Pneumonia due to COVID-19 virus SNOMED Code(s): 778661757636136996 ICD Code: U07.1 - COVID-19; J12.82 - PNEUMONIA DUE TO CORONAVIRUS DISEASE 2019 Status: Acute Priority: High Current Visit: Yes (2) Weakness SNOMED Code(s): 12274372 ICD Code: R53.1 - WEAKNESS Status: Acute Priority: High Current Visit: Yes (3) Benign prostatic hyperplasia SNOMED Code(s): 658360755 ICD Code: N40.0 - BENIGN PROSTATIC HYPERPLASIA WITHOUT LOWER URINRY TRACT SYMP Status: Chronic Priority: Low Current Visit: No Qualifiers: Lower urinary tract symptom presence: symptoms absent Qualified Code(s): N40.0 - Benign prostatic hyperplasia without lower urinary tract symptoms (4) Leukopenia SNOMED Code(s): 46061220, 996938305 ICD Code: D72.819 - DECREASED WHITE BLOOD CELL COUNT, UNSPECIFIED Status: Resolved Priority: Medium Current Visit: Yes Qualifiers: Leukopenia type: neutropenia Neutropenia type: due to infection Qualified Code(s): D70.3 - Neutropenia due to infection (5) Loss of appetite SNOMED Code(s): 57581341 ICD Code: R63.0 - ANOREXIA Status: Acute Priority: High Current Visit: Yes (6) Elevated d-dimer SNOMED Code(s): 061672487 ICD Code: R79.89 - OTHER SPECIFIED ABNORMAL FINDINGS OF BLOOD CHEMISTRY Status: Acute Priority: Medium Current Visit: Yes (7) Hyperglycemia SNOMED Code(s): 63094201 ICD Code: R73.9 - HYPERGLYCEMIA, UNSPECIFIED Status: Acute Priority: Medium Current Visit: Yes - Patient Summary/Data Consults: Consultations 05/10/21 19:57 Respiratory Care Assess and Treatment [CONS] Routine 05/11/21 08:31 Consult to Case Management/Combination Worker [CONS] Routine 05/11/21 10:58 Consult to Occupational Therapy [OT Evaluation and Treatment] [CONS] Routine PT Evaluation and Treatment [CONS] Routine 05/11/21 11:00 Consult to Security Compliance Specialist [CONS] Routine Labs Pending at D/C: None Recommended Follow-up Testing/Procedures: Follow-up with primary care provider within 7-10 days of discharge, sooner if needed. * Recommend repeat CBC, CMP, and magnesium at follow-up * A1C was 6.8% however patient is 89 years old. PCP please monitor * Discharged on 81mg ASA due to elevated D-Dimer and COVID. Discuss discontinuing after symptoms resolve. * Discharged on zinc supplementation and also Tessalon Perles PRN for cough * Advised patient to continue isolation/quarantine for 20 days from onset of symptoms * Not discharged on any steroids Hospital Course: This is an 89-year-old male with BPH but no other significant medical problems who presents to ED on 05/10/2021 via ambulance complaining of 9 days of sickness. He reports loss of voice, hoarseness, sore throat, nasal congestion, fever, chills, headache, generalized myalgias, weakness, productive cough, and some diarrhea. He was not hypoxic in the ED however his chest x-ray shows findings suspicious for multifocal pneumonia. Please rule out Covid disease. He was indeed Covid positive and noted to have leukopenia, mildly elevated D-dimer, acute renal injury, and elevated LDH. Procalcitonin was obtained and was 0.22. UA was negative. Patient was noted to have elevated blood glucose throughout his stay and A1c was checked and was 6.8. He is placed on remdesivir and dexamethasone. He is also started on vitamin C and zinc supplementation. Blood cultures remain negative. He has not required any oxygen. He has been doing quite well. He has been utilizing his incentive spirometry and Acapella and proning. He completed 5 days of remdesivir today and will be discharged. He did work with PT and OT who are recommending he be discharged home independent. He was instructed to continue to isolate for 20 days from symptom onset. He wi ll not be discharged on any steroids. He will be discharged on as needed Tessalon Perles for cough. He will also be discharged on 81 mg daily aspirin due to his mildly elevated D-dimer, which has been trending down. He will be discharged on zinc supplementation as well. He was instructed follow-up with his primary care provider within 7 to 10 days of discharge, sooner if needed. Recommend repeat CBC, CMP, and magnesium at that visit. Recommend PCP pay particular attention to patient's blood glucose reading, as nothing will be started at discharge. Again patient was not requiring oxygen and will not be discharged on any. He was directed to follow-up with his primary care provider return the emergency room should symptoms return or worsen. Patient discharged home today. - Patient Instructions Diet: Usual Diet as Tolerated Activity: As Tolerated Driving: Do Not Drive Showering/Bathing: May Shower Notify Provider of: Fever, Increased Pain, Nausea and/or Vomiting Other/Special Instructions: Follow-up with primary care provider within 7 to 10 days of discharge, sooner if needed. You completed your steroid and remdesivir treatment while here. No meds will be prescribed for this at discharge. You were started on zinc supplementation as some studies have suggested that this can help with Covid symptoms. Please continue this for now and discuss with your primary care provider if you should continue in the future. You were started on a daily baby aspirin of 81 mg. You should continue this daily, as Covid increases your risk of clotting. You may discuss this with your primary care provider in the future and discontinue at their discretion. You were sent a medication called Janet Billings. These are a cough medication and should be used as needed, as directed. You should continue to utilize your incentive spirometer (clear/blue device you inhale through) and Acapella (green device you blow through) for 1 to 2 weeks or until symptoms resolve. You have not needed oxygen while here so none will be prescribed. You should continue to isolate/quarantine for 20 days from the onset of symptoms. Be aware you will likely be contacted by a secretary from the [facility]. Follow their instructions. Should symptoms return or worsen contact primary care provider or return to the emergency room. - Discharge Plan *PRESCRIPTION DRUG MONITORING PROGRAM REVIEWED*: Not Applicable *COPY OF PRESCRIPTION DRUG MONITORING REPORT IN PATIENT ANEL: Not Applicable Prescriptions/Med Rec: Aspirin 81 mg PO DAILY #20 tab.chew Benzonatate [Tessalon Perle] 100 mg PO TID PRN #20 capsule PRN Reason: Cough Zinc Sulfate [Zincate] 220 mg PO DAILY #20 cap Home Medications: Home Meds Aspirin 81 mg PO DAILY #20 tab.chew 05/14/21 [Rx] Benzonatate [Tessalon Perle] 100 mg PO TID PRN #20 capsule 05/14/21 [Rx] Zinc Sulfate [Zincate] 220 mg PO DAILY #20 cap 05/14/21 [Rx] Oxygen Therapy Mode: Room Air Patient Handouts: COVID-19 Forms: ED Department Discharge Referrals: Kevin Anthony MD [Ordering Only Provider] - (This is the provider that pt will see through the [facility] [place], if patient wishes he can ask to see a provider closer to home (phone # to call with appt. is [phone] call to schedule your own appontment when you have a ride available) - Discharge Summary/Plan Comment DC Time >30 min.: Yes Total # of Minutes for Discharge Time: 45 - General Info Date of Service: 05/14/21 Admission Dx/Problem (Free Text: Admission Diagnosis/Problem Admission Diagnosis/Problem Pneumonia due to COVID-19 Functional Status: Reports: Pain Controlled, Tolerating Diet, Ambulating, Urinating, Incentive Spirometry, Other (Acapella ). Denies: New Symptoms - Review of Systems General: Reports: Weakness (improved ). Denies: Fever, Fatigue, Malaise, Chills HEENT: Reports: No Symptoms. Denies: Headaches, Sore Throat Pulmonary: Reports: No Symptoms. Denies: Shortness of Breath, Cough, Sputum, Wheezing Cardiovascular: Reports: No Symptoms. Denies: Chest Pain, Palpitations, Dyspnea on Exertion, Edema Gastrointestinal: Reports: No Symptoms. Denies: Abdominal Pain, Constipation, Diarrhea, Nausea, Vomiting Genitourinary: Reports: No Symptoms. Denies: Pain Musculoskeletal: Reports: No Symptoms Skin: Reports: No Symptoms. Denies: Cyanosis Neurological: Reports: No Symptoms. Denies: Confusion, Numbness, Pre-Existing Deficit, Tingling, Difficulty Walking Psychiatric: Reports: No Symptoms - Patient Data Vitals - Most Recent: Last Vital Signs Temp 98.6 F 05/14/21 07:33 Pulse 83 05/14/21 05:27 Resp 18 05/14/21 07:33 BP 122/67 05/14/21 07:33 Pulse Ox 99 05/14/21 08:00 Weight - Most Recent: 98.52 kg I&O - Last 24 hours: Intake & Output 05/13/21 05/14/21 05/14/21 22:59 06:59 14:59 Intake Total 1430 700 Balance 1430 700 Lab Results - Last 24 hrs: Laboratory Results - last 24 hr 05/13/21 05/13/21 05/13/21 Range/Units 10:47 16:58 20:54 WBC (4.23-9.07) K/mm3 RBC (4.63-6.08) M/mm3 Hgb (13.7-17.5) gm/dl Hct (40.1-51.0) % MCV (79.0-92.2) fl MCH (25.7-32.2) pg MCHC (32.2-35.5) g/dl RDW Std Deviation (35.1-43.9) fL Plt Count (163-337) K/mm3 MPV (9.4-12.3) fl Neut % (Auto) (34.0-67.9) % Lymph % (Auto) (21.8-53.1) % Runnels % (Auto) (5.3-12.2) % Eos % (Auto) (0.8-7.0) Baso % (Auto) (0.1-1.2) % Neut # (Auto) (1.78-5.38) K/mm3 Lymph # (Auto) (1.32-3.57) K/mm3 Runnels # (Auto) (0.30-0.82) K/mm3 Eos # (Auto) (0.04-0.54) K/mm3 Baso # (Auto) (0.01-0.08) K/mm3 Manual Slide Review D-Dimer, Quantitative (0.19-0.50) mg/L Sodium (136-145) mEq/L Potassium (3.5-5.1) mEq/L Chloride (98-107) mEq/L Carbon Dioxide (21-32) mEq/L Anion Gap (5-15) BUN (7-18) mg/dL Creatinine (0.7-1.3) mg/dL Est Cr Clr Drug Dosing mL/min Estimated GFR (MDRD) (>60) mL/min BUN/Creatinine Ratio (14-18) Glucose (70-99) mg/dL POC Glucose 306 H 225 H 237 H (70-99) mg/dL Calcium (8.5-10.1) mg/dL Magnesium (1.8-2.4) mg/dL Total Bilirubin (0.2-1.0) mg/dL AST (15-37) U/L ALT (16-63) U/L Alkaline Phosphatase (46-116) U/L C-Reactive Protein (<1.0) mg/dL Total Protein (6.4-8.2) g/dl Albumin (3.4-5.0) g/dl Globulin gm/dL Albumin/Globulin Ratio (1-2) 05/14/21 05/14/21 05/14/21 Range/Units 05:00 05:00 05:00 WBC 7.90 (4.23-9.07) K/mm3 RBC 5.47 (4.63-6.08) M/mm3 Hgb 15.9 (13.7-17.5) gm/dl Hct 48.7 (40.1-51.0) % MCV 89.0 (79.0-92.2) fl MCH 29.1 (25.7-32.2) pg MCHC 32.6 (32.2-35.5) g/dl RDW Std Deviation 48.7 H (35.1-43.9) fL Plt Count 231 (163-337) K/mm3 MPV 11.3 (9.4-12.3) fl Neut % (Auto) 82.4 H (34.0-67.9) % Lymph % (Auto) 9.5 L (21.8-53.1) % Runnels % (Auto) 6.5 (5.3-12.2) % Eos % (Auto) 0 L (0.8-7.0) Baso % (Auto) 0.3 (0.1-1.2) % Neut # (Auto) 6.52 H (1.78-5.38) K/mm3 Lymph # (Auto) 0.75 L (1.32-3.57) K/mm3 Runnels # (Auto) 0.51 (0.30-0.82) K/mm3 Eos # (Auto) 0.00 L (0.04-0.54) K/mm3 Baso # (Auto) 0.02 (0.01-0.08) K/mm3 Manual Slide Review Abnormal smear D-Dimer, Quantitative 0.77 H (0.19-0.50) mg/L Sodium 140 (136-145) mEq/L Potassium 5.3 H (3.5-5.1) mEq/L Chloride 105 (98-107) mEq/L Carbon Dioxide 28 (21-32) mEq/L Anion Gap 12.3 (5-15) BUN 28 H (7-18) mg/dL Creatinine 1.3 (0.7-1.3) mg/dL Est Cr Clr Drug Dosing 38.52 mL/min Estimated GFR (MDRD) 52 (>60) mL/min BUN/Creatinine Ratio 21.5 H (14-18) Glucose 258 H (70-99) mg/dL POC Glucose (70-99) mg/dL Calcium 8.3 L (8.5-10.1) mg/dL Magnesium 2.4 (1.8-2.4) mg/dL Total Bilirubin 0.8 (0.2-1.0) mg/dL AST 73 H (15-37) U/L ALT 89 H (16-63) U/L Alkaline Phosphatase 112 (46-116) U/L C-Reactive Protein 1.6 H* (<1.0) mg/dL Total Protein 6.9 (6.4-8.2) g/dl Albumin 2.9 L (3.4-5.0) g/dl Globulin 4.0 gm/dL Albumin/Globulin Ratio 0.7 L (1-2) Med Orders - Current: Current Medications Acetaminophen (Acetaminophen 325 Mg Tab) 650 mg PO Q4H PRN PRN Reason: Fever Greater Than 101 Albuterol (Albuterol 6.7 Gm Inhaler) 0 gm INH Q2H PRN PRN Reason: SOB/Wheezing Albuterol/Ipratropium (Albuterol/Ipratropium 3.0-0.5 Mg/3 Ml Neb Soln) 3 ml NEB Q4HRRT PRN PRN Reason: Shortness of Breath Ascorbic Acid (Ascorbic Acid 500 Mg Tab) 500 mg PO BID [facility] Last Admin: 05/14/21 09:18 Dose: 500 mg Documented by: Benzonatate (Benzonatate 100 Mg Cap) 100 mg PO Q8H PRN PRN Reason: Cough Last Admin: 05/12/21 20:31 Dose: 100 mg Documented by: Docusate Sodium (Docusate Sodium 100 Mg Cap) 100 mg PO BID PRN PRN Reason: Constipation Last Admin: 05/10/21 21:08 Dose: 100 mg Documented by: Guaifenesin/Phenylephrine HCl (Guaifenesin/Dextromethorphan 100-10 Mg/5 Ml Soln 5 Ml Cup) 10 ml PO Q4H PRN PRN Reason: Cough Last Admin: 05/12/21 04:45 Dose: 10 ml Documented by: Heparin Sodium (Porcine) (Heparin Sodium 5,000 Units/Ml Vial) 5,000 units SUBCUT Q8H [facility] Last Admin: 05/14/21 03:13 Dose: 5,000 units Documented by: Remdesivir 100 mg/ Sodium (Chloride) 100 mls @ 100 mls/hr IV Q24H [facility] Stop: 05/14/21 13:59 Insulin Human Lispro (Insulin Lispro 100 Unit/Ml 10 Ml Vial) 0 unit SUBCUT QIDACANDBED [facility]; Protocol Last Admin: 05/14/21 09:17 Dose: 3 units Documented by: Magnesium Hydroxide (Magnesium Hydroxide 400 Mg/5 Ml Susp 30 Ml Cup) 30 ml PO Q4H PRN PRN Reason: Constipation Last Admin: 05/14/21 03:14 Dose: 30 ml Documented by: Ondansetron HCl (Ondansetron 4 Mg Tab.Dis) 4 mg PO Q4H PRN PRN Reason: nausea, able to take PO Ondansetron HCl (Ondansetron 4 Mg/2 Ml Sdv) 4 mg IV Q4H PRN PRN Reason: Nausea/Vomiting Sodium Chloride (Sodium Chloride 0.9% 10 Ml Syringe) 10 ml FLUSH ASDIRECTED PRN PRN Reason: Keep Vein Open Zinc Sulfate (Zinc Sulfate 220 Mg Cap) 220 mg PO DAILY [facility] Last Admin: 05/14/21 09:18 Dose: 220 mg Documented by: Discontinued Medications Acetaminophen (Acetaminophen 325 Mg Tab) 650 mg PO ONETIME ONE Stop: 05/10/21 17:58 Last Admin: 05/10/21 18:10 Dose: 650 mg Documented by: Albuterol/Ipratropium (Albuterol/Ipratropium 3.0-0.5 Mg/3 Ml Neb Soln) 3 ml NEB QIDRT PRN PRN Reason: wheezing/SOB/cough Last Admin: 05/12/21 09:21 Dose: 3 ml Documented by: Dexamethasone (Dexamethasone 4 Mg Tab) 6 mg PO DAILY [facility] Stop: 05/19/21 09:01 Last Admin: 05/10/21 21:10 Dose: 6 mg Documented by: Dexamethasone (Dexamethasone 4 Mg Tab) 6 mg PO DAILY@1999 [facility] Stop: 05/19/21 20:01 Last Admin: 05/13/21 20:20 Dose: 6 mg Documented by: Dextrose/Sodium Chloride (Dextrose 5%-Normal Saline) 1,000 mls @ 500 mls/hr IV ASDIRECTED [facility] Last Admin: 05/10/21 18:10 Dose: 500 mls/hr Documented by: Dextrose/Sodium Chloride (Dextrose 5%-Normal Saline) 1,000 mls @ 150 mls/hr IV ASDIRECTED [facility] Last Infusion: 05/11/21 05:40 Dose: 0 mls/hr Documented by: Remdesivir 200 mg/ Sodium (Chloride) 250 mls @ 250 mls/hr IV ONETIME ONE Stop: 05/10/21 20:03 Last Admin: 05/10/21 22:18 Dose: 250 mls/hr Documented by: Remdesivir 100 mg/ Sodium (Chloride) 100 mls @ 100 mls/hr IV Q24H [facility] Stop: 05/14/21 20:59 Last Admin: 05/13/21 20:20 Dose: 100 mls/hr Documented by: - Exam Quality Assessment: Reports: DVT Prophylaxis. Denies: Supplemental Oxygen, Urine Catheter General: Reports: Alert, Oriented, Cooperative, No Acute Distress HEENT: Reports: Pupils Equal, Pupils Reactive, Mucous Membr. Moist/[place] Neck: Reports: Supple, Trachea Midline Lungs: Reports: Clear to Auscultation, Normal Respiratory Effort. Denies: Crackles, Rales, Rhonchi, Wheezing Cardiovascular: Reports: Regular Rate, Regular Rhythm GI/Abdominal Exam: Normal Bowel Sounds, Soft, Non-Tender, No Distention (Male) Exam: Deferred Rectal (Males) Exam: Deferred Back Exam: Reports: Normal Inspection, Full Range of Motion Extremities: Normal Inspection, Normal Range of Motion, Non-Tender, No Pedal Edema, Normal Capillary Refill Skin: Reports: Warm, Dry, Intact Neurological: Reports: No New Focal Deficit Psy/Mental Status: Reports: Alert, Normal Affect, Normal Mood <Yoandy Monterroso M - Last Filed: 05/14/21 13:37> Discharge Summary - Referral to Home Health Primary Care Physician: PCP Not In Area - Discharge Diagnosis/Problem(s) (1) Pneumonia due to COVID-19 virus SNOMED Code(s): 282678027367058091 ICD Code: U07.1 - COVID-19; J12.82 - PNEUMONIA DUE TO CORONAVIRUS DISEASE 2019 Status: Acute Priority: High Current Visit: Yes (2) Hyperglycemia SNOMED Code(s): 06720199 ICD Code: R73.9 - HYPERGLYCEMIA, UNSPECIFIED Status: Acute Priority: Medium Current Visit: Yes (3) Elevated d-dimer SNOMED Code(s): 713766933 ICD Code: R79.89 - OTHER SPECIFIED ABNORMAL FINDINGS OF BLOOD CHEMISTRY Status: Acute Priority: Medium Current Visit: Yes - Patient Summary/Data Consults: Consultations 05/10/21 19:57 Respiratory Care Assess and Treatment [CONS] Routine 05/11/21 08:31 Consult to Case Management/Combination Worker [CONS] Routine 05/11/21 10:58 Consult to Occupational Therapy [OT Evaluation and Treatment] [CONS] Routine PT Evaluation and Treatment [CONS] Routine 05/11/21 11:00 Consult to Security Compliance Specialist [CONS] Routine - Patient Data Vitals - Most Recent: Last Vital Signs Temp 36.7 C 05/14/21 11:01 Pulse 86 05/14/21 11:25 Resp 16 05/14/21 11:01 BP 120/66 05/14/21 11:01 Pulse Ox 95 05/14/21 11:25 I&O - Last 24 hours: Intake & Output 05/13/21 05/14/21 05/14/21 22:59 06:59 14:59 Intake Total 1430 700 Balance 1430 700 Lab Results - Last 24 hrs: Laboratory Results - last 24 hr 05/13/21 05/13/21 05/14/21 Range/Units 16:58 20:54 05:00 WBC 7.90 (4.23-9.07) K/mm3 RBC 5.47 (4.63-6.08) M/mm3 Hgb 15.9 (13.7-17.5) gm/dl Hct 48.7 (40.1-51.0) % MCV 89.0 (79.0-92.2) fl MCH 29.1 (25.7-32.2) pg MCHC 32.6 (32.2-35.5) g/dl RDW Std Deviation 48.7 H (35.1-43.9) fL Plt Count 231 (163-337) K/mm3 MPV 11.3 (9.4-12.3) fl Neut % (Auto) 82.4 H (34.0-67.9) % Lymph % (Auto) 9.5 L (21.8-53.1) % Runnels % (Auto) 6.5 (5.3-12.2) % Eos % (Auto) 0 L (0.8-7.0) Baso % (Auto) 0.3 (0.1-1.2) % Neut # (Auto) 6.52 H (1.78-5.38) K/mm3 Lymph # (Auto) 0.75 L (1.32-3.57) K/mm3 Runnels # (Auto) 0.51 (0.30-0.82) K/mm3 Eos # (Auto) 0.00 L (0.04-0.54) K/mm3 Baso # (Auto) 0.02 (0.01-0.08) K/mm3 Manual Slide Review Abnormal smear D-Dimer, Quantitative (0.19-0.50) mg/L Sodium (136-145) mEq/L Potassium (3.5-5.1) mEq/L Chloride (98-107) mEq/L Carbon Dioxide (21-32) mEq/L Anion Gap (5-15) BUN (7-18) mg/dL Creatinine (0.7-1.3) mg/dL Est Cr Clr Drug Dosing mL/min Estimated GFR (MDRD) (>60) mL/min BUN/Creatinine Ratio (14-18) Glucose (70-99) mg/dL POC Glucose 225 H 237 H (70-99) mg/dL Calcium (8.5-10.1) mg/dL Magnesium (1.8-2.4) mg/dL Total Bilirubin (0.2-1.0) mg/dL AST (15-37) U/L ALT (16-63) U/L Alkaline Phosphatase (46-116) U/L C-Reactive Protein (<1.0) mg/dL Total Protein (6.4-8.2) g/dl Albumin (3.4-5.0) g/dl Globulin gm/dL Albumin/Globulin Ratio (1-2) 05/14/21 05/14/21 Range/Units 05:00 05:00 WBC (4.23-9.07) K/mm3 RBC (4.63-6.08) M/mm3 Hgb (13.7-17.5) gm/dl Hct (40.1-51.0) % MCV (79.0-92.2) fl MCH (25.7-32.2) pg MCHC (32.2-35.5) g/dl RDW Std Deviation (35.1-43.9) fL Plt Count (163-337) K/mm3 MPV (9.4-12.3) fl Neut % (Auto) (34.0-67.9) % Lymph % (Auto) (21.8-53.1) % Runnels % (Auto) (5.3-12.2) % Eos % (Auto) (0.8-7.0) Baso % (Auto) (0.1-1.2) % Neut # (Auto) (1.78-5.38) K/mm3 Lymph # (Auto) (1.32-3.57) K/mm3 Runnels # (Auto) (0.30-0.82) K/mm3 Eos # (Auto) (0.04-0.54) K/mm3 Baso # (Auto) (0.01-0.08) K/mm3 Manual Slide Review D-Dimer, Quantitative 0.77 H (0.19-0.50) mg/L Sodium 140 (136-145) mEq/L Potassium 5.3 H (3.5-5.1) mEq/L Chloride 105 (98-107) mEq/L Carbon Dioxide 28 (21-32) mEq/L Anion Gap 12.3 (5-15) BUN 28 H (7-18) mg/dL Creatinine 1.3 (0.7-1.3) mg/dL Est Cr Clr Drug Dosing 38.52 mL/min Estimated GFR (MDRD) 52 (>60) mL/min BUN/Creatinine Ratio 21.5 H (14-18) Glucose 258 H (70-99) mg/dL POC Glucose (70-99) mg/dL Calcium 8.3 L (8.5-10.1) mg/dL Magnesium 2.4 (1.8-2.4) mg/dL Total Bilirubin 0.8 (0.2-1.0) mg/dL AST 73 H (15-37) U/L ALT 89 H (16-63) U/L Alkaline Phosphatase 112 (46-116) U/L C-Reactive Protein 1.6 H* (<1.0) mg/dL Total Protein 6.9 (6.4-8.2) g/dl Albumin 2.9 L (3.4-5.0) g/dl Globulin 4.0 gm/dL Albumin/Globulin Ratio 0.7 L (1-2) Med Orders - Current: Current Medications Acetaminophen (Acetaminophen 325 Mg Tab) 650 mg PO Q4H PRN PRN Reason: Fever Greater Than 101 Albuterol (Albuterol 6.7 Gm Inhaler) 0 gm INH Q2H PRN PRN Reason: SOB/Wheezing Albuterol/Ipratropium (Albuterol/Ipratropium 3.0-0.5 Mg/3 Ml Neb Soln) 3 ml NEB Q4HRRT PRN PRN Reason: Shortness of Breath Ascorbic Acid (Ascorbic Acid 500 Mg Tab) 500 mg PO BID [facility] Last Admin: 05/14/21 09:18 Dose: 500 mg Documented by: Benzonatate (Benzonatate 100 Mg Cap) 100 mg PO Q8H PRN PRN Reason: Cough Last Admin: 05/12/21 20:31 Dose: 100 mg Documented by: Docusate Sodium (Docusate Sodium 100 Mg Cap) 100 mg PO BID PRN PRN Reason: Constipation Last Admin: 05/10/21 21:08 Dose: 100 mg Documented by: Guaifenesin/Phenylephrine HCl (Guaifenesin/Dextromethorphan 100-10 Mg/5 Ml Soln 5 Ml Cup) 10 ml PO Q4H PRN PRN Reason: Cough Last Admin: 05/12/21 04:45 Dose: 10 ml Documented by: Heparin Sodium (Porcine) (Heparin Sodium 5,000 Units/Ml Vial) 5,000 units SUBCUT Q8H [facility] Last Admin: 05/14/21 12:23 Dose: 5,000 units Documented by: Remdesivir 100 mg/ Sodium (Chloride) 100 mls @ 100 mls/hr IV Q24H [facility] Stop: 05/14/21 13:59 Last Admin: 05/14/21 12:24 Dose: 100 mls/hr Documented by: Insulin Human Lispro (Insulin Lispro 100 Unit/Ml 10 Ml Vial) 0 unit SUBCUT QIDACANDBED [facility]; Protocol Last Admin: 05/14/21 12:23 Dose: 4 units Documented by: Magnesium Hydroxide (Magnesium Hydroxide 400 Mg/5 Ml Susp 30 Ml Cup) 30 ml PO Q4H PRN PRN Reason: Constipation Last Admin: 05/14/21 03:14 Dose: 30 ml Documented by: Ondansetron HCl (Ondansetron 4 Mg Tab.Dis) 4 mg PO Q4H PRN PRN Reason: nausea, able to take PO Ondansetron HCl (Ondansetron 4 Mg/2 Ml Sdv) 4 mg IV Q4H PRN PRN Reason: Nausea/Vomiting Sodium Chloride (Sodium Chloride 0.9% 10 Ml Syringe) 10 ml FLUSH ASDIRECTED PRN PRN Reason: Keep Vein Open Zinc Sulfate (Zinc Sulfate 220 Mg Cap) 220 mg PO DAILY [facility] Last Admin: 05/14/21 09:18 Dose: 220 mg Documented by: Discontinued Medications Acetaminophen (Acetaminophen 325 Mg Tab) 650 mg PO ONETIME ONE Stop: 05/10/21 17:58 Last Admin: 05/10/21 18:10 Dose: 650 mg Documented by: Albuterol/Ipratropium (Albuterol/Ipratropium 3.0-0.5 Mg/3 Ml Neb Soln) 3 ml NEB QIDRT PRN PRN Reason: wheezing/SOB/cough Last Admin: 05/12/21 09:21 Dose: 3 ml Documented by: Dexamethasone (Dexamethasone 4 Mg Tab) 6 mg PO DAILY [facility] Stop: 05/19/21 09:01 Last Admin: 05/10/21 21:10 Dose: 6 mg Documented by: Dexamethasone (Dexamethasone 4 Mg Tab) 6 mg PO DAILY@1999 [facility] Stop: 05/19/21 20:01 Last Admin: 05/13/21 20:20 Dose: 6 mg Documented by: Dextrose/Sodium Chloride (Dextrose 5%-Normal Saline) 1,000 mls @ 500 mls/hr IV ASDIRECTED [facility] Last Admin: 05/10/21 18:10 Dose: 500 mls/hr Documented by: Dextrose/Sodium Chloride (Dextrose 5%-Normal Saline) 1,000 mls @ 150 mls/hr IV ASDIRECTED [facility] Last Infusion: 05/11/21 05:40 Dose: 0 mls/hr Documented by: Remdesivir 200 mg/ Sodium (Chloride) 250 mls @ 250 mls/hr IV ONETIME ONE Stop: 05/10/21 20:03 Last Admin: 05/10/21 22:18 Dose: 250 mls/hr Documented by: Remdesivir 100 mg/ Sodium (Chloride) 100 mls @ 100 mls/hr IV Q24H [facility] Stop: 05/14/21 20:59 Last Admin: 05/13/21 20:20 Dose: 100 mls/hr Documented by: - Free Text/Narrative Note: I have seen and examined the patient independently of Kendall Duckworth PA-C and have discussed the case with him. I have reviewed and agree with the orders and plan of care outlined by him. Please see orders.
[2021-05-14] MEDS ORDERED: REMDESIVIR 100 MG in Sodium Chloride 0.9% 100 ML IV SCH (13:00)
== END 2021-05-14 18:20 | disposition home or self-care (01) | DRG 177 ==
LOC: JD.ED 17:04 → UNDOADMIN 19:57 → JD.MS 19:57
PROVIDERS: ADMIT Hospitalist; ATTEND Hospitalist
PROC: XW033E5 Introduction of Remdesivir Anti-infective into Peripheral Vein, Percutaneous Approach, New Technology Group 5 (ICD-10-PCS; principal; 2021-05-10)
PROC: 8E0ZXY6 Isolation (ICD-10-PCS; principal; 2021-05-10)
DX: U07.1 COVID-19 (principal); J12.82 Pneumonia due to coronavirus disease 2019; R53.1 Weakness; Z66 Do not resuscitate; N40.0 Benign prostatic hyperplasia without lower urinary tract symptoms; N40.1 Benign prostatic hyperplasia with lower urinary tract symptoms; R39.14 Feeling of incomplete bladder emptying; D70.3 Neutropenia due to infection; R63.0 Anorexia; R79.89 Other specified abnormal findings of blood chemistry; R73.9 Hyperglycemia, unspecified; Z79.82 Long term (current) use of aspirin; Z79.899 Other long term (current) drug therapy; Z90.49 Acquired absence of other specified parts of digestive tract
CPT/HCPCS: 36415; 71045; 80053; 81001; 83615; 83735; 83880; 84145; 84484; 85007; 85027; 85379; 85610; 85652; 85730; 86140; 87040 ×2; 87635; 93005; 99285; A9270; J7042; 82947; 83036; 85025; 93010; 94640; 94668; 94762; 97161-GP; 99222; 99232; 99233; 99239; J1644; J1815-GY; J7050; J7620-GY; J8540; U0002